=== PATIENT | male | born 1935 | race Asian ===

== ENCOUNTER 2017-07-22 12:21 | Emergency (ER) | payer OTHER ==
[~2017-07-22] VITALS: Ht 152.4 cm; Wt 49.0 kg
[2017-07-22] MEDS ORDERED: IV NORMAL SALINE 1000ML BAG 1,000 ML IV SCH ×3 (13:49→14:55)
[2017-07-22] MEDS ORDERED: DEXAMETHASONE SOD PHOS 20 MG/5 ML VIAL. IV ONE (14:00)
[2017-07-22] MEDS ORDERED: diphenhydrAMINE 50 MG/ML VIAL IVP ONE (14:00)
[2017-07-22] MEDS ORDERED: ONDANSETRON PF 4 MG/2 ML VIAL. IV ONE (14:00)
[2017-07-22] MEDS ORDERED: KETOROLAC 30 MG/ML INJ. IV ONE (14:00)
[2017-07-22] MEDS ORDERED: 0.9 % SODIUM CHLORIDE 10 ML DISP.SYRIN. IV PRN ×2 (14:00→15:00)
[2017-07-22 14:04] LABS: BASO % 1 % (0-3); EOS % 2 % (0-3); HEMATOCRIT 41.7 % (39.0-53.0); HEMOGLOBIN 13.8 g/dL (13.0-17.5); LYMPH # 1.7 x10^3/uL (1.0-4.8); LYMPH % 28 % (24-48); MEAN CORPUSCULAR HEMOGLOBIN 29 pg (25-35); MEAN CORPUSCULAR HGB CONC 33 g/dL (31-37); MEAN CORPUSCULAR VOLUME 88 fL (79-100); MONO % 10 % (0-9); NEUT % 60 % (31-73); PLATELET COUNT 126 x10^3/uL (140-400); RED BLOOD COUNT 4.73 x10^6/uL (4.30-5.70); WHITE BLOOD COUNT 5.9 x10^3/uL (4.0-11.0)
[2017-07-22 14:18] LABS: CALCIUM 9.3 mg/dL (8.5-10.1); CREATININE 0.8 mg/dL (0.7-1.3); GFR 92.3
--- NOTE | 2017-07-22 14:21 | RAD ---
CT of the head without contrast, 07/22/2017: History: Migraine headache There is moderate cerebral atrophy. The ventricles are within normal limits in size. There is no shift of the midline structures. There is no evidence of acute intracranial hemorrhage or mass effect. IMPRESSION: 1. Cerebral atrophy. 2. No acute intracranial abnormality is detected. PQRS Compliance Statement: One or more of the following individualized dose reduction techniques were utilized for this examination: 1. Automated exposure control 2. Adjustment of the mA and/or kV according to patient size 3. Use of iterative reconstruction technique
[2017-07-22 14:23] LABS: ALBUMIN 3.2 g/dL (3.4-5.0); DIRECT BILIRUBIN 0.1 mg/dL (0.0-0.2); TOTAL BILIRUBIN 0.4 mg/dL (0.2-1.0); TOTAL PROTEIN 7.6 g/dL (6.4-8.2)
[2017-07-22 14:35] LABS: BILIRUBIN,URINE NEGATIVE (NEG); GLUCOSE,URINE NEGATIVE (NEG); NITRITE,URINE NEGATIVE (NEG); PH,URINE 7.5; PROTEIN,URINE NEGATIVE (NEG-TRACE); UROBILINOGEN,URINE 0.2 mg/dL (0.2 mg/dL)
--- NOTE | 2017-07-22 14:43 | EKG ---
[facility] [address] [place] [address] Test Date: 2017-07-22 Test Time: 12:40:19 Pat Name: KEV PERAZA Department: Room: Gender: M Pediatric Psychiatrist: : 1935 Requested By: HOLDEN MONROE Order Number: [id number] Reading MD: Jason Abdi MD Measurements Intervals [place] Rate: 79 P: 35 LA: 140 QRS: -11 QRSD: 78 T: 51 QT: 412 QTc: 474 Interpretive Statements SINUS RHYTHM NON-SPECIFIC ST/T CHANGES Electronically Signed On 07-22-2017 16:08:07 TRAP SETTER by Jason Abdi MD
[2017-07-22 14:45] LABS: RBC,URINE 0 /HPF (0-2); WBC,URINE OCC /HPF (0-4)
[2017-07-22 14:46] LABS: BACTERIA,URINE 0 /HPF (0-FEW)
--- NOTE | 2017-07-22 14:50 | PHYS DOC ---
Past Medical History Past Medical History: COPD, Dementia, Migraines, Other Additional Past Medical Histor: enlarged prostate, Past Surgical History: No Surgical History Alcohol Use: None Drug Use: None Adult General Chief Complaint Chief Complaint: HEADACHE HPI HPI As patient is a pleasant 82-year-old male with a history of migraines, prostate hyperplasia, hypertension, depression, COPD who presents with headache that is intermittent for last week. Patient has a known history of migraine disorders and barely is on Imitrex for a long time and has been recently discharged on that medication. He's had persistent daily headaches since that is gotten progressively worse with intermittent bouts of nausea and vomiting secondary to the headaches. Patient has developed increasing postural dizziness is worse with standing. Patient is a headache as dull and achy typical get over his entire scalp and skull is not worse of life and not sudden onset. There is no fevers associated with it. The vomiting is intermittent nonbilious nonbloody. Patient denies any sick contacts or travel outside the country. He further denies any trauma. He has no neck pain or neck stiffness with associated with this headache. Patient denies any shortness of breath or abdominal pain diarrhea or sick contacts. Patient is not normally on any medications for blood pressure and his blood pressures elevated upon arrival. His as best we can tell moderate patient is very hard of hearing and speaks only a dialect from [facility] his son is translating for us because there is no point using the translation phone as the patient cannot hear the questions anyhow. Review of Systems Review of Systems Constitutional: Denies fever or chills [] Eyes: Denies change in visual acuity, redness, or eye pain [] HENT: Denies nasal congestion or sore throat [] Respiratory: Denies cough or shortness of breath [] Cardiovascular: No additional information not addressed in HPI [] GI: Denies abdominal pain, bloody stools or diarrhea but has had some nausea and vomiting : Denies dysuria or hematuria [] Musculoskeletal: Denies back pain or joint pain [] Integument: Denies rash or skin lesions [] Neurologic: Patient is a persistent headache over the top of the skull not described as worse of life sudden onset is dull aching in nature worse with position changes Endocrine: Denies polyuria or polydipsia [] All other systems were reviewed and found to be within normal limits, except as documented in this note. Current Medications Current Medications Current Medications Medications (Trade) Dose Ordered Sig/Ayleen Start Time Stop Time Status Last Admin Dose Admin Dexamethasone Sodium Phosphate (Decadron) 10 mg 1X ONCE 07/22/17 14:00 07/22/17 14:27 DC Diphenhydramine HCl (Benadryl) 50 mg 1X ONCE 07/22/17 14:00 07/22/17 14:27 DC Ketorolac Tromethamine (Toradol) 30 mg 1X ONCE 07/22/17 14:00 07/22/17 14:27 DC Labetalol HCl (Normodyne) 20 mg 1X ONCE 07/22/17 15:00 07/22/17 15:01 Ondansetron HCl (Zofran) 4 mg 1X ONCE 07/22/17 14:00 07/22/17 14:27 DC Sodium Chloride (Normal Saline Flush) 10 ml QSHIFT PRN 07/22/17 14:00 Allergies Allergies Allergies Coded Allergies Type Severity Reaction Last Updated Verified No Known Drug Allergies 07/22/17 No Physical Exam Physical Exam Constitutional: Well developed, well nourished, no acute distress, non-toxic appearance. [] HENT: Normocephalic, atraumatic, bilateral external ears normal, oropharynx moist, no oral exudates, nose normal. [] Eyes: PERRLA, EOMI, conjunctiva normal, no discharge. [] Neck: Normal range of motion, no tenderness, supple, no stridor. [] Cardiovascular:Heart rate regular rhythm, no murmur [] Lungs & Thorax: Bilateral breath sounds clear to auscultation [] Abdomen: Bowel sounds normal, soft, no tenderness, no masses, no pulsatile masses. [] Skin: Warm, dry, no erythema, no rash. [] Back: No tenderness, no CVA tenderness. [] Extremities: No tenderness, no cyanosis, no clubbing, ROM intact, no edema. [] Neurologic: Alert and oriented X 3, normal motor function, normal sensory function, no focal deficits noted. [] Psychologic: Affect normal, judgement normal, mood normal. [] Current Patient Data Vital Signs Vital Signs Date Time Temp Pulse Resp B/P (MAP) Pulse Ox O2 Delivery O2 Flow Rate FiO2 07/22/17 12:34 97.6 84 24 212/101 (138) 95 Room Air 97.6 Lab Values Laboratory Tests Test 07/22/17 12:43 07/22/17 14:25 White Blood Count 5.9 x10^3/uL (4.0-11.0) Red Blood Count 4.73 x10^6/uL (4.30-5.70) Hemoglobin 13.8 g/dL (13.0-17.5) Hematocrit 41.7 % (39.0-53.0) Mean Corpuscular Volume 88 fL (79-100) Mean Corpuscular Hemoglobin 29 pg (25-35) Mean Corpuscular Hemoglobin Concent 33 g/dL (31-37) Red Cell Distribution Width 15.0 % (11.5-14.5) H Platelet Count 126 x10^3/uL (140-400) L Neutrophils (%) (Auto) 60 % (31-73) Lymphocytes (%) (Auto) 28 % (24-48) Monocytes (%) (Auto) 10 % (0-9) H Eosinophils (%) (Auto) 2 % (0-3) Basophils (%) (Auto) 1 % (0-3) Neutrophils # (Auto) 3.5 x10^3uL (1.8-7.7) Lymphocytes # (Auto) 1.7 x10^3/uL (1.0-4.8) Monocytes # (Auto) 0.6 x10^3/uL (0.0-1.1) Eosinophils # (Auto) 0.1 x10^3/uL (0.0-0.7) Basophils # (Auto) 0.0 x10^3/uL (0.0-0.2) Sodium Level 144 mmol/L (136-145) Potassium Level 4.0 mmol/L (3.5-5.1) Chloride Level 109 mmol/L (98-107) H Carbon Dioxide Level 26 mmol/L (21-32) Anion Gap 9 (6-14) Blood Urea Nitrogen 13 mg/dL (8-26) Creatinine 0.8 mg/dL (0.7-1.3) Estimated GFR (Cockcroft-Gault) 92.3 Glucose Level 100 mg/dL (70-99) H Calcium Level 9.3 mg/dL (8.5-10.1) Total Bilirubin 0.4 mg/dL (0.2-1.0) Direct Bilirubin 0.1 mg/dL (0.0-0.2) Aspartate Amino Transferase (AST) 19 U/L (15-37) Alanine Aminotransferase (ALT) 20 U/L (16-63) Alkaline Phosphatase 67 U/L (46-116) C-Reactive Protein, Quantitative 4.0 mg/L (0-3.3) H Total Protein 7.6 g/dL (6.4-8.2) Albumin 3.2 g/dL (3.4-5.0) L Urine Collection Type Unknown Urine Color Yellow Urine Clarity Clear Urine pH 7.5 Urine Specific [place] 1.015 Urine Protein Negative mg/dL (NEG-TRACE) Urine Glucose (UA) Negative mg/dL (NEG) Urine Ketones (Stick) Negative mg/dL (NEG) Urine Blood Negative (NEG) Urine Nitrite Negative (NEG) Urine Bilirubin Negative (NEG) Urine Urobilinogen Dipstick 0.2 mg/dL (0.2 mg/dL) Urine Leukocyte Esterase Negative (NEG) Urine RBC 0 /HPF (0-2) Urine WBC Occ /HPF (0-4) Urine Bacteria 0 /HPF (0-FEW) Urine Mucus Mod /LPF Laboratory Tests 07/22/17 12:43 Laboratory Tests 07/22/17 12:43 EKG EKG []Time of EKG is 12:40 PM 07/22/2017 read by me. EKG demonstrates heart rate of 79 there is a pediatric QRS normal sinus rhythm this a left axis deviation ME interval is 140 which is normal, there is a normal QRS width of 78 QTC is 747 which is mildly elevated or prolonged QT there is a T-wave inversion in lateral leads well. This is an abnormal EKG Radiology/Procedures Radiology/Procedures [] [facility] [address] [place] [address] IMAGING REPORT Signed PATIENT: KEV PERAZA ACCOUNT: [id number] : 1935 LOCATION: ER AGE: 82 SEX: M EXAM STATUS: REG ER ORD. PHYSICIAN: HOLDEN MONROE MD REASON: headache PROCEDURE: CT HEAD WO CONTRAST CT of the head without contrast, 07/22/2017: History: Migraine headache There is moderate cerebral atrophy. The ventricles are within normal limits in size. There is no shift of the midline structures. There is no evidence of acute intracranial hemorrhage or mass effect. IMPRESSION: 1. Cerebral atrophy. 2. No acute intracranial abnormality is detected. PQRS Compliance Statement: One or more of the following individualized dose reduction techniques were utilized for this examination: 1. Automated exposure control 2. Adjustment of the mA and/or kV according to patient size 3. Use of iterative reconstruction technique DICTATED and SIGNED BY: BENJIE ELDRIDGE MD DATE: 07/22/17 9055 CC: HOLDEN MONROE MD; UNKNOWN PCP NAME ~ Course & Med Decision Making Course & Med Decision Making Pertinent Labs and Imaging studies reviewed. (See chart for details) []Patient presents with headache described as typical migraine with dizziness as got progressively worse over last week so patient admits that he's got no neurologic deficits other than this headache is change with position and exertion. Patient noted to be very hypertensive on arrival concerning for possible hypertensive emergency based on headache and new change in pattern. Patient's head CT completed at 2:22 PM deficits no acute intercranial abnormalities of bleeding, mass or stroke. But based on symptoms of continued hypertension patient be given pain medication to see that improves his symptoms. Time is now 2:28 PM patient given Benadryl, Decadron, Toradol and was which have improved significantly but unfortunately patient is still very hypertensive 210/130. Labetalol ordered labetolol dose 2:45 PM Improvement Manager note: Improvement Manager called at of the service 2:54 PM Consult called back at 2:54 PM Discussed the case I presented and they agreed with admission. Time of acceptance to 2:54 pm "I have assessed this patient clinically and believe that their condition requires an admission to the hospital. After consulting the admitting physician about this case, they have asked that I admit this patient to their service as an inpatient based on the clinical presentation and my impression." Impression: Migraine headache, hypertensive urgency, nausea and vomiting At approximately 3 PM patient was reevaluated and his blood pressure is 157/64. He feels markedly better and asking asked to go home. Patient will follow-up with his primary care doctor because he feels so much better he prefer to go home after treatment here in the emergency. MDM headache reevaluation: The patient presented to the emergency part with headache. The patient is now resting comfortably and feels better, is awake, talkative, interactive, and in no acute distress. The patient appears well and is able to tolerate by mouth fluids and medications. Repeat evaluation is unremarkable without any specific neurologic findings. The patient is neurologically intact, has normal mental status, and is ambulatory in the ED. The history, exam, and any diagnostic testing completed in the ED (if any) and the patient's current condition do not suggest meningitis, stroke, sepsis, subarachnoid hemorrhage, intracranial bleed , encephalitis, temporal arteritis, or other significant pathology warranting further testing and continue treatment in the ED. At this point I do not believe admission or neurologic consultation or other specialist evaluation are needed at this point. The patient's vital signs have been stabilized. Patient' s condition is stable and appropriate for discharge. The patient will pursue further up and evaluation with primary care and other designated resources or consulting physicians as indicated in the discharge instructions. Dragon Disclaimer Dragon Disclaimer This electronic medical record was generated, in whole or in part, using a voice recognition dictation system. Departure Departure Impression: Primary Impression: Headache Additional Impression: Hypertension Disposition: 01 HOME, SELF-CARE Condition: IMPROVED Referrals: UNKNOWN PCP NAME (PCP) Patient Instructions: Hypertension, Migraine Headache Additional Instructions: discharge: I've spoken with the patient and/or caregivers. I've explained the patient's condition, diagnosis and treatment plan based on information available to me at this time. I've answered the patient's and/or caregivers questions and addressed any concerns. The patient and/or caregivers have a good understanding the patient's diagnosis, condition and treatment plan as can be expected at this point. Vital signs have been stabilized. The patient's condition is stable for discharge from the emergency department. The patient will pursue further outpatient evaluation with her primary care provider or other designated consulting physician as outlined in the discharge instructions. Patient and/or caregivers are agreeable to this plan of care and follow-up instructions have been explained in detail. The patient and/or caregivers have received these instructions in written format and expressed understanding of these discharge instructions. The patient and her caregivers are aware that if any significant change in condition or worsening of symptoms should prompt him to immediately return to this of the closest emergency department. If an emergent department is not readily available I would encourage him to call 911. I encouraged follow-up with his primary care doctor for repeat evaluation of his high blood pressure which is not getting treated at this time Scripts Sumatriptan Succinate (IMITREX) 100 Mg Tablet 1 TAB PO UD, #9 TAB 1 Refill Prov: HOLDEN MONROE MD 07/22/17 Acetaminophen (TYLENOL) 325 Mg Tablet 1-2 TAB PO QID, #60 TAB 2 Refills Prov: HOLDEN MONROE MD 07/22/17 Ondansetron (ZOFRAN ODT) 4 Mg Tab.rapdis 4 MG PO BID Y for NAUSEA/VOMITING for 7 Days, #14 TAB Prov: HOLDEN MONROE MD 07/22/17 Problem Qualifiers HOLDEN MONROE MD Jul 22, 2017 14:50
[2017-07-22 15:00] VITALS: BP 157/69
[2017-07-22] MEDS ORDERED: ACETAMINOPHEN 325 MG TABLET. PO PRN (15:00)
[2017-07-22] MEDS ORDERED: ONDANSETRON PF 4 MG/2 ML VIAL. IV PRN (15:00)
[2017-07-22] MEDS ORDERED: LABETALOL 20 MG/4 ML DISP.SYRIN. IVP ONE (15:00)
[2017-07-22] MEDS ORDERED: ACET325T9 PO (15:08)
[2017-07-22] MEDS ORDERED: ONDA4TAB10 PO (15:08)
[2017-07-22] MEDS ORDERED: SUMA100T3 PO (15:08)
== END 2017-07-22 15:35 | disposition home or self-care (01) ==
LOC: ER 12:21
DX: R51 Headache (principal); G43.909 Migraine, unspecified, not intractable, without status migrainosus; I10 Essential (primary) hypertension; F03.90 Unspecified dementia, unspecified severity, without behavioral disturbance, psychotic disturbance, mood disturbance, and anxiety; J44.9 Chronic obstructive pulmonary disease, unspecified; N40.0 Benign prostatic hyperplasia without lower urinary tract symptoms
CPT/HCPCS: 36415; 70450; 80048; 80076; 81001; 85025; 85651; 86140; 93005; 99285-25

== ENCOUNTER 2021-12-04 01:43 | Inpatient (IN) | payer OTHER ==
[~2021-12-04] VITALS: Ht 165.1 cm; Wt 58.2 kg
[~2021-12-04 01:43] MED LIST: ACET325T9 PO; ONDA4TAB10 PO; SUMA100T3 PO
[2021-12-04] MEDS ORDERED: FAMOTIDINE 20 MG/2 ML VIAL IVP ONE (02:00)
[2021-12-04] MEDS ORDERED: ONDANSETRON PF 4 MG/2 ML VIAL. IVP ONE ×2 (02:00→04:15)
[2021-12-04] MEDS ORDERED: MORPHINE SULFATE 4 MG/ML INJ. IVP ONE (02:00)
[2021-12-04] MEDS ORDERED: IV NORMAL SALINE 1000ML BAG 1,000 ML IV ONE ×2 (02:00→02:15)
[2021-12-04 02:18] LABS: BASO # 0.1 x10^3/uL (0.0-0.2); BASO % 0 % (0-3); EOS # 0.1 x10^3/uL (0.0-0.7); EOS % 1 % (0-3); HEMATOCRIT 46.3 % (39.0-53.0); HEMOGLOBIN 14.9 g/dL (13.0-17.5); LYMPH # 3.4 x10^3/uL (1.0-4.8); LYMPH % 22 % (24-48); MEAN CORPUSCULAR HEMOGLOBIN 28 pg (25-35); MEAN CORPUSCULAR HGB CONC 32 g/dL (31-37); MEAN CORPUSCULAR VOLUME 88 fL (79-100); MONO % 6 % (0-9); NEUT # 10.8 x10^3/uL (1.8-7.7); NEUT % 71 % (31-73); PLATELET COUNT 150 x10^3/uL (140-400); RED BLOOD COUNT 5.28 x10^6/uL (4.30-5.70); RED CELL DISTRIBUTION WIDTH 15.6 % (11.5-14.5); WHITE BLOOD COUNT 15.3 x10^3/uL (4.0-11.0)
[2021-12-04 02:25] LABS: PROTHROMBIN TIME PATIENT 13.3 SEC (11.7-14.0)
[2021-12-04 02:42] LABS: INFLUENZA A PATIENT NEGATIVE (NEGATIVE); INFLUENZA B PATIENT NEGATIVE (NEGATIVE)
[2021-12-04 02:47] LABS: BACTERIA,URINE 0 /HPF (0-FEW)
[2021-12-04 02:55] LABS: ALBUMIN 3.6 g/dL (3.4-5.0); ALBUMIN/GLOBULIN RATIO 0.9 (1.0-1.7); CALCIUM 8.9 mg/dL (8.5-10.1); CREATININE 1.4 mg/dL (0.7-1.3); GFR 47.9; MAGNESIUM 2.2 mg/dL (1.8-2.4); TOTAL BILIRUBIN 0.8 mg/dL (0.2-1.0); TOTAL PROTEIN 7.8 g/dL (6.4-8.2)
[2021-12-04 02:56] LABS: POTASSIUM 2.9 mmol/L (3.5-5.1)
[2021-12-04] MEDS ORDERED: POTASSIUM CHLORIDE 20MEQ 100 ML IV ONE (03:00)
[2021-12-04] MEDS ORDERED: IOHEXOL 300 MG/ML 100ML VIAL. IV ONE (03:15)
[2021-12-04] MEDS ORDERED: CONTRAST GIVEN. MC PRN (03:15)
[2021-12-04] MEDS: POTASSIUM CHLORIDE 10MEQ 100 ML IV SCH ×2 (03:38→05:28)
--- NOTE | 2021-12-04 03:44 | RAD ---
EXAMINATION: XR CHEST 1V CLINICAL HISTORY: Chest pain. EXAM DATE/TIME: 12/04/2021 3:00 AM COMPARISON: None FINDINGS: Lines, Tubes, and Devices: None. Cardiomediastinal Silhouette: Normal heart size. Aortic atherosclerotic calcification. Lungs and Pleura: Diffuse interstitial prominence, possibly chronic, and ill-defined hazy opacities i n the bilateral mid to lower lung zones. No pleural effusion. Bones and Soft Tissues: Degenerative changes in the thoracic spine. IMPRESSION: Ill-defined hazy opacities in the bilateral mid to lower lung zones and nonspecific interstitial prom inence, possibly related to edema and/or atypical infection. Electronically signed by: Matt Aden DO (12/04/2021 3:42 AM) [facility]
--- NOTE | 2021-12-04 03:57 | RAD ---
EXAMINATION: CT ABDOMEN+PELVIS W CLINICAL HISTORY: Right lower quadrant abdominal pain.. TECHNIQUE: CT of the abdomen and pelvis was performed using standard technique, scanning from just ab ove the dome of the diaphragm to the symphysis pubis following administration of intravenous contrast . CT Dose Reduction Employed: One or more of the following individualized dose reduction techniques wer e utilized for this examination: 1. Automated exposure control 2. Adjustment of the mA and/or kV ac cording to patient size 3. Use of iterative reconstruction technique. COMPARISON: None FINDINGS: Motion degraded images of the lung bases demonstrate bibasilar interstitial and groundglass opacities . Fat stranding and edema surrounding the pancreatic head and neck and first-third segments of the duod enum. No evidence of pancreatic necrosis or organized peripancreatic collection. Mild ill-defined flu id along the left anterior pararenal space, likely reactive. Mildly distended gallbladder with circumferential hypodense wall thickening and/or pericholecystic fl uid, possibly reactive. No visualized cholelithiasis. Several subcentimeter hypoenhancing lesions in the liver and left kidney, too small adequately characterize. Spleen, adrenal glands, and right kidne y unremarkable. Mildly filled urinary bladder. Nonenlarged prostate. No dilated bowel. Appendix not definitively visualized. Mild arterial atherosclerotic calcification without aneurysm. Mild free fluid in the right paracolic gutter and dependent abdomen. Multilevel thoracolumbar degenerative changes. IMPRESSION: Fat stranding and edema surrounding the pancreatic head and neck and first-third segments of the duod enum. Differential includes acute pancreatitis/chronic pancreatitis versus duodenitis. Correlate with serum lipase levels. Suspected reactive changes in the gallbladder is described. Electronically signed by: Matt Aden DO (12/04/2021 3:54 AM) [facility]
--- NOTE | 2021-12-04 04:11 | PHYS DOC ---
Past Medical History Past Medical History: COPD, Dementia, Migraines, Other Additional Past Medical Histor: enlarged prostate, Past Surgical History: No Surgical History Smoking Status: Never Smoker Alcohol Use: None Drug Use: None Adult General Chief Complaint Chief Complaint: ABDOMINAL PAIN HPI HPI Patient is a 86 year old male with abdominal pains been present for about 12 hours. This is more on the right side of the abdomen that is diffuse. The patient has had several episodes of vomiting and feels nauseated currently. He has not had any diarrhea. No blood in his emesis. No fever that he is aware of. He is not any chest pain, shortness of breath, sick contacts or trauma. Symptoms are progressively getting worse in intensity as far as the pain goes. Constant ache. Review of Systems Review of Systems Constitutional: Denies fever Eyes: Denies change in visual acuity or eye pain HENT: Denies sore throat Respiratory: Denies shortness of breath Cardiovascular: Denies chest pain GI: Reports abd pain : Denies dysuria Musculoskeletal: Denies back or extremity injury Integument: Denies rash or skin lesions Neurologic: Denies headache, focal weakness or sensory changes All other systems were reviewed and found to be within normal limits, except as documented in this note. Current Medications Current Medications Current Medications Medications (Trade) Dose Ordered Sig/Ayleen Start Time Stop Time Status Last Admin Dose Admin Famotidine (Pepcid Vial) 20 mg 1X ONCE 12/04/21 02:00 12/04/21 02:01 DC 12/04/21 02:11 20 MG Info (CONTRAST GIVEN -- Rx MONITORING) 1 each PRN DAILY PRN 12/04/21 03:15 12/06/21 03:14 Iohexol (Omnipaque 300 Mg/ml) 60 ml 1X ONCE 12/04/21 03:15 12/04/21 03:16 DC 12/04/21 03:34 60 ML Morphine Sulfate (Morphine Sulfate) 4 mg 1X ONCE 12/04/21 02:00 12/04/21 02:01 DC 12/04/21 02:12 4 MG Ondansetron HCl (Zofran) 4 mg 1X ONCE 12/04/21 04:15 12/04/21 04:16 UNV Potassium Chloride/Water 100 ml @ 100 mls/hr Q1H 12/04/21 03:15 12/04/21 05:14 12/04/21 03:38 100 MLS/HR Sodium Chloride 1,000 ml @ 1,000 mls/hr 1X ONCE 12/04/21 02:15 12/04/21 03:14 DC 12/04/21 02:13 1,000 MLS/HR Allergies Allergies Allergies Coded Allergies Type Severity Reaction Last Updated Verified No Known Drug Allergies 07/22/17 No Physical Exam Physical Exam Constitutional: Well developed, well nourished, no acute distress, non-toxic appearance. HENT: Normocephalic, atraumatic, bilateral external ears normal, mucosa moist, nose normal. Eyes: EOMI, conjunctiva normal, no discharge. Neck: Normal range of motion, supple, no stridor, no meningeal signs. Cardiovascular: Initially tachycardic at 140 with a regular rhythm, with fluids and pain management patient's heart rates come down to 100 and his converted into a regular rhythm. Lungs & Thorax: Bilateral breath sounds clear to auscultation Abdomen: Soft, generalized tenderness, no obvious masses Skin: Warm, dry, no erythema, no rash. Extremities: No tenderness, no cyanosis, no clubbing, ROM intact, no edema. Neurologic: Alert and oriented, normal motor function, normal sensory function, no focal deficits noted. Psychologic: Affect normal, judgement normal, mood normal. Current Patient Data Vital Signs Vital Signs Date Time Temp Pulse Resp B/P (MAP) Pulse Ox O2 Delivery O2 Flow Rate FiO2 12/04/21 03:35 96.0 96.0 12/04/21 02:59 106 29 172/100 (124) 92 Nasal Cannula 3.0 Lab Values Laboratory Tests Test 12/04/21 02:00 12/04/21 02:21 White Blood Count 15.3 x10^3/uL (4.0-11.0) H Red Blood Count 5.28 x10^6/uL (4.30-5.70) Hemoglobin 14.9 g/dL (13.0-17.5) Hematocrit 46.3 % (39.0-53.0) Mean Corpuscular Volume 88 fL (79-100) Mean Corpuscular Hemoglobin 28 pg (25-35) Mean Corpuscular Hemoglobin Concent 32 g/dL (31-37) Red Cell Distribution Width 15.6 % (11.5-14.5) H Platelet Count 150 x10^3/uL (140-400) Neutrophils (%) (Auto) 71 % (31-73) Lymphocytes (%) (Auto) 22 % (24-48) L Monocytes (%) (Auto) 6 % (0-9) Eosinophils (%) (Auto) 1 % (0-3) Basophils (%) (Auto) 0 % (0-3) Neutrophils # (Auto) 10.8 x10^3/uL (1.8-7.7) H Lymphocytes # (Auto) 3.4 x10^3/uL (1.0-4.8) Monocytes # (Auto) 1.0 x10^3/uL (0.0-1.1) Eosinophils # (Auto) 0.1 x10^3/uL (0.0-0.7) Basophils # (Auto) 0.1 x10^3/uL (0.0-0.2) Prothrombin Time 13.3 SEC (11.7-14.0) Prothrombin Time INR 1.0 (0.8-1.1) Activated Partial Thromboplast Time 29 SEC (24-38) Sodium Level 142 mmol/L (136-145) Potassium Level 2.9 mmol/L (3.5-5.1) *L Chloride Level 106 mmol/L (98-107) Carbon Dioxide Level 25 mmol/L (21-32) Anion Gap 11 (6-14) Blood Urea Nitrogen 17 mg/dL (8-26) Creatinine 1.4 mg/dL (0.7-1.3) H Estimated GFR (Cockcroft-Gault) 47.9 BUN/Creatinine Ratio 12 (6-20) Glucose Level 255 mg/dL (70-99) H Lactic Acid Level 4.4 mmol/L (0.4-2.0) *H Calcium Level 8.9 mg/dL (8.5-10.1) Magnesium Level 2.2 mg/dL (1.8-2.4) Total Bilirubin 0.8 mg/dL (0.2-1.0) Aspartate Amino Transferase (AST) 109 U/L (15-37) H Alanine Aminotransferase (ALT) 86 U/L (16-63) H Alkaline Phosphatase 85 U/L (46-116) Troponin I High Sensitivity 7 ng/L (4-75) BJ-Gxq-K-Type Natriuretic Peptide 71 pg/mL (0-449) Total Protein 7.8 g/dL (6.4-8.2) Albumin 3.6 g/dL (3.4-5.0) Albumin/Globulin Ratio 0.9 (1.0-1.7) L Lipase 60401 U/L (73-393) H Influenza Type A Antigen Negative (NEGATIVE) Influenza Type B Antigen Negative (NEGATIVE) SARS-CoV-2 Antigen (Rapid) Negative (NEGATIVE) Urine Collection Type U cath Urine Color (Auto) Light yellow Urine Turbidity Clear Urine pH (Auto) 5.5 (<5.0-8.0) Urine Specific [place] 1.011 (1.000-1.030) Urine Protein (Auto) Negative mg/dL (Negative) Urine Glucose (Auto)(UA) 500 mg/dL (Negative) Urine Ketones (Auto) Negative mg/dL (Negative) Urine Blood (Auto) Negative (Negative) Urine Nitrite Negative (Negative) Urine Bilirubin (Auto) Negative (Negative) Urine Urobilinogen (Auto) Normal mg/dL (Normal) Urine Leukocyte Esterase (Auto) Negative (Negative) Urine RBC 3-5 /HPF (0-2) Urine WBC 1-4 /HPF (0-4) Urine Squamous Epithelial Cells Occ /LPF Urine Bacteria 0 /HPF (0-FEW) Urine Mucus Slight /LPF Laboratory Tests 12/04/21 02:00 Laboratory Tests 12/04/21 02:00 EKG EKG Twelve-lead EKG demonstrates atrial fibrillation with rate of 40. QRS and QT corrected intervals are 84 and [address] segment elevation or depression. [] Radiology/Procedures Radiology/Procedures [] Impressions: PATIENT: KEV PERAZAACCOUNT: [id number]#: [id number] : 1935 LOCATION: ER AGE: 86 SEX: M EXAM STATUS: REG ER ORD. PHYSICIAN: ZHEN POND MD REASON: pain PROCEDURE: CHEST AP ONLY EXAMINATION: XR CHEST 1V CLINICAL HISTORY: Chest pain. EXAM DATE/TIME: 12/04/2021 3:00 AM COMPARISON: None FINDINGS: Lines, Tubes, and Devices: None. Cardiomediastinal Silhouette: Normal heart size. Aortic atherosclerotic calcification. Lungs and Pleura: Diffuse interstitial prominence, possibly chronic, and ill- defined hazy opacities in the bilateral mid to lower lung zones. No pleural eff usion. Bones and Soft Tissues: Degenerative changes in the thoracic spine. IMPRESSION: Ill-defined hazy opacities in the bilateral mid to lower lung zones and nonspecific interstitial prominence, possibly related to edema and/or atypical infection. Electronically signed by: Matt Chairez DO (12/04/2021 3:42 AM) [facility] DICTATED and SIGNED BY: MATT CHAIREZ DO DATE: 12/04/21338 PATIENT: KEV PERAZA ACCOUNT: [id number] : 1935 LOCATION: ER AGE: 86 SEX: M EXAM STATUS: REG ER ORD. PHYSICIAN: ZHEN POND MD REASON: rlq pain;OMNI 300, 60ML PROCEDURE: CT ABD PELV W/ IV CONTRST ONLY EXAMINATION: CT ABDOMEN+PELVIS W CLINICAL HISTORY: Right lower quadrant abdominal pain.. TECHNIQUE: CT of the abdomen and pelvis was performed using standard technique, scanning from just above the dome of the diaphragm to the symphysis pubis following administration of intravenous contrast. CT Dose Reduction Employed: One or more of the following individualized dose reduction techniques were utilized for this examination: 1. Automated exposure control 2. Adjustment of the mA and/or kV according to patient size 3. Use of iterative reconstruction technique. COMPARISON: None FINDINGS: Motion degraded images of the lung bases demonstrate bibasilar interstitial and groundglass opacities. Fat stranding and edema surrounding the pancreatic head and neck and first-third segments of the duodenum. No evidence of pancreatic necrosis or organized peripancreatic collection. Mild ill-defined fluid along the left anterior pararenal space, likely reactive. Mildly distended gallbladder with circumferential hypodense wall thickening and/or pericholecystic fluid, possibly reactive. No visualized cholelithiasis. Several subcentimeter hypoenhancing lesions in the liver and left kidney, too small adequately characterize. Spleen, adrenal glands, and right kidney unremarkable. Mildly filled urinary bladder. Nonenlarged prostate. No dilated bowel. Appendix not definitively visualized. Mild arterial atherosclerotic calcification without aneurysm. Mild free fluid in the right paracolic gutter and dependent abdomen. Multilevel thoracolumbar degenerative changes. IMPRESSION: Fat stranding and edema surrounding the pancreatic head and neck and first-third segments of the duodenum. Differential includes acute pancreatitis/chronic pancreatitis versus duodenitis. Correlate with serum lipase levels. Suspected reactive changes in the gallbladder is described. Electronically signed by: Matt Chairez DO (12/04/2021 3:54 AM) [facility] DICTATED and SIGNED BY: MATT CHAIREZ DO DATE: 12/04/21342 Course & Med Decision Making Course & Med Decision Making Pertinent Labs and Imaging studies reviewed. (See chart for details) [] This is an 86-year-old male presents with abdominal pain. CT of the abdomen and pelvis demonstrates pancreatitis. Lipase is markedly elevated at 22,000. Potassium was 2.9, patient was supplemented with 20 mEq orally. We will keep him n.p.o. for now. He was given a liter of normal saline and 4 morphine with 4 of Zofran which was repeated. Patient also has a lactate of 4.4 and was transiently in atrial fibrillation. We will keep him in the hospital for further management, condition is stable but guarded at this time. Dragon Disclaimer Dragon Disclaimer This electronic medical record was generated, in whole or in part, using a voice recognition dictation system. Departure Departure Impression: Primary Impression: Pancreatitis Additional Impressions: Hypokalemia Lactic acidosis Paroxysmal atrial fibrillation Disposition: ADMITTED INPATIENT Condition: GUARDED Referrals: UNKNOWN PCP NAME (PCP) Problem Qualifiers ZHEN POND MD Dec 04, 2021 04:11
[2021-12-04] MEDS ORDERED: MORPHINE SULFATE 2 MG/ML INJ. IVP PRN (04:15)
[2021-12-04] MEDS ORDERED: ONDANSETRON PF 4 MG/2 ML VIAL. IVP PRN ×2 (04:15→10:00)
[2021-12-04] MEDS ORDERED: PROCHLORPERAZINE 10 MG/2 ML VIAL. IV ONE (05:00)
[2021-12-04 05:30] VITALS: BP 166/99
[2021-12-04 07:00] VITALS: BP 136/88
[2021-12-04] MEDS ORDERED: IPRA4AER IH (07:21)
[2021-12-04] MEDS ORDERED: CETI10TA16 PO (07:22)
[2021-12-04] MEDS ORDERED: POTASSIUM CL 20MEQ D5-0.45NACL 1,000 ML IV ONE (07:30)
--- NOTE | 2021-12-04 08:31 | EKG ---
[facility] [address] [place] [address] Test Date: 2021-12-04 Test Time: 01:59:38 Pat Name: KEV PERAZA Department: Room: 402 1 Gender: M Belt Operator: : 1935 Requested By: ZHEN POND Order Number: [id number] Reading MD: Dakotah Javier Measurements Intervals [place] Rate: 140 P: [place]: QRS: -32 QRSD: 84 T: 62 QT: 308 QTc: 474 Interpretive Statements ATRIAL FIBRILLATION WITH RVR ABNORMAL LEFT AXIS DEVIATION LEFT ANTERIOR FASCICULAR BLOCK ST & T ABNORMALITY, CONSIDER HIGH LATERAL ISCHEMIA OR LEFT VENTRICULAR STRAIN ABNORMAL ECG Electronically Signed On 12-06-2021 21:33:32 CDT by Dakotah Javier
--- NOTE | 2021-12-04 08:50 | PDOC2 ---
RUDDYCINDY Brian [employer] OPERATOR 12/04/21 0850: CONSULT Date of Consult Date of Consult DATE: 12/04/21 TIME: 08:42 Reason for Consult Reason for Consult: pancreatitis Referring Physician Referring Physician: Dr Heath Identification/Chief Complaint Chief Complaint abdominal pain Source Source: Chart review, Patient History of Present Illness Reason for Visit: Family present and interprets Admitted with acute upper abdominal pain, nausea, and emesis. No similar pain in past. Denies alcohol use No daily medication use no surgical hx Past Medical History CENTRAL NERVOUS SYSTEM: Migraine Renal/: Benign prostatic enlarg. Past Surgical History Past Surgical History: No pertinent history Family History Family History: Family History Unknown Social History No ALCOHOL: none Drugs: None Lives: with Family Current Problem List Problem List Problems Medical Problems: (1) Hypokalemia Status: Acute (2) Lactic acidosis Status: Acute (3) Pancreatitis Status: Acute (4) Paroxysmal atrial fibrillation Status: Acute Current Medications Current Medications Current Medications Morphine Sulfate (Morphine Sulfate) 4 mg 1X ONCE IVP Last administered on 12/04/21at 02:12; Start 12/04/21 at 02:00; Stop 12/04/21 at 02:01; Status DC Sodium Chloride 1,000 ml @ 1,000 mls/hr 1X ONCE IV Last administered on 12/04/21at 02:11; Start 12/04/21 at 02:00; Stop 12/04/21 at 02:59; Status DC Ondansetron HCl (Zofran) 4 mg 1X ONCE IVP Last administered on 12/04/21at 02:1 1; Start 12/04/21 at 02:00; Stop 12/04/21 at 02:01; Status DC Famotidine (Pepcid Vial) 20 mg 1X ONCE IVP Last administered on 12/04/21at 02:11; Start 12/04/21 at 02:00; Stop 12/04/21 at 02:01; Status DC Sodium Chloride 1,000 ml @ 1,000 mls/hr 1X ONCE IV Last administered on 12/04/21at 02:13; Start 12/04/21 at 02:15; Stop 12/04/21 at 03:14; Status DC Potassium Chloride/Water 100 ml @ 100 mls/hr 1X ONCE IV ; Start 12/04/21 at 03:00; Stop 12/04/21 at 03:59; Status UNV Potassium Chloride/Water 100 ml @ 100 mls/hr Q1H IV Last administered on 12/04/21at 05:28; Start 12/04/21 at 03:15; Stop 12/04/21 at 05:14; Status DC Iohexol (Omnipaque 300 Mg/ml) 60 ml 1X ONCE IV Last administered on 12/04/21at 03:34; Start 12/04/21 at 03:15; Stop 12/04/21 at 03:16; Status DC Info (CONTRAST GIVEN -- Rx MONITORING) 1 each PRN DAILY PRN MC SEE COMMENTS; Start 12/04/21 at 03:15; Stop 12/06/21 at 03:14 Ondansetron HCl (Zofran) 4 mg 1X ONCE IVP Last administered on 12/04/21at 04:12; Start 12/04/21 at 04:15; Stop 12/04/21 at 04:16; Status DC Ondansetron HCl (Zofran) 4 mg PRN Q8HRS PRN IVP NAUSEA/VOMITING; Start 12/04/21 at 04:15; Stop 12/06/21 at 04:14 Morphine Sulfate (Morphine Sulfate) 2 mg PRN Q2HR PRN IVP PAIN; Start 12/04/21 at 04:15; Stop 12/06/21 at 04:14 Prochlorperazine Edisylate (Compazine) 5 mg 1X ONCE IV Last administered on 12/04/21at 05:49; Start 12/04/21 at 05:00; Stop 12/04/21 at 05:01; Status DC Potassium Chloride/Dextrose/ Sod Cl 1,000 ml @ 125 mls/hr Q8H ONCE IV Last administered on 12/04/21at 08:34; Start 12/04/21 at 07:30; Stop 12/04/21 at 15:29 Active Scripts Active Imitrex (Sumatriptan Succinate) 100 Mg Tablet 1 Tab PO UD Tylenol (Acetaminophen) 325 Mg Tablet 1-2 Tab PO QID Zofran Odt (Ondansetron) 4 Mg Tab.rapdis 4 Mg PO BID PRN 7 Days Reported Cetirizine Hcl 10 Mg Tablet 1 Tab PO DAILY Combivent Respimat Inhal (Ipratropium/Albuterol Sulfate) 4 Gm Aer.w.adap 2 Inh IH QID Allergies Allergies: Coded Allergies: No Known Drug Allergies (Unverified , 07/22/17) ROS General: YES: Fatigue; No: Chills PSYCHOLOGICAL ROS: No: Anxiety, Depression Eyes: No Blurry vision, No Double vision Hematological and Lymphatic: No: Bleeding Problems, Blood Clots Respiratory: No: Cough, Shortness of breath Cardiovascular: No Chest Pain, No Palpitations Gastrointestinal: Yes Other (see hpi) Genitourinary: No Dysuria, No Retention Musculoskeletal: No Joint Pain, No Muscle Pain Neurological: No Impaired Coord/balance, No Numbness/Tingling Skin: No Pruritus, No Rash Physical Exam General: Alert, Cooperative, Other (frail) HEENT: Atraumatic, PERRLA Lungs: Clear to auscultation, Normal air movement Heart: Normal S1, Normal S2, Other (tachy) Abdomen: Soft, Other (thin, LUQ moderate ttp ) Extremities: No clubbing, No cyanosis Skin: No rashes, No breakdown Neuro: Normal gait, Normal speech Psych/Mental Status: Mental status NL, Mood NL MUSCULOSKELETAL: No deformity, No swelling Vitals VITALS Vital Signs Date Time Temp Pulse Resp B/P (MAP) Pulse Ox O2 Delivery O2 Flow Rate FiO2 12/04/21 07:40 Room Air 12/04/21 07:00 98.1 118 19 136/88 (104) 92 3.0 98.1 Labs Labs Laboratory Tests Test 12/04/21 02:00 12/04/21 02:21 12/04/21 06:25 White Blood Count 15.3 x10^3/uL (4.0-11.0) Red Blood Count 5.28 x10^6/uL (4.30-5.70) Hemoglobin 14.9 g/dL (13.0-17.5) Hematocrit 46.3 % (39.0-53.0) Mean Corpuscular Volume 88 fL (79-100) Mean Corpuscular Hemoglobin 28 pg (25-35) Mean Corpuscular Hemoglobin Concent 32 g/dL (31-37) Red Cell Distribution Width 15.6 % (11.5-14.5) Platelet Count 150 x10^3/uL (140-400) Neutrophils (%) (Auto) 71 % (31-73) Lymphocytes (%) (Auto) 22 % (24-48) Monocytes (%) (Auto) 6 % (0-9) Eosinophils (%) (Auto) 1 % (0-3) Basophils (%) (Auto) 0 % (0-3) Neutrophils # (Auto) 10.8 x10^3/uL (1.8-7.7) Lymphocytes # (Auto) 3.4 x10^3/uL (1.0-4.8) Monocytes # (Auto) 1.0 x10^3/uL (0.0-1.1) Eosinophils # (Auto) 0.1 x10^3/uL (0.0-0.7) Basophils # (Auto) 0.1 x10^3/uL (0.0-0.2) Prothrombin Time 13.3 SEC (11.7-14.0) Prothromb Time International Ratio 1.0 (0.8-1.1) Activated Partial Thromboplast Time 29 SEC (24-38) Sodium Level 142 mmol/L (136-145) Potassium Level 2.9 mmol/L (3.5-5.1) Chloride Level 106 mmol/L (98-107) Carbon Dioxide Level 25 mmol/L (21-32) Anion Gap 11 (6-14) Blood Urea Nitrogen 17 mg/dL (8-26) Creatinine 1.4 mg/dL (0.7-1.3) Estimated GFR (Cockcroft-Gault) 47.9 BUN/Creatinine Ratio 12 (6-20) Glucose Level 255 mg/dL (70-99) Lactic Acid Level 4.4 mmol/L (0.4-2.0) 2.7 mmol/L (0.4-2.0) Calcium Level 8.9 mg/dL (8.5-10.1) Magnesium Level 2.2 mg/dL (1.8-2.4) Total Bilirubin 0.8 mg/dL (0.2-1.0) Aspartate Amino Transf (AST/SGOT) 109 U/L (15-37) Alanine Aminotransferase (ALT/SGPT) 86 U/L (16-63) Alkaline Phosphatase 85 U/L (46-116) Troponin I High Sensitivity 7 ng/L (4-75) AB-Tql-G-Type Natriuretic Peptide 71 pg/mL (0-449) Total Protein 7.8 g/dL (6.4-8.2) Albumin 3.6 g/dL (3.4-5.0) Albumin/Globulin Ratio 0.9 (1.0-1.7) Lipase 45336 U/L (73-393) Influenza Type A Antigen Negative (NEGATIVE) Influenza Type B Antigen Negative (NEGATIVE) SARS-CoV-2 Antigen (Rapid) Negative (NEGATIVE) Urine Collection Type U cath Urine Color (Auto) Light yellow Urine Turbidity Clear Urine pH (Auto) 5.5 (<5.0-8.0) Urine Specific [place] 1.011 (1.000-1.030) Urine Protein (Auto) Negative mg/dL (Negative) Urine Glucose (Auto)(UA) 500 mg/dL (Negative) Urine Ketones (Auto) Negative mg/dL (Negative) Urine Blood (Auto) Negative (Negative) Urine Nitrite Negative (Negative) Urine Bilirubin (Auto) Negative (Negative) Urine Urobilinogen (Auto) Normal mg/dL (Normal) Urine Leukocyte Esterase (Auto) Negative (Negative) Urine RBC 3-5 /HPF (0-2) Urine WBC 1-4 /HPF (0-4) Urine Squamous Epithelial Cells Occ /LPF Urine Bacteria 0 /HPF (0-FEW) Urine Mucus Slight /LPF Laboratory Tests Test 12/04/21 02:00 12/04/21 02:21 12/04/21 06:25 White Blood Count 15.3 x10^3/uL (4.0-11.0) Red Blood Count 5.28 x10^6/uL (4.30-5.70) Hemoglobin 14.9 g/dL (13.0-17.5) Hematocrit 46.3 % (39.0-53.0) Mean Corpuscular Volume 88 fL (79-100) Mean Corpuscular Hemoglobin 28 pg (25-35) Mean Corpuscular Hemoglobin Concent 32 g/dL (31-37) Red Cell Distribution Width 15.6 % (11.5-14.5) Platelet Count 150 x10^3/uL (140-400) Neutrophils (%) (Auto) 71 % (31-73) Lymphocytes (%) (Auto) 22 % (24-48) Monocytes (%) (Auto) 6 % (0-9) Eosinophils (%) (Auto) 1 % (0-3) Basophils (%) (Auto) 0 % (0-3) Neutrophils # (Auto) 10.8 x10^3/uL (1.8-7.7) Lymphocytes # (Auto) 3.4 x10^3/uL (1.0-4.8) Monocytes # (Auto) 1.0 x10^3/uL (0.0-1.1) Eosinophils # (Auto) 0.1 x10^3/uL (0.0-0.7) Basophils # (Auto) 0.1 x10^3/uL (0.0-0.2) Prothrombin Time 13.3 SEC (11.7-14.0) Prothromb Time International Ratio 1.0 (0.8-1.1) Activated Partial Thromboplast Time 29 SEC (24-38) Sodium Level 142 mmol/L (136-145) Potassium Level 2.9 mmol/L (3.5-5.1) Chloride Level 106 mmol/L (98-107) Carbon Dioxide Level 25 mmol/L (21-32) Anion Gap 11 (6-14) Blood Urea Nitrogen 17 mg/dL (8-26) Creatinine 1.4 mg/dL (0.7-1.3) Estimated GFR (Cockcroft-Gault) 47.9 BUN/Creatinine Ratio 12 (6-20) Glucose Level 255 mg/dL (70-99) Lactic Acid Level 4.4 mmol/L (0.4-2.0) 2.7 mmol/L (0.4-2.0) Calcium Level 8.9 mg/dL (8.5-10.1) Magnesium Level 2.2 mg/dL (1.8-2.4) Total Bilirubin 0.8 mg/dL (0.2-1.0) Aspartate Amino Transf (AST/SGOT) 109 U/L (15-37) Alanine Aminotransferase (ALT/SGPT) 86 U/L (16-63) Alkaline Phosphatase 85 U/L (46-116) Troponin I High Sensitivity 7 ng/L (4-75) SZ-Ybc-E-Type Natriuretic Peptide 71 pg/mL (0-449) Total Protein 7.8 g/dL (6.4-8.2) Albumin 3.6 g/dL (3.4-5.0) Albumin/Globulin Ratio 0.9 (1.0-1.7) Lipase 27117 U/L (73-393) Influenza Type A Antigen Negative (NEGATIVE) Influenza Type B Antigen Negative (NEGATIVE) SARS-CoV-2 Antigen (Rapid) Negative (NEGATIVE) Urine Collection Type U cath Urine Color (Auto) Light yellow Urine Turbidity Clear Urine pH (Auto) 5.5 (<5.0-8.0) Urine Specific [place] 1.011 (1.000-1.030) Urine Protein (Auto) Negative mg/dL (Negative) Urine Glucose (Auto)(UA) 500 mg/dL (Negative) Urine Ketones (Auto) Negative mg/dL (Negative) Urine Blood (Auto) Negative (Negative) Urine Nitrite Negative (Negative) Urine Bilirubin (Auto) Negative (Negative) Urine Urobilinogen (Auto) Normal mg/dL (Normal) Urine Leukocyte Esterase (Auto) Negative (Negative) Urine RBC 3-5 /HPF (0-2) Urine WBC 1-4 /HPF (0-4) Urine Squamous Epithelial Cells Occ /LPF Urine Bacteria 0 /HPF (0-FEW) Urine Mucus Slight /LPF Assessment/Plan Assessment/Plan acute pancreatitis lipase 22,000 will US GB to eval further, trigs pending, denies alcohol agree with GI consult bowel rest, hydration, electrolyte management TIERA BLANCHARD MD 12/04/21 1408: CONSULT Assessment/Plan Assessment/Plan Pt seen and examined. Agree with Ms. Bermudez's note Pt with c/o epigastric abd pain US c/w cholelithiasis, agree with bowel rest and supportive care. Plan cholecystectomy prior to d/c d/w pt's family. Thanks for consult! CINDY BERMUDEZ APRN Dec 04, 2021 08:50 TIERA BLANCHARD MD Dec 04, 2021 14:08
--- NOTE | 2021-12-04 09:21 | PDOC1 ---
History and Physical Date of Admission Date of Admission DATE: 12/04/21 TIME: 09:19 Identification/Chief Complaint Chief Complaint Abdominal pain Source Source: Caregiver History of Present Illness History of Present Illness Patient is 86-year-old male with no significant past medical history, who presents to the ED with complaints of abdominal pain that started abruptly yesterday evening. Much history is obtained through patient's [id number] as he does not speak much Romansh. Family also notes associated nausea and vomiting. Upon arrival in the ED he was tachycardic and tachypneic. Labs on admission showed CBC 15.3, potassium 2.9, creatinine 1.4, alk phos 255, AST 169, ALT 86, lipase 22,430, triglycerides 69. CT abdomen showed fat stranding and edema surrounding the pancreatic head and neck and first-third segments of the duodenum. Family denies any alcohol use. Patient will be admitted for further medical management. Past Medical History Past Medical History Migraines CENTRAL NERVOUS SYSTEM: Migraine Renal/: Benign prostatic enlarg. Past Surgical History Past Surgical History: No pertinent history Family History Family History Reviewed with patient family but denies significant medical history Social History Smoke: No ALCOHOL: none Drugs: None Current Problem List Problem List Problems Medical Problems: (1) Hypokalemia Status: Acute (2) Lactic acidosis Status: Acute (3) Pancreatitis Status: Acute (4) Paroxysmal atrial fibrillation Status: Acute Current Medications Current Medications Current Medications Morphine Sulfate (Morphine Sulfate) 4 mg 1X ONCE IVP Last administered on 12/04/21at 02:12; Start 12/04/21 at 02:00; Stop 12/04/21 at 02:01; Status DC Sodium Chloride 1,000 ml @ 1,000 mls/hr 1X ONCE IV Last administered on 12/04/21at 02:11; Start 12/04/21 at 02:00; Stop 12/04/21 at 02:59; Status DC Ondansetron HCl (Zofran) 4 mg 1X ONCE IVP Last administered on 12/04/21at 02:11; Start 12/04/21 at 02:00; Stop 12/04/21 at 02:01; Status DC Famotidine (Pepcid Vial) 20 mg 1X ONCE IVP Last administered on 12/04/21at 02:11; Start 12/04/21 at 02:00; Stop 12/04/21 at 02:01; Status DC Sodium Chloride 1,000 ml @ 1,000 mls/hr 1X ONCE IV Last administered on 12/04/21at 02:13; Start 12/04/21 at 02:15; Stop 12/04/21 at 03:14; Status DC Potassium Chloride/Water 100 ml @ 100 mls/hr 1X ONCE IV ; Start 12/04/21 at 03:00; Stop 12/04/21 at 03:59; Status UNV Potassium Chloride/Water 100 ml @ 100 mls/hr Q1H IV Last administered on 12/04/21at 05:28; Start 12/04/21 at 03:15; Stop 12/04/21 at 05:14; Status DC Iohexol (Omnipaque 300 Mg/ml) 60 ml 1X ONCE IV Last administered on 12/04/21at 03:34; Start 12/04/21 at 03:15; Stop 12/04/21 at 03:16; Status DC Info (CONTRAST GIVEN -- Rx MONITORING) 1 each PRN DAILY PRN MC SEE COMMENTS; Start 12/04/21 at 03:15; Stop 12/06/21 at 03:14 Ondansetron HCl (Zofran) 4 mg 1X ONCE IVP Last administered on 12/04/21at 04:12; Start 12/04/21 at 04:15; Stop 12/04/21 at 04:16; Status DC Ondansetron HCl (Zofran) 4 mg PRN Q8HRS PRN IVP NAUSEA/VOMITING; Start 12/04/21 at 04:15; Stop 12/06/21 at 04:14 Morphine Sulfate (Morphine Sulfate) 2 mg PRN Q2HR PRN IVP PAIN; Start 12/04/21 at 04:15; Stop 12/06/21 at 04:14 Prochlorperazine Edisylate (Compazine) 5 mg 1X ONCE IV Last administered on 12/04/21at 05:49; Start 12/04/21 at 05:00; Stop 12/04/21 at 05:01; Status DC Potassium Chloride/Dextrose/ Sod Cl 1,000 ml @ 125 mls/hr Q8H ONCE IV Last administered on 12/04/21at 08:34; Start 12/04/21 at 07:30; Stop 12/04/21 at 15:29 Active Scripts Active Imitrex (Sumatriptan Succinate) 100 Mg Tablet 1 Tab PO UD Tylenol (Acetaminophen) 325 Mg Tablet 1-2 Tab PO QID Zofran Odt (Ondansetron) 4 Mg Tab.rapdis 4 Mg PO BID PRN 7 Days Reported Cetirizine Hcl 10 Mg Tablet 1 Tab PO DAILY Combivent Respimat Inhal (Ipratropium/Albuterol Sulfate) 4 Gm Aer.w.adap 2 Inh IH QID Allergies Allergies: Coded Allergies: No Known Drug Allergies (Unverified , 07/22/17) ROS Review of System GENERAL: No history of weight change, weakness or fevers. SKIN: No bruising, hair changes or rashes. EYES: No blurred, double or loss of vision. NOSE AND THROAT: No history of nosebleeds, hoarseness or sore throat. HEART: Denies chest pain, denies palpitations. LUNGS: Denies cough, hemoptysis, wheezing or shortness of breath. GASTROINTESTINAL: Abdominal pain, nausea, vomiting. GENITOURINARY: Denies dysuria, frequency, urgency, hematuria. NEUROLOGIC: Denies history of numbness, tingling, tremor or weakness. PSYCHIATRIC: Denies anxiety, denies depression. ENDOCRINE: No history of heat or cold intolerance, polyuria or polydipsia. EXTREMITIES: Denies muscle weakness, joint pain, pain on walking or stiffness. Physical Exam Physical Exam General: Alert, Oriented X3, Cooperative, mild distress HEENT: PERRLA, EOMI Lungs: Clear to auscultation, Normal air movement Heart: RRR, no murmurs Cardiovascular: S1, S2. Tachycardic. Abdomen: Mild epigastric tenderness and guarding. Extremities: No clubbing, No cyanosis Skin: No rashes, No significant lesion Neuro: Normal speech, Normal tone, Sensation intact Psych/Mental Status: Mental status NL, Mood NL Vitals Vitals Vital Signs Date Time Temp Pulse Resp B/P (MAP) Pulse Ox O2 Delivery O2 Flow Rate FiO2 12/04/21 07:40 Room Air 12/04/21 07:00 98.1 118 19 136/88 (104) 92 3.0 98.1 Labs Labs Laboratory Tests Test 12/04/21 02:00 12/04/21 02:21 12/04/21 06:25 White Blood Count 15.3 x10^3/uL (4.0-11.0) Red Blood Count 5.28 x10^6/uL (4.30-5.70) Hemoglobin 14.9 g/dL (13.0-17.5) Hematocrit 46.3 % (39.0-53.0) Mean Corpuscular Volume 88 fL (79-100) Mean Corpuscular Hemoglobin 28 pg (25-35) Mean Corpuscular Hemoglobin Concent 32 g/dL (31-37) Red Cell Distribution Width 15.6 % (11.5-14.5) Platelet Count 150 x10^3/uL (140-400) Neutrophils (%) (Auto) 71 % (31-73) Lymphocytes (%) (Auto) 22 % (24-48) Monocytes (%) (Auto) 6 % (0-9) Eosinophils (%) (Auto) 1 % (0-3) Basophils (%) (Auto) 0 % (0-3) Neutrophils # (Auto) 10.8 x10^3/uL (1.8-7.7) Lymphocytes # (Auto) 3.4 x10^3/uL (1.0-4.8) Monocytes # (Auto) 1.0 x10^3/uL (0.0-1.1) Eosinophils # (Auto) 0.1 x10^3/uL (0.0-0.7) Basophils # (Auto) 0.1 x10^3/uL (0.0-0.2) Prothrombin Time 13.3 SEC (11.7-14.0) Prothromb Time International Ratio 1.0 (0.8-1.1) Activated Partial Thromboplast Time 29 SEC (24-38) Sodium Level 142 mmol/L (136-145) Potassium Level 2.9 mmol/L (3.5-5.1) Chloride Level 106 mmol/L (98-107) Carbon Dioxide Level 25 mmol/L (21-32) Anion Gap 11 (6-14) Blood Urea Nitrogen 17 mg/dL (8-26) Creatinine 1.4 mg/dL (0.7-1.3) Estimated GFR (Cockcroft-Gault) 47.9 BUN/Creatinine Ratio 12 (6-20) Glucose Level 255 mg/dL (70-99) Lactic Acid Level 4.4 mmol/L (0.4-2.0) 2.7 mmol/L (0.4-2.0) Calcium Level 8.9 mg/dL (8.5-10.1) Magnesium Level 2.2 mg/dL (1.8-2.4) Total Bilirubin 0.8 mg/dL (0.2-1.0) Aspartate Amino Transf (AST/SGOT) 109 U/L (15-37) Alanine Aminotransferase (ALT/SGPT) 86 U/L (16-63) Alkaline Phosphatase 85 U/L (46-116) Troponin I High Sensitivity 7 ng/L (4-75) SN-Uls-Q-Type Natriuretic Peptide 71 pg/mL (0-449) Total Protein 7.8 g/dL (6.4-8.2) Albumin 3.6 g/dL (3.4-5.0) Albumin/Globulin Ratio 0.9 (1.0-1.7) Lipase 06543 U/L (73-393) Influenza Type A Antigen Negative (NEGATIVE) Influenza Type B Antigen Negative (NEGATIVE) SARS-CoV-2 Antigen (Rapid) Negative (NEGATIVE) Urine Collection Type U cath Urine Color (Auto) Light yellow Urine Turbidity Clear Urine pH (Auto) 5.5 (<5.0-8.0) Urine Specific [place] 1.011 (1.000-1.030) Urine Protein (Auto) Negative mg/dL (Negative) Urine Glucose (Auto)(UA) 500 mg/dL (Negative) Urine Ketones (Auto) Negative mg/dL (Negative) Urine Blood (Auto) Negative (Negative) Urine Nitrite Negative (Negative) Urine Bilirubin (Auto) Negative (Negative) Urine Urobilinogen (Auto) Normal mg/dL (Normal) Urine Leukocyte Esterase (Auto) Negative (Negative) Urine RBC 3-5 /HPF (0-2) Urine WBC 1-4 /HPF (0-4) Urine Squamous Epithelial Cells Occ /LPF Urine Bacteria 0 /HPF (0-FEW) Urine Mucus Slight /LPF Triglycerides Level 69 mg/dL (0-150) Laboratory Tests Test 12/04/21 02:00 12/04/21 02:21 12/04/21 06:25 White Blood Count 15.3 x10^3/uL (4.0-11.0) Red Blood Count 5.28 x10^6/uL (4.30-5.70) Hemoglobin 14.9 g/dL (13.0-17.5) Hematocrit 46.3 % (39.0-53.0) Mean Corpuscular Volume 88 fL (79-100) Mean Corpuscular Hemoglobin 28 pg (25-35) Mean Corpuscular Hemoglobin Concent 32 g/dL (31-37) Red Cell Distribution Width 15.6 % (11.5-14.5) Platelet Count 150 x10^3/uL (140-400) Neutrophils (%) (Auto) 71 % (31-73) Lymphocytes (%) (Auto) 22 % (24-48) Monocytes (%) (Auto) 6 % (0-9) Eosinophils (%) (Auto) 1 % (0-3) Basophils (%) (Auto) 0 % (0-3) Neutrophils # (Auto) 10.8 x10^3/uL (1.8-7.7) Lymphocytes # (Auto) 3.4 x10^3/uL (1.0-4.8) Monocytes # (Auto) 1.0 x10^3/uL (0.0-1.1) Eosinophils # (Auto) 0.1 x10^3/uL (0.0-0.7) Basophils # (Auto) 0.1 x10^3/uL (0.0-0.2) Prothrombin Time 13.3 SEC (11.7-14.0) Prothromb Time International Ratio 1.0 (0.8-1.1) Activated Partial Thromboplast Time 29 SEC (24-38) Sodium Level 142 mmol/L (136-145) Potassium Level 2.9 mmol/L (3.5-5.1) Chloride Level 106 mmol/L (98-107) Carbon Dioxide Level 25 mmol/L (21-32) Anion Gap 11 (6-14) Blood Urea Nitrogen 17 mg/dL (8-26) Creatinine 1.4 mg/dL (0.7-1.3) Estimated GFR (Cockcroft-Gault) 47.9 BUN/Creatinine Ratio 12 (6-20) Glucose Level 255 mg/dL (70-99) Lactic Acid Level 4.4 mmol/L (0.4-2.0) 2.7 mmol/L (0.4-2.0) Calcium Level 8.9 mg/dL (8.5-10.1) Magnesium Level 2.2 mg/dL (1.8-2.4) Total Bilirubin 0.8 mg/dL (0.2-1.0) Aspartate Amino Transf (AST/SGOT) 109 U/L (15-37) Alanine Aminotransferase (ALT/SGPT) 86 U/L (16-63) Alkaline Phosphatase 85 U/L (46-116) Troponin I High Sensitivity 7 ng/L (4-75) VX-Hba-X-Type Natriuretic Peptide 71 pg/mL (0-449) Total Protein 7.8 g/dL (6.4-8.2) Albumin 3.6 g/dL (3.4-5.0) Albumin/Globulin Ratio 0.9 (1.0-1.7) Lipase 65153 U/L (73-393) Influenza Type A Antigen Negative (NEGATIVE) Influenza Type B Antigen Negative (NEGATIVE) SARS-CoV-2 Antigen (Rapid) Negative (NEGATIVE) Urine Collection Type U cath Urine Color (Auto) Light yellow Urine Turbidity Clear Urine pH (Auto) 5.5 (<5.0-8.0) Urine Specific [place] 1.011 (1.000-1.030) Urine Protein (Auto) Negative mg/dL (Negative) Urine Glucose (Auto)(UA) 500 mg/dL (Negative) Urine Ketones (Auto) Negative mg/dL (Negative) Urine Blood (Auto) Negative (Negative) Urine Nitrite Negative (Negative) Urine Bilirubin (Auto) Negative (Negative) Urine Urobilinogen (Auto) Normal mg/dL (Normal) Urine Leukocyte Esterase (Auto) Negative (Negative) Urine RBC 3-5 /HPF (0-2) Urine WBC 1-4 /HPF (0-4) Urine Squamous Epithelial Cells Occ /LPF Urine Bacteria 0 /HPF (0-FEW) Urine Mucus Slight /LPF Triglycerides Level 69 mg/dL (0-150) Images Images PATIENT: KEV PERAZA ACCOUNT: [id number] : 1935 LOCATION: ER AGE: 86 SEX: M EXAM STATUS: REG ER ORD. PHYSICIAN: ZHEN POND MD REASON: rlq pain;OMNI 300, 60ML PROCEDURE: CT ABD PELV W/ IV CONTRST ONLY EXAMINATION: CT ABDOMEN+PELVIS W CLINICAL HISTORY: Right lower quadrant abdominal pain.. TECHNIQUE: CT of the abdomen and pelvis was performed using standard technique, scanning from just above the dome of the diaphragm to the symphysis pubis following administration of intravenous contrast. CT Dose Reduction Employed: One or more of the following individualized dose reduction techniques were utilized for this examination: 1. Automated exposure control 2. Adjustment of the mA and/or kV according to patient size 3. Use of iterative reconstruction technique. COMPARISON: None FINDINGS: Motion degraded images of the lung bases demonstrate bibasilar interstitial and groundglass opacities. Fat stranding and edema surrounding the pancreatic head and neck and first-third segments of the duodenum. No evidence of pancreatic necrosis or organized peripancreatic collection. Mild ill-defined fluid along the left anterior pararenal space, likely reactive. Mildly distended gallbladder with circumferential hypodense wall thickening and/or pericholecystic fluid, possibly reactive. No visualized cholelithiasis. Several subcentimeter hypoenhancing lesions in the liver and left kidney, too small adequately characterize. Spleen, adrenal glands, and right kidney unremarkable. Mildly filled urinary bladder. Nonenlarged prostate. No dilated bowel. Appendix not definitively visualized. Mild arterial atherosclerotic calcification without aneurysm. Mild free fluid in the right paracolic gutter and dependent abdomen. Multilevel thoracolumbar degenerative changes. IMPRESSION: Fat stranding and edema surrounding the pancreatic head and neck and first-third segments of the duodenum. Differential includes acute pancreatitis/chronic pancreatitis versus duodenitis. Correlate with serum lipase levels. Suspected reactive changes in the gallbladder is described. VTE Prophylaxis Ordered VTE Prophylaxis Devices: No VTE Pharmacological Prophylaxi: Yes Assessment/Plan Assessment/Plan Pancreatitis Sepsis Lactic acidosis Hypokalemia Hyperglycemia Plan: Consultation placed to GI and general surgery No history of alcohol use and triglycerides 69. Abdominal ultrasound pending. We will administer continuous IV fluids and IV pain medication If no improvement in symptoms he will need NG tube for nutrition Hyperglycemia may be stress-induced. Will administer insulin orders for monitoring and subcu insulin as needed. FEN - NPO PPX - Heparin FULL CODE/surrogate decision maker is his son (Tc Read) Dispo - inpatient for above Justifications for Admission Other Justification JOANA JENSEN MD Dec 04, 2021 09:21
--- NOTE | 2021-12-04 09:58 | PDOC2 ---
GI CONSULT Date of Service: DATE: 12/04/21 TIME: 09:57 Reason For Consult: pancreatitis HPI: HPI: 86 y/o male admitted through ER, history from family at bedside - she says he is "old and forgetful," speaks French. In usual state of health til 10:30 last night when reported "stomach pain." No improvement w/ Tylenol, worsened, associated w/ vomiting. No similar symptoms in the last. No chronic GI issues except intermittent constipation controlled w/ Miralax. Denies reflux, dysphagia, diarrhea, hematochezia, melena, hematemesis, change in appetite, or weight loss. No previous EGD or colonoscopy. No GB, liver, pancreas, or PUD history. PMH: PMH: dementia, COPD, migraines, seasonal allergies, BPH FH: Family History: No pertinent hx Social History: Smoke: No ALCOHOL: none Drugs: None ROS: Obtained per family as in HPI. Vitals: Vitals: Vital Signs Date Time Temp Pulse Resp B/P (MAP) Pulse Ox O2 Delivery O2 Flow Rate FiO2 12/04/21 07:40 Room Air 12/04/21 07:00 98.1 118 19 136/88 (104) 92 3.0 98.1 Labs: Labs: Laboratory Tests Test 12/04/21 02:00 12/04/21 02:21 12/04/21 06:25 White Blood Count 15.3 x10^3/uL (4.0-11.0) Red Blood Count 5.28 x10^6/uL (4.30-5.70) Hemoglobin 14.9 g/dL (13.0-17.5) Hematocrit 46.3 % (39.0-53.0) Mean Corpuscular Volume 88 fL (79-100) Mean Corpuscular Hemoglobin 28 pg (25-35) Mean Corpuscular Hemoglobin Concent 32 g/dL (31-37) Red Cell Distribution Width 15.6 % (11.5-14.5) Platelet Count 150 x10^3/uL (140-400) Neutrophils (%) (Auto) 71 % (31-73) Lymphocytes (%) (Auto) 22 % (24-48) Monocytes (%) (Auto) 6 % (0-9) Eosinophils (%) (Auto) 1 % (0-3) Basophils (%) (Auto) 0 % (0-3) Neutrophils # (Auto) 10.8 x10^3/uL (1.8-7.7) Lymphocytes # (Auto) 3.4 x10^3/uL (1.0-4.8) Monocytes # (Auto) 1.0 x10^3/uL (0.0-1.1) Eosinophils # (Auto) 0.1 x10^3/uL (0.0-0.7) Basophils # (Auto) 0.1 x10^3/uL (0.0-0.2) Prothrombin Time 13.3 SEC (11.7-14.0) Prothromb Time International Ratio 1.0 (0.8-1.1) Activated Partial Thromboplast Time 29 SEC (24-38) Sodium Level 142 mmol/L (136-145) Potassium Level 2.9 mmol/L (3.5-5.1) 5.2 mmol/L (3.5-5.1) Chloride Level 106 mmol/L (98-107) Carbon Dioxide Level 25 mmol/L (21-32) Anion Gap 11 (6-14) Blood Urea Nitrogen 17 mg/dL (8-26) Creatinine 1.4 mg/dL (0.7-1.3) Estimated GFR (Cockcroft-Gault) 47.9 BUN/Creatinine Ratio 12 (6-20) Glucose Level 255 mg/dL (70-99) Lactic Acid Level 4.4 mmol/L (0.4-2.0) 2.7 mmol/L (0.4-2.0) Calcium Level 8.9 mg/dL (8.5-10.1) Magnesium Level 2.2 mg/dL (1.8-2.4) Total Bilirubin 0.8 mg/dL (0.2-1.0) Aspartate Amino Transf (AST/SGOT) 109 U/L (15-37) Alanine Aminotransferase (ALT/SGPT) 86 U/L (16-63) Alkaline Phosphatase 85 U/L (46-116) Troponin I High Sensitivity 7 ng/L (4-75) AJ-Stw-E-Type Natriuretic Peptide 71 pg/mL (0-449) Total Protein 7.8 g/dL (6.4-8.2) Albumin 3.6 g/dL (3.4-5.0) Albumin/Globulin Ratio 0.9 (1.0-1.7) Lipase 53085 U/L (73-393) Influenza Type A Antigen Negative (NEGATIVE) Influenza Type B Antigen Negative (NEGATIVE) SARS-CoV-2 Antigen (Rapid) Negative (NEGATIVE) Urine Collection Type U cath Urine Color (Auto) Light yellow Urine Turbidity Clear Urine pH (Auto) 5.5 (<5.0-8.0) Urine Specific [place] 1.011 (1.000-1.030) Urine Protein (Auto) Negative mg/dL (Negative) Urine Glucose (Auto)(UA) 500 mg/dL (Negative) Urine Ketones (Auto) Negative mg/dL (Negative) Urine Blood (Auto) Negative (Negative) Urine Nitrite Negative (Negative) Urine Bilirubin (Auto) Negative (Negative) Urine Urobilinogen (Auto) Normal mg/dL (Normal) Urine Leukocyte Esterase (Auto) Negative (Negative) Urine RBC 3-5 /HPF (0-2) Urine WBC 1-4 /HPF (0-4) Urine Squamous Epithelial Cells Occ /LPF Urine Bacteria 0 /HPF (0-FEW) Urine Mucus Slight /LPF Triglycerides Level 69 mg/dL (0-150) Allergies: Coded Allergies: No Known Drug Allergies (Unverified , 07/22/17) Medications: Current Medications Medications (Trade) Dose Ordered Sig/Ayleen Route PRN Reason Start Time Stop Time Status Last Admin Dose Admin Morphine Sulfate (Morphine Sulfate) 4 mg 1X ONCE IVP 12/04/21 02:00 12/04/21 02:01 DC 12/04/21 02:12 Sodium Chloride 1,000 ml @ 1,000 mls/hr 1X ONCE IV 12/04/21 02:00 12/04/21 02:59 DC 12/04/21 02:11 Ondansetron HCl (Zofran) 4 mg 1X ONCE IVP 12/04/21 02:00 12/04/21 02:01 DC 12/04/21 02:11 Famotidine (Pepcid Vial) 20 mg 1X ONCE IVP 12/04/21 02:00 12/04/21 02:01 DC 12/04/21 02:11 Sodium Chloride 1,000 ml @ 1,000 mls/hr 1X ONCE IV 12/04/21 02:15 12/04/21 03:14 DC 12/04/21 02:13 Potassium Chloride/Water 100 ml @ 100 mls/hr Q1H IV 12/04/21 03:15 12/04/21 05:14 DC 12/04/21 05:28 Iohexol (Omnipaque 300 Mg/ml) 60 ml 1X ONCE IV 12/04/21 03:15 12/04/21 03:16 DC 12/04/21 03:34 Ondansetron HCl (Zofran) 4 mg 1X ONCE IVP 12/04/21 04:15 12/04/21 04:16 DC 12/04/21 04:12 Prochlorperazine Edisylate (Compazine) 5 mg 1X ONCE IV 12/04/21 05:00 12/04/21 05:01 DC 12/04/21 05:49 Potassium Chloride/Dextrose/ Sod Cl 1,000 ml @ 125 mls/hr Q8H ONCE IV 12/04/21 07:30 12/04/21 15:29 12/04/21 08:34 Imaging: Imaging: CT A/P FINDINGS: Motion degraded images of the lung bases demonstrate bibasilar interstitial and groundglass opacities. Fat stranding and edema surrounding the pancreatic head and neck and first-third segments of the duodenum. No evidence of pancreatic necrosis or organized peripancreatic collection. Mild ill-defined fluid along the left anterior pararenal space, likely reactive. Mildly distended gallbladder with circumferential hypodense wall thickening and/or pericholecystic fluid, possibly reactive. No visualized cholelithiasis. Several subcentimeter hypoenhancing lesions in the liver and left kidney, too sm all adequately characterize. Spleen, adrenal glands, and right kidney unremarkable. Mildly filled urinary bladder. Nonenlarged prostate. No dilated bowel. Appendix not definitively visualized. Mild arterial atherosclerotic calcification without aneurysm. Mild free fluid in the right paracolic gutter and dependent abdomen. Multilevel thoracolumbar degenerative changes. IMPRESSION: Fat stranding and edema surrounding the pancreatic head and neck and first-third segments of the duodenum. Differential includes acute pancreatitis/chronic pancreatitis versus duodenitis. Correlate with serum lipase levels. Suspected reactive changes in the gallbladder is described. CXR IMPRESSION: Ill-defined hazy opacities in the bilateral mid to lower lung zones and nonspecific interstitial prominence, possibly related to edema and/or atypical infection. PE: GEN: NAD HEENT: Atraumatic, PERRL LUNGS: clear, NC 3L HEART: tachycardic ABD: quiet, periumbilical discomfort EXTREMITY: No edema SKIN: No rashes, no jaundice NEURO/PSYCH: A & O, cooperative A/P: A/P: Pancreatitis - unclear cause, no alcohol use Leukocytosis, lactic acidosis, hypokalemia, elevated AST and ALT Tachycardia CRC screen - none H/o constipation Rapid COVID negative -- Await triglycerides and US. NPO, IVF. Add IV PPI. SEAN SERRANO Dec 04, 2021 09:57
[2021-12-04] MEDS ORDERED: ACETAMINOPHEN 325 MG TABLET. PO PRN (10:00)
[2021-12-04] MEDS ORDERED: DEXTROSE 50% 25 GM / 50ML DISP.SYRIN. IV PRN (10:15)
[2021-12-04] MEDS ORDERED: IV DEXTROSE 5% 250 ML BAG. IV PRN (10:15)
--- NOTE | 2021-12-04 10:33 | RAD ---
EXAM: Abdomen sonogram. HISTORY: Pain. TECHNIQUE: Sonographic imaging of the abdomen was performed. COMPARISON: None. FINDINGS: The exam is limited due to bowel gas. The right kidney, common bile duct, pancreas, and inf erior vena cava are obscured. There is hepatic steatosis. No focal hepatic lesion is seen. There is c holelithiasis. There is gallbladder wall thickening. IMPRESSION: 1. Cholelithiasis with superimposed gallbladder wall thickening favoring cholecystitis. 2. Hepatic steatosis. Note is made that small hypodense lesions within the liver on the recent CT are not seen sonographically. 3. Limited exam due to bowel gas. Electronically signed by: Patricia Vila MD (12/04/2021 10:31 AM) [facility]
[2021-12-04] MEDS: IV NORMAL SALINE 1000ML BAG 1,000 ML IV SCH ×3 (10:52→23:16)
[2021-12-04] MEDS: PANTOPRAZOLE IV PUSH 40 MG VIAL. IVP SCH (10:52)
[2021-12-04] MEDS: HEPARIN for SUB-Q USE 5,000 UNIT/ML VIAL. SQ SCH ×2 (10:57→23:23)
[2021-12-04 11:00] VITALS: BP 130/82
[2021-12-04] MEDS: INSULIN LISPRO 300 UNITS/3 ML VIAL. SQ SCH ×2 (11:40→16:47)
[2021-12-04] MEDS: MORPHINE SULFATE 4 MG/ML INJ. IV PRN ×3 (13:28→23:16)
[2021-12-04 15:00] VITALS: BP 104/71
[2021-12-04 19:00] VITALS: BP 134/77
[2021-12-04 23:00] VITALS: BP 133/88
[2021-12-05 02:17] LABS: HEMOGLOBIN A1C 6.2 % (4.8-5.6)
[2021-12-05 03:00] VITALS: BP 122/87
[2021-12-05 07:00] VITALS: BP 122/74
[2021-12-05 07:36] LABS: BASO % 0 % (0-3); EOS % 0 % (0-3); HEMATOCRIT 43.8 % (39.0-53.0); HEMOGLOBIN 14.3 g/dL (13.0-17.5); LYMPH # 1.3 x10^3/uL (1.0-4.8); LYMPH % 13 % (24-48); MEAN CORPUSCULAR HEMOGLOBIN 28 pg (25-35); MEAN CORPUSCULAR HGB CONC 33 g/dL (31-37); MEAN CORPUSCULAR VOLUME 87 fL (79-100); MONO # 0.9 x10^3/uL (0.0-1.1); MONO % 9 % (0-9); NEUT # 7.8 x10^3/uL (1.8-7.7); NEUT % 78 % (31-73); PLATELET COUNT 111 x10^3/uL (140-400); RED BLOOD COUNT 5.06 x10^6/uL (4.30-5.70); RED CELL DISTRIBUTION WIDTH 15.8 % (11.5-14.5)
[2021-12-05] MEDS: INSULIN LISPRO 300 UNITS/3 ML VIAL. SQ SCH ×3 (08:00→17:00)
[2021-12-05 08:15] LABS: CALCIUM 6.6 mg/dL (8.5-10.1); CREATININE 1.1 mg/dL (0.7-1.3); GFR 63.3
[2021-12-05 08:16] LABS: ALBUMIN 2.6 g/dL (3.4-5.0); DIRECT BILIRUBIN 0.3 mg/dL (0.0-0.2); TOTAL BILIRUBIN 1.3 mg/dL (0.2-1.0); TOTAL PROTEIN 5.3 g/dL (6.4-8.2)
[2021-12-05] MEDS: IV NORMAL SALINE 1000ML BAG 1,000 ML IV SCH ×3 (08:46→20:38)
[2021-12-05] MEDS: PANTOPRAZOLE IV PUSH 40 MG VIAL. IVP SCH (08:46)
[2021-12-05] MEDS: HEPARIN for SUB-Q USE 5,000 UNIT/ML VIAL. SQ SCH ×2 (08:49→20:45)
--- NOTE | 2021-12-05 10:37 | PDOC ---
Date of Service: DATE: 12/05/21 TIME: 10:33 Subjective: Subjective: Family present to translate - pt feels better, says he's tired from being in bed and wants to shower, also asking why he can't eat. Objective: Vital Signs: Vital Signs Date Time Temp Pulse Resp B/P (MAP) Pulse Ox O2 Delivery O2 Flow Rate FiO2 12/05/21 07:15 Nasal Cannula 2.0 12/05/21 07:00 97.4 98 22 122/74 (90) 89 97.4 Labs: Laboratory Tests Test 12/04/21 11:38 12/04/21 16:40 12/04/21 20:53 12/05/21 06:15 Glucose (Fingerstick) 139 mg/dL 100 mg/dL 135 mg/dL White Blood Count 10.0 x10^3/uL Red Blood Count 5.06 x10^6/uL Hemoglobin 14.3 g/dL Hematocrit 43.8 % Mean Corpuscular Volume 87 fL Mean Corpuscular Hemoglobin 28 pg Mean Corpuscular Hemoglobin Concent 33 g/dL Red Cell Distribution Width 15.8 % Platelet Count 111 x10^3/uL Neutrophils (%) (Auto) 78 % Lymphocytes (%) (Auto) 13 % Monocytes (%) (Auto) 9 % Eosinophils (%) (Auto) 0 % Basophils (%) (Auto) 0 % Neutrophils # (Auto) 7.8 x10^3/uL Lymphocytes # (Auto) 1.3 x10^3/uL Monocytes # (Auto) 0.9 x10^3/uL Eosinophils # (Auto) 0.0 x10^3/uL Basophils # (Auto) 0.0 x10^3/uL Sodium Level 144 mmol/L Potassium Level 4.0 mmol/L Chloride Level 114 mmol/L Carbon Dioxide Level 20 mmol/L Anion Gap 10 Blood Urea Nitrogen 20 mg/dL Creatinine 1.1 mg/dL Estimated GFR (Cockcroft-Gault) 63.3 Glucose Level 133 mg/dL Calcium Level 6.6 mg/dL Total Bilirubin 1.3 mg/dL Direct Bilirubin 0.3 mg/dL Aspartate Amino Transf (AST/SGOT) 39 U/L Alanine Aminotransferase (ALT/SGPT) 42 U/L Alkaline Phosphatase 54 U/L Total Protein 5.3 g/dL Albumin 2.6 g/dL Lipase 2471 U/L Test 12/05/21 07:17 Glucose (Fingerstick) 154 mg/dL BLOOD CULTURE Preliminary NO GROWTH AFTER 1 DAY Imaging: Abd US 12/04 IMPRESSION: 1. Cholelithiasis with superimposed gallbladder wall thickening favoring cholecystitis. 2. Hepatic steatosis. Note is made that small hypodense lesions within the liver on the recent CT are not seen sonographically. 3. Limited exam due to bowel gas. PE: GEN: NAD LUNGS: clear, NC 2L HEART: RRR ABD: pretty quiet, epigastric tenderness, soft NEURO/PSYCH: awake and alert A/P: Pancreatitis - gallstones likely cause Rapid COVID negative -- Discussed family/pt's concerns with nurse. Labs improving, continue per surgery. Justicifation of Admission Dx: Justifications for Admission: Justification of Admission Dx: Yes SEAN SERRANO Dec 05, 2021 10:37
[2021-12-05 11:00] VITALS: BP 123/75
[2021-12-05] MEDS ORDERED: FUROSEMIDE 20 MG/2 ML VIAL. IVP ONE (11:45)
--- NOTE | 2021-12-05 11:45 | NUR ---
Pt. sating 89% on 4L NC. Upon auscultation, mild insp. crackles noted to ant. LLL. Dr. Miller notified. Telephone orders received.
--- NOTE | 2021-12-05 12:35 | PDOC ---
[employer] PROGRESS NOTE Date of Service DOS: DATE: 12/05/21 TIME: 12:32 Chief Complaint Chief Complaint Pancreatitis Sepsis Lactic acidosis Hypokalemia Hyperglycemia History of Present Illness History of Present Illness 12/05: Afebrile, currently breathing on 4 L nasal cannula. Some crackling noted on exam in the lung bases. Will administer Lasix 20 mg IV x1. Cholecystectomy prior to discharge, per general surgery. Vitals/I&O Vitals/I&O: Vital Signs Date Time Temp Pulse Resp B/P (MAP) Pulse Ox O2 Delivery O2 Flow Rate FiO2 12/05/21 11:00 98.9 105 22 123/75 (91) 89 Nasal Cannula 4.0 98.9 I & O 12/04/21 12/04/21 12/05/21 15:00 23:00 07:00 Intake Total 0 ml Output Total 380 ml 610 ml Balance -380 ml -610 ml 0 ml Physical Exam General: Alert, Cooperative, Other (frail) Heart: Normal S1, Normal S2, Other (tachy) Lungs: Crackles Abdomen: Soft, Other (thin, LUQ moderate ttp ) Extremities: No clubbing, No cyanosis Skin: No rashes, No breakdown Labs Labs: Laboratory Tests Test 12/04/21 16:40 12/04/21 20:53 12/05/21 06:15 12/05/21 07:17 Glucose (Fingerstick) 100 mg/dL (70-99) 135 mg/dL (70-99) 154 mg/dL (70-99) White Blood Count 10.0 x10^3/uL (4.0-11.0) Red Blood Count 5.06 x10^6/uL (4.30-5.70) Hemoglobin 14.3 g/dL (13.0-17.5) Hematocrit 43.8 % (39.0-53.0) Mean Corpuscular Volume 87 fL (79-100) Mean Corpuscular Hemoglobin 28 pg (25-35) Mean Corpuscular Hemoglobin Concent 33 g/dL (31-37) Red Cell Distribution Width 15.8 % (11.5-14.5) Platelet Count 111 x10^3/uL (140-400) Neutrophils (%) (Auto) 78 % (31-73) Lymphocytes (%) (Auto) 13 % (24-48) Monocytes (%) (Auto) 9 % (0-9) Eosinophils (%) (Auto) 0 % (0-3) Basophils (%) (Auto) 0 % (0-3) Neutrophils # (Auto) 7.8 x10^3/uL (1.8-7.7) Lymphocytes # (Auto) 1.3 x10^3/uL (1.0-4.8) Monocytes # (Auto) 0.9 x10^3/uL (0.0-1.1) Eosinophils # (Auto) 0.0 x10^3/uL (0.0-0.7) Basophils # (Auto) 0.0 x10^3/uL (0.0-0.2) Sodium Level 144 mmol/L (136-145) Potassium Level 4.0 mmol/L (3.5-5.1) Chloride Level 114 mmol/L (98-107) Carbon Dioxide Level 20 mmol/L (21-32) Anion Gap 10 (6-14) Blood Urea Nitrogen 20 mg/dL (8-26) Creatinine 1.1 mg/dL (0.7-1.3) Estimated GFR (Cockcroft-Gault) 63.3 Glucose Level 133 mg/dL (70-99) Calcium Level 6.6 mg/dL (8.5-10.1) Total Bilirubin 1.3 mg/dL (0.2-1.0) Direct Bilirubin 0.3 mg/dL (0.0-0.2) Aspartate Amino Transf (AST/SGOT) 39 U/L (15-37) Alanine Aminotransferase (ALT/SGPT) 42 U/L (16-63) Alkaline Phosphatase 54 U/L (46-116) Total Protein 5.3 g/dL (6.4-8.2) Albumin 2.6 g/dL (3.4-5.0) Lipase 2471 U/L (73-393) Test 12/05/21 11:45 Glucose (Fingerstick) 150 mg/dL (70-99) Assessment and Plan Assessmemt and Plan Problems Medical Problems: (1) Hypokalemia Status: Acute (2) Lactic acidosis Status: Acute (3) Pancreatitis Status: Acute (4) Paroxysmal atrial fibrillation Status: Acute Comment Review of Relevant I have reviewed the following items ayo (where applicable) has been applied. Medications: Current Medications Medications (Trade) Dose Ordered Sig/Ayleen Route PRN Reason Start Time Stop Time Status Last Admin Dose Admin Furosemide (Lasix) 20 mg 1X ONCE IVP 12/05/21 11:45 12/05/21 11:49 DC 12/05/21 11:59 Justifications for Admission Other Justification JOANA JENSEN MD Dec 05, 2021 12:35
--- NOTE | 2021-12-05 14:06 | PDOC ---
SURGICAL PROGRESS NOTE DATE: 12/05/21 TIME: 14:04 Subjective Pt reports feeling better, thirsty Vital Signs Vital Signs Date Time Temp Pulse Resp B/P (MAP) Pulse Ox O2 Delivery O2 Flow Rate FiO2 12/05/21 11:00 98.9 105 22 123/75 (91) 89 Nasal Cannula 4.0 98.9 I&O Intake and Output 12/05/21 07:00 Intake Total 0 ml Output Total 990 ml Balance -990 ml Intake Oral 0 ml Output Urine Total 990 ml General: Alert, Oriented X3, Cooperative, No acute distress Abdomen: Soft, No tenderness Labs Laboratory Tests Test 12/04/21 02:00 12/04/21 02:21 12/04/21 06:25 12/04/21 11:38 White Blood Count 15.3 x10^3/uL (4.0-11.0) Red Blood Count 5.28 x10^6/uL (4.30-5.70) Hemoglobin 14.9 g/dL (13.0-17.5) Hematocrit 46.3 % (39.0-53.0) Mean Corpuscular Volume 88 fL (79-100) Mean Corpuscular Hemoglobin 28 pg (25-35) Mean Corpuscular Hemoglobin Concent 32 g/dL (31-37) Red Cell Distribution Width 15.6 % (11.5-14.5) Platelet Count 150 x10^3/uL (140-400) Neutrophils (%) (Auto) 71 % (31-73) Lymphocytes (%) (Auto) 22 % (24-48) Monocytes (%) (Auto) 6 % (0-9) Eosinophils (%) (Auto) 1 % (0-3) Basophils (%) (Auto) 0 % (0-3) Neutrophils # (Auto) 10.8 x10^3/uL (1.8-7.7) Lymphocytes # (Auto) 3.4 x10^3/uL (1.0-4.8) Monocytes # (Auto) 1.0 x10^3/uL (0.0-1.1) Eosinophils # (Auto) 0.1 x10^3/uL (0.0-0.7) Basophils # (Auto) 0.1 x10^3/uL (0.0-0.2) Prothrombin Time 13.3 SEC (11.7-14.0) Prothromb Time International Ratio 1.0 (0.8-1.1) Activated Partial Thromboplast Time 29 SEC (24-38) Sodium Level 142 mmol/L (136-145) Potassium Level 2.9 mmol/L (3.5-5.1) 5.2 mmol/L (3.5-5.1) Chloride Level 106 mmol/L (98-107) Carbon Dioxide Level 25 mmol/L (21-32) Anion Gap 11 (6-14) Blood Urea Nitrogen 17 mg/dL (8-26) Creatinine 1.4 mg/dL (0.7-1.3) Estimated GFR (Cockcroft-Gault) 47.9 BUN/Creatinine Ratio 12 (6-20) Glucose Level 255 mg/dL (70-99) Lactic Acid Level 4.4 mmol/L (0.4-2.0) 2.7 mmol/L (0.4-2.0) Calcium Level 8.9 mg/dL (8.5-10.1) Magnesium Level 2.2 mg/dL (1.8-2.4) Total Bilirubin 0.8 mg/dL (0.2-1.0) Aspartate Amino Transf (AST/SGOT) 109 U/L (15-37) Alanine Aminotransferase (ALT/SGPT) 86 U/L (16-63) Alkaline Phosphatase 85 U/L (46-116) Troponin I High Sensitivity 7 ng/L (4-75) HL-Lup-O-Type Natriuretic Peptide 71 pg/mL (0-449) Total Protein 7.8 g/dL (6.4-8.2) Albumin 3.6 g/dL (3.4-5.0) Albumin/Globulin Ratio 0.9 (1.0-1.7) Lipase 94435 U/L (73-393) Influenza Type A Antigen Negative (NEGATIVE) Influenza Type B Antigen Negative (NEGATIVE) SARS-CoV-2 Antigen (Rapid) Negative (NEGATIVE) Urine Collection Type U cath Urine Color (Auto) Light yellow Urine Turbidity Clear Urine pH (Auto) 5.5 (<5.0-8.0) Urine Specific Ronks 1.011 (1.000-1.030) Urine Protein (Auto) Negative mg/dL (Negative) Urine Glucose (Auto)(UA) 500 mg/dL (Negative) Urine Ketones (Auto) Negative mg/dL (Negative) Urine Blood (Auto) Negative (Negative) Urine Nitrite Negative (Negative) Urine Bilirubin (Auto) Negative (Negative) Urine Urobilinogen (Auto) Normal mg/dL (Normal) Urine Leukocyte Esterase (Auto) Negative (Negative) Urine RBC 3-5 /HPF (0-2) Urine WBC 1-4 /HPF (0-4) Urine Squamous Epithelial Cells Occ /LPF Urine Bacteria 0 /HPF (0-FEW) Urine Mucus Slight /LPF Hemoglobin A1c 6.2 % (4.8-5.6) Triglycerides Level 69 mg/dL (0-150) Glucose (Fingerstick) 139 mg/dL (70-99) Test 12/04/21 16:40 12/04/21 20:53 12/05/21 06:15 12/05/21 07:17 Glucose (Fingerstick) 100 mg/dL (70-99) 135 mg/dL (70-99) 154 mg/dL (70-99) White Blood Count 10.0 x10^3/uL (4.0-11.0) Red Blood Count 5.06 x10^6/uL (4.30-5.70) Hemoglobin 14.3 g/dL (13.0-17.5) Hematocrit 43.8 % (39.0-53.0) Mean Corpuscular Volume 87 fL (79-100) Mean Corpuscular Hemoglobin 28 pg (25-35) Mean Corpuscular Hemoglobin Concent 33 g/dL (31-37) Red Cell Distribution Width 15.8 % (11.5-14.5) Platelet Count 111 x10^3/uL (140-400) Neutrophils (%) (Auto) 78 % (31-73) Lymphocytes (%) (Auto) 13 % (24-48) Monocytes (%) (Auto) 9 % (0-9) Eosinophils (%) (Auto) 0 % (0-3) Basophils (%) (Auto) 0 % (0-3) Neutrophils # (Auto) 7.8 x10^3/uL (1.8-7.7) Lymphocytes # (Auto) 1.3 x10^3/uL (1.0-4.8) Monocytes # (Auto) 0.9 x10^3/uL (0.0-1.1) Eosinophils # (Auto) 0.0 x10^3/uL (0.0-0.7) Basophils # (Auto) 0.0 x10^3/uL (0.0-0.2) Sodium Level 144 mmol/L (136-145) Potassium Level 4.0 mmol/L (3.5-5.1) Chloride Level 114 mmol/L (98-107) Carbon Dioxide Level 20 mmol/L (21-32) Anion Gap 10 (6-14) Blood Urea Nitrogen 20 mg/dL (8-26) Creatinine 1.1 mg/dL (0.7-1.3) Estimated GFR (Cockcroft-Gault) 63.3 Glucose Level 133 mg/dL (70-99) Calcium Level 6.6 mg/dL (8.5-10.1) Total Bilirubin 1.3 mg/dL (0.2-1.0) Direct Bilirubin 0.3 mg/dL (0.0-0.2) Aspartate Amino Transf (AST/SGOT) 39 U/L (15-37) Alanine Aminotransferase (ALT/SGPT) 42 U/L (16-63) Alkaline Phosphatase 54 U/L (46-116) Total Protein 5.3 g/dL (6.4-8.2) Albumin 2.6 g/dL (3.4-5.0) Lipase 2471 U/L (73-393) Test 12/05/21 11:45 Glucose (Fingerstick) 150 mg/dL (70-99) Laboratory Tests Test 12/04/21 16:40 12/04/21 20:53 12/05/21 06:15 12/05/21 07:17 Glucose (Fingerstick) 100 mg/dL (70-99) 135 mg/dL (70-99) 154 mg/dL (70-99) White Blood Count 10.0 x10^3/uL (4.0-11.0) Red Blood Count 5.06 x10^6/uL (4.30-5.70) Hemoglobin 14.3 g/dL (13.0-17.5) Hematocrit 43.8 % (39.0-53.0) Mean Corpuscular Volume 87 fL (79-100) Mean Corpuscular Hemoglobin 28 pg (25-35) Mean Corpuscular Hemoglobin Concent 33 g/dL (31-37) Red Cell Distribution Width 15.8 % (11.5-14.5) Platelet Count 111 x10^3/uL (140-400) Neutrophils (%) (Auto) 78 % (31-73) Lymphocytes (%) (Auto) 13 % (24-48) Monocytes (%) (Auto) 9 % (0-9) Eosinophils (%) (Auto) 0 % (0-3) Basophils (%) (Auto) 0 % (0-3) Neutrophils # (Auto) 7.8 x10^3/uL (1.8-7.7) Lymphocytes # (Auto) 1.3 x10^3/uL (1.0-4.8) Monocytes # (Auto) 0.9 x10^3/uL (0.0-1.1) Eosinophils # (Auto) 0.0 x10^3/uL (0.0-0.7) Basophils # (Auto) 0.0 x10^3/uL (0.0-0.2) Sodium Level 144 mmol/L (136-145) Potassium Level 4.0 mmol/L (3.5-5.1) Chloride Level 114 mmol/L (98-107) Carbon Dioxide Level 20 mmol/L (21-32) Anion Gap 10 (6-14) Blood Urea Nitrogen 20 mg/dL (8-26) Creatinine 1.1 mg/dL (0.7-1.3) Estimated GFR (Cockcroft-Gault) 63.3 Glucose Level 133 mg/dL (70-99) Calcium Level 6.6 mg/dL (8.5-10.1) Total Bilirubin 1.3 mg/dL (0.2-1.0) Direct Bilirubin 0.3 mg/dL (0.0-0.2) Aspartate Amino Transf (AST/SGOT) 39 U/L (15-37) Alanine Aminotransferase (ALT/SGPT) 42 U/L (16-63) Alkaline Phosphatase 54 U/L (46-116) Total Protein 5.3 g/dL (6.4-8.2) Albumin 2.6 g/dL (3.4-5.0) Lipase 2471 U/L (73-393) Test 12/05/21 11:45 Glucose (Fingerstick) 150 mg/dL (70-99) Problem List Problems Medical Problems: (1) Hypokalemia Status: Acute (2) Lactic acidosis Status: Acute (3) Pancreatitis Status: Acute (4) Paroxysmal atrial fibrillation Status: Acute Assessment/Plan gallstone pancreatitis cont supportive care, will try clears monitor clinical situation and labs plan cholecystectomy prior to d/c, possibly 4/3 Justicifation of Admission Dx: Justifications for Admission: Justification of Admission Dx: Yes TIERA BLANCHARD MD Dec 05, 2021 14:06
[2021-12-05 15:00] VITALS: BP 119/73
[2021-12-05 19:00] VITALS: BP 141/85
[2021-12-05 23:00] VITALS: BP 119/67
[2021-12-06 03:00] VITALS: BP 139/78
[2021-12-06] MEDS: IV NORMAL SALINE 1000ML BAG 1,000 ML IV SCH ×2 (04:43→13:00)
[2021-12-06 05:48] LABS: CALCIUM 6.7 mg/dL (8.5-10.1); CREATININE 1.1 mg/dL (0.7-1.3); GFR 63.3; POTASSIUM 3.8 mmol/L (3.5-5.1)
[2021-12-06 05:59] LABS: BASO % 0 % (0-3); EOS % 0 % (0-3); HEMATOCRIT 39.6 % (39.0-53.0); HEMOGLOBIN 13.1 g/dL (13.0-17.5); LYMPH # 1.1 x10^3/uL (1.0-4.8); LYMPH % 12 % (24-48); MEAN CORPUSCULAR HEMOGLOBIN 29 pg (25-35); MEAN CORPUSCULAR HGB CONC 33 g/dL (31-37); MEAN CORPUSCULAR VOLUME 87 fL (79-100); MONO % 11 % (0-9); NEUT % 76 % (31-73); PLATELET COUNT 95 x10^3/uL (140-400); RED BLOOD COUNT 4.55 x10^6/uL (4.30-5.70); RED CELL DISTRIBUTION WIDTH 15.9 % (11.5-14.5); WHITE BLOOD COUNT 9.2 x10^3/uL (4.0-11.0)
[2021-12-06 07:00] VITALS: BP 167/88
[2021-12-06] MEDS: INSULIN LISPRO 300 UNITS/3 ML VIAL. SQ SCH ×3 (08:00→17:00)
[2021-12-06] MEDS: PANTOPRAZOLE IV PUSH 40 MG VIAL. IVP SCH (08:47)
[2021-12-06] MEDS: HEPARIN for SUB-Q USE 5,000 UNIT/ML VIAL. SQ SCH ×2 (08:53→22:22)
--- NOTE | 2021-12-06 10:47 | PDOC ---
SURGICAL PROGRESS NOTE DATE: 12/06/21 TIME: 10:42 Subjective Pt with c/o abd pain and some soa, but off oxygen, pain somewhat improved Vital Signs Vital Signs Date Time Temp Pulse Resp B/P (MAP) Pulse Ox O2 Delivery O2 Flow Rate FiO2 12/06/21 08:00 Nasal Cannula 5.0 12/06/21 07:00 98.7 93 18 167/88 (114) 90 98.7 I&O Intake and Output 12/06/21 07:00 Intake Total 50 ml Output Total 500 ml Balance -450 ml Intake Oral 50 ml Output Urine Total 500 ml General: Alert, Oriented X3, Cooperative, mild distress Abdomen: Soft, Other (min TTP epigastric) Labs Laboratory Tests Test 12/04/21 11:38 12/04/21 16:40 12/04/21 20:53 12/05/21 06:15 Glucose (Fingerstick) 139 mg/dL (70-99) 100 mg/dL (70-99) 135 mg/dL (70-99) White Blood Count 10.0 x10^3/uL (4.0-11.0) Red Blood Count 5.06 x10^6/uL (4.30-5.70) Hemoglobin 14.3 g/dL (13.0-17.5) Hematocrit 43.8 % (39.0-53.0) Mean Corpuscular Volume 87 fL (79-100) Mean Corpuscular Hemoglobin 28 pg (25-35) Mean Corpuscular Hemoglobin Concent 33 g/dL (31-37) Red Cell Distribution Width 15.8 % (11.5-14.5) Platelet Count 111 x10^3/uL (140-400) Neutrophils (%) (Auto) 78 % (31-73) Lymphocytes (%) (Auto) 13 % (24-48) Monocytes (%) (Auto) 9 % (0-9) Eosinophils (%) (Auto) 0 % (0-3) Basophils (%) (Auto) 0 % (0-3) Neutrophils # (Auto) 7.8 x10^3/uL (1.8-7.7) Lymphocytes # (Auto) 1.3 x10^3/uL (1.0-4.8) Monocytes # (Auto) 0.9 x10^3/uL (0.0-1.1) Eosinophils # (Auto) 0.0 x10^3/uL (0.0-0.7) Basophils # (Auto) 0.0 x10^3/uL (0.0-0.2) Sodium Level 144 mmol/L (136-145) Potassium Level 4.0 mmol/L (3.5-5.1) Chloride Level 114 mmol/L (98-107) Carbon Dioxide Level 20 mmol/L (21-32) Anion Gap 10 (6-14) Blood Urea Nitrogen 20 mg/dL (8-26) Creatinine 1.1 mg/dL (0.7-1.3) Estimated GFR (Cockcroft-Gault) 63.3 Glucose Level 133 mg/dL (70-99) Calcium Level 6.6 mg/dL (8.5-10.1) Total Bilirubin 1.3 mg/dL (0.2-1.0) Direct Bilirubin 0.3 mg/dL (0.0-0.2) Aspartate Amino Transf (AST/SGOT) 39 U/L (15-37) Alanine Aminotransferase (ALT/SGPT) 42 U/L (16-63) Alkaline Phosphatase 54 U/L (46-116) Total Protein 5.3 g/dL (6.4-8.2) Albumin 2.6 g/dL (3.4-5.0) Lipase 2471 U/L (73-393) Test 12/05/21 07:17 12/05/21 11:45 12/05/21 16:34 12/05/21 20:41 Glucose (Fingerstick) 154 mg/dL (70-99) 150 mg/dL (70-99) 148 mg/dL (70-99) 150 mg/dL (70-99) Test 12/06/21 04:40 12/06/21 07:32 White Blood Count 9.2 x10^3/uL (4.0-11.0) Red Blood Count 4.55 x10^6/uL (4.30-5.70) Hemoglobin 13.1 g/dL (13.0-17.5) Hematocrit 39.6 % (39.0-53.0) Mean Corpuscular Volume 87 fL (79-100) Mean Corpuscular Hemoglobin 29 pg (25-35) Mean Corpuscular Hemoglobin Concent 33 g/dL (31-37) Red Cell Distribution Width 15.9 % (11.5-14.5) Platelet Count 95 x10^3/uL (140-400) Neutrophils (%) (Auto) 76 % (31-73) Lymphocytes (%) (Auto) 12 % (24-48) Monocytes (%) (Auto) 11 % (0-9) Eosinophils (%) (Auto) 0 % (0-3) Basophils (%) (Auto) 0 % (0-3) Neutrophils # (Auto) 7.0 x10^3/uL (1.8-7.7) Lymphocytes # (Auto) 1.1 x10^3/uL (1.0-4.8) Monocytes # (Auto) 1.0 x10^3/uL (0.0-1.1) Eosinophils # (Auto) 0.0 x10^3/uL (0.0-0.7) Basophils # (Auto) 0.0 x10^3/uL (0.0-0.2) Sodium Level 139 mmol/L (136-145) Potassium Level 3.8 mmol/L (3.5-5.1) Chloride Level 108 mmol/L (98-107) Carbon Dioxide Level 24 mmol/L (21-32) Anion Gap 7 (6-14) Blood Urea Nitrogen 22 mg/dL (8-26) Creatinine 1.1 mg/dL (0.7-1.3) Estimated GFR (Cockcroft-Gault) 63.3 Glucose Level 120 mg/dL (70-99) Calcium Level 6.7 mg/dL (8.5-10.1) Lipase 463 U/L (73-393) Glucose (Fingerstick) 114 mg/dL (70-99) Laboratory Tests Test 12/05/21 11:45 12/05/21 16:34 12/05/21 20:41 12/06/21 04:40 Glucose (Fingerstick) 150 mg/dL (70-99) 148 mg/dL (70-99) 150 mg/dL (70-99) White Blood Count 9.2 x10^3/uL (4.0-11.0) Red Blood Count 4.55 x10^6/uL (4.30-5.70) Hemoglobin 13.1 g/dL (13.0-17.5) Hematocrit 39.6 % (39.0-53.0) Mean Corpuscular Volume 87 fL (79-100) Mean Corpuscular Hemoglobin 29 pg (25-35) Mean Corpuscular Hemoglobin Concent 33 g/dL (31-37) Red Cell Distribution Width 15.9 % (11.5-14.5) Platelet Count 95 x10^3/uL (140-400) Neutrophils (%) (Auto) 76 % (31-73) Lymphocytes (%) (Auto) 12 % (24-48) Monocytes (%) (Auto) 11 % (0-9) Eosinophils (%) (Auto) 0 % (0-3) Basophils (%) (Auto) 0 % (0-3) Neutrophils # (Auto) 7.0 x10^3/uL (1.8-7.7) Lymphocytes # (Auto) 1.1 x10^3/uL (1.0-4.8) Monocytes # (Auto) 1.0 x10^3/uL (0.0-1.1) Eosinophils # (Auto) 0.0 x10^3/uL (0.0-0.7) Basophils # (Auto) 0.0 x10^3/uL (0.0-0.2) Sodium Level 139 mmol/L (136-145) Potassium Level 3.8 mmol/L (3.5-5.1) Chloride Level 108 mmol/L (98-107) Carbon Dioxide Level 24 mmol/L (21-32) Anion Gap 7 (6-14) Blood Urea Nitrogen 22 mg/dL (8-26) Creatinine 1.1 mg/dL (0.7-1.3) Estimated GFR (Cockcroft-Gault) 63.3 Glucose Level 120 mg/dL (70-99) Calcium Level 6.7 mg/dL (8.5-10.1) Lipase 463 U/L (73-393) Test 12/06/21 07:32 Glucose (Fingerstick) 114 mg/dL (70-99) Problem List Problems Medical Problems: (1) Hypokalemia Status: Acute (2) Lactic acidosis Status: Acute (3) Pancreatitis Status: Acute (4) Paroxysmal atrial fibrillation Status: Acute Assessment/Plan gallstone pancreatitis plan laparoscopic versus open cholecystectomy with cholangiogram in AM. Pt at somewhat increased risks secondary to age and comorbidities d/w pt and pt's family. Justicifation of Admission Dx: Justifications for Admission: Justification of Admission Dx: Yes TIERA BLANCHARD MD Dec 06, 2021 10:47
[2021-12-06 11:00] VITALS: BP 147/79
--- NOTE | 2021-12-06 12:11 | PDOC ---
[employer] PROGRESS NOTE Date of Service DOS: DATE: 12/06/21 TIME: 12:06 Chief Complaint Chief Complaint Pancreatitis Sepsis Lactic acidosis Hypokalemia Hyperglycemia History of Present Illness History of Present Illness 12/05: Afebrile, currently breathing on 4 L nasal cannula. Some crackling noted on exam in the lung bases. Will administer Lasix 20 mg IV x1. Cholecystectomy prior to discharge, per general surgery. 12/06: Patient evaluated with family at bedside. He notes some improvement in pain. Lipase improving; he may advance his diet to clears. Currently breathing on 5 L nasal cannula; will give Lasix 20 mg x 1. Scheduled for lap saundra t omorrow morning. Vitals/I&O Vitals/I&O: Vital Signs Date Time Temp Pulse Resp B/P (MAP) Pulse Ox O2 Delivery O2 Flow Rate FiO2 12/06/21 11:00 98.6 88 20 147/79 (101) 94 Nasal Cannula 5.0 98.6 I & O 12/05/21 12/05/21 12/06/21 15:00 23:00 07:00 Intake Total 50 ml 0 ml Output Total 500 ml Balance -500 ml 50 ml 0 ml Physical Exam General: Alert, Oriented X3, Cooperative, No acute distress Heart: Normal S1, Normal S2, Other (tachy) Lungs: Crackles Abdomen: Soft, Other (min TTP epigastric) Extremities: No clubbing, No cyanosis Skin: No rashes, No breakdown Labs Labs: Laboratory Tests Test 12/05/21 16:34 12/05/21 20:41 12/06/21 04:40 12/06/21 07:32 Glucose (Fingerstick) 148 mg/dL (70-99) 150 mg/dL (70-99) 114 mg/dL (70-99) White Blood Count 9.2 x10^3/uL (4.0-11.0) Red Blood Count 4.55 x10^6/uL (4.30-5.70) Hemoglobin 13.1 g/dL (13.0-17.5) Hematocrit 39.6 % (39.0-53.0) Mean Corpuscular Volume 87 fL (79-100) Mean Corpuscular Hemoglobin 29 pg (25-35) Mean Corpuscular Hemoglobin Concent 33 g/dL (31-37) Red Cell Distribution Width 15.9 % (11.5-14.5) Platelet Count 95 x10^3/uL (140-400) Neutrophils (%) (Auto) 76 % (31-73) Lymphocytes (%) (Auto) 12 % (24-48) Monocytes (%) (Auto) 11 % (0-9) Eosinophils (%) (Auto) 0 % (0-3) Basophils (%) (Auto) 0 % (0-3) Neutrophils # (Auto) 7.0 x10^3/uL (1.8-7.7) Lymphocytes # (Auto) 1.1 x10^3/uL (1.0-4.8) Monocytes # (Auto) 1.0 x10^3/uL (0.0-1.1) Eosinophils # (Auto) 0.0 x10^3/uL (0.0-0.7) Basophils # (Auto) 0.0 x10^3/uL (0.0-0.2) Sodium Level 139 mmol/L (136-145) Potassium Level 3.8 mmol/L (3.5-5.1) Chloride Level 108 mmol/L (98-107) Carbon Dioxide Level 24 mmol/L (21-32) Anion Gap 7 (6-14) Blood Urea Nitrogen 22 mg/dL (8-26) Creatinine 1.1 mg/dL (0.7-1.3) Estimated GFR (Cockcroft-Gault) 63.3 Glucose Level 120 mg/dL (70-99) Calcium Level 6.7 mg/dL (8.5-10.1) Lipase 463 U/L (73-393) Test 12/06/21 11:09 Glucose (Fingerstick) 142 mg/dL (70-99) Assessment and Plan Assessmemt and Plan Problems Medical Problems: (1) Hypokalemia Status: Acute (2) Lactic acidosis Status: Acute (3) Pancreatitis Status: Acute (4) Paroxysmal atrial fibrillation Status: Acute Comment Review of Relevant I have reviewed the following items ayo (where applicable) has been applied. Medications: Current Medications Medications (Trade) Dose Ordered Sig/Ayleen Route PRN Reason Start Time Stop Time Status Last Admin Dose Admin Sodium Chloride 1,000 ml @ 125 mls/hr Q8H IV 12/05/21 12:45 12/06/21 04:43 Justifications for Admission Other Justification JENSEN,JOANA A MD Dec 06, 2021 12:11
[2021-12-06] MEDS ORDERED: FUROSEMIDE 20 MG/2 ML VIAL. IVP ONE (12:30)
[2021-12-06 14:56] VITALS: BP 166/83
[2021-12-06 19:00] VITALS: BP 140/80
[2021-12-06] MEDS: MORPHINE SULFATE 4 MG/ML INJ. IV PRN (19:37)
[2021-12-06 23:00] VITALS: BP 134/60
[2021-12-07] VITALS (11 sets, daily range): BP systolic 105–159; BP diastolic 65–90
[2021-12-07] MEDS: IV NORMAL SALINE 1000ML BAG 1,000 ML IV SCH ×2 (02:15→17:37)
[2021-12-07] MEDS ORDERED: BUPIVACAINE-EPI 0.5% 30 ML VIAL KIT. ONE (07:06)
[2021-12-07] MEDS ORDERED: SURGICEL HEMOSTAT 4X8 EACH. ONE (07:06)
[2021-12-07] MEDS ORDERED: IOHEXOL 300 MG/ML 50 ML VIAL. ONE (07:06)
[2021-12-07] MEDS ORDERED: BISACODYL 10 MG SUPP.RECT. ONE (07:06)
[2021-12-07] MEDS ORDERED: ONDANSETRON PF 4 MG/2 ML VIAL. ONE (07:20)
[2021-12-07] MEDS ORDERED: fentaNYL PF VIAL 100 MCG/2 ML VIAL ONE ×2 (07:20→11:21)
[2021-12-07] MEDS ORDERED: PROPOFOL 10 MG/ML (20ML) VIAL. IV ONE (07:20)
[2021-12-07] MEDS ORDERED: LIDOCAINE 2% PF 5 ML VIAL. ONE (07:20)
[2021-12-07] MEDS ORDERED: ROCURONIUM 50 MG/5 ML VIAL. ONE (07:20)
[2021-12-07 07:41] LABS: BASO % 0 % (0-3); EOS # 0.1 x10^3/uL (0.0-0.7); EOS % 1 % (0-3); HEMATOCRIT 36.9 % (39.0-53.0); HEMOGLOBIN 12.2 g/dL (13.0-17.5); LYMPH # 0.9 x10^3/uL (1.0-4.8); LYMPH % 12 % (24-48); MEAN CORPUSCULAR HEMOGLOBIN 29 pg (25-35); MEAN CORPUSCULAR HGB CONC 33 g/dL (31-37); MEAN CORPUSCULAR VOLUME 86 fL (79-100); MONO # 1.1 x10^3/uL (0.0-1.1); MONO % 14 % (0-9); NEUT # 5.6 x10^3/uL (1.8-7.7); NEUT % 73 % (31-73); PLATELET COUNT 104 x10^3/uL (140-400); RED BLOOD COUNT 4.28 x10^6/uL (4.30-5.70); RED CELL DISTRIBUTION WIDTH 15.9 % (11.5-14.5); WHITE BLOOD COUNT 7.7 x10^3/uL (4.0-11.0)
[2021-12-07 07:53] LABS: CALCIUM 6.6 mg/dL (8.5-10.1); CREATININE 0.9 mg/dL (0.7-1.3); GFR 79.8; POTASSIUM 3.2 mmol/L (3.5-5.1)
[2021-12-07] MEDS ORDERED: MORPHINE SULFATE 2 MG/ML INJ. IVP PRN (08:00)
[2021-12-07] MEDS ORDERED: HYDROmorphone 2 MG/ML INJ. IVP PRN (08:00)
[2021-12-07] MEDS ORDERED: IV RINGERS,LACTATED 1000ML 1,000 ML IV SCH (08:00)
[2021-12-07] MEDS ORDERED: fentaNYL PF VIAL 100 MCG/2 ML VIAL IVP PRN (08:00)
[2021-12-07] MEDS ORDERED: ceFAZolin SODIUM IV Push 1 GM VIAL. IVP SCH (08:00)
[2021-12-07] MEDS: INSULIN LISPRO 300 UNITS/3 ML VIAL. SQ SCH ×3 (08:00→17:00)
[2021-12-07] MEDS ORDERED: PROCHLORPERAZINE 10 MG/2 ML VIAL. IVP PRN (08:00)
[2021-12-07] MEDS: HEPARIN 1,000 UNIT in IV NORMAL SALINE 1,000 ML for SURG PERIOP IRR ONE ×2 (08:17→09:14)
--- NOTE | 2021-12-07 08:35 | PDOC ---
SURGICAL PROGRESS NOTE DATE: 12/07/21 TIME: 08:34 Subjective Pre-Op Note 86 yo M with gallstone pancreatitis. TO OR for laparoscopic versus open cholecystectomy with cholangiogram. R/R/B/A d/w pt and pt's supportive family. Risks, including, but not limited to: bleeding, infection, damage to surrounding structures, risk of anesthesia, risk of open. They appear to understand, their questions are answered and they elect to proceed. Vital Signs Vital Signs Date Time Temp Pulse Resp B/P (MAP) Pulse Ox O2 Delivery O2 Flow Rate FiO2 12/07/21 07:00 97.7 98 20 152/67 (95) 90 Nasal Cannula 5.0 97.7 I&O Intake and Output 12/07/21 07:00 Intake Total 360 ml Balance 360 ml Intake Oral 360 ml Labs Laboratory Tests Test 12/05/21 11:45 12/05/21 16:34 12/05/21 20:41 12/06/21 04:40 Glucose (Fingerstick) 150 mg/dL (70-99) 148 mg/dL (70-99) 150 mg/dL (70-99) White Blood Count 9.2 x10^3/uL (4.0-11.0) Red Blood Count 4.55 x10^6/uL (4.30-5.70) Hemoglobin 13.1 g/dL (13.0-17.5) Hematocrit 39.6 % (39.0-53.0) Mean Corpuscular Volume 87 fL (79-100) Mean Corpuscular Hemoglobin 29 pg (25-35) Mean Corpuscular Hemoglobin Concent 33 g/dL (31-37) Red Cell Distribution Width 15.9 % (11.5-14.5) Platelet Count 95 x10^3/uL (140-400) Neutrophils (%) (Auto) 76 % (31-73) Lymphocytes (%) (Auto) 12 % (24-48) Monocytes (%) (Auto) 11 % (0-9) Eosinophils (%) (Auto) 0 % (0-3) Basophils (%) (Auto) 0 % (0-3) Neutrophils # (Auto) 7.0 x10^3/uL (1.8-7.7) Lymphocytes # (Auto) 1.1 x10^3/uL (1.0-4.8) Monocytes # (Auto) 1.0 x10^3/uL (0.0-1.1) Eosinophils # (Auto) 0.0 x10^3/uL (0.0-0.7) Basophils # (Auto) 0.0 x10^3/uL (0.0-0.2) Sodium Level 139 mmol/L (136-145) Potassium Level 3.8 mmol/L (3.5-5.1) Chloride Level 108 mmol/L (98-107) Carbon Dioxide Level 24 mmol/L (21-32) Anion Gap 7 (6-14) Blood Urea Nitrogen 22 mg/dL (8-26) Creatinine 1.1 mg/dL (0.7-1.3) Estimated GFR (Cockcroft-Gault) 63.3 Glucose Level 120 mg/dL (70-99) Calcium Level 6.7 mg/dL (8.5-10.1) Lipase 463 U/L (73-393) Test 12/06/21 07:32 12/06/21 11:09 12/06/21 16:04 12/06/21 20:38 Glucose (Fingerstick) 114 mg/dL (70-99) 142 mg/dL (70-99) 145 mg/dL (70-99) 145 mg/dL (70-99) Test 12/07/21 06:00 12/07/21 07:01 White Blood Count 7.7 x10^3/uL (4.0-11.0) Red Blood Count 4.28 x10^6/uL (4.30-5.70) Hemoglobin 12.2 g/dL (13.0-17.5) Hematocrit 36.9 % (39.0-53.0) Mean Corpuscular Volume 86 fL (79-100) Mean Corpuscular Hemoglobin 29 pg (25-35) Mean Corpuscular Hemoglobin Concent 33 g/dL (31-37) Red Cell Distribution Width 15.9 % (11.5-14.5) Platelet Count 104 x10^3/uL (140-400) Neutrophils (%) (Auto) 73 % (31-73) Lymphocytes (%) (Auto) 12 % (24-48) Monocytes (%) (Auto) 14 % (0-9) Eosinophils (%) (Auto) 1 % (0-3) Basophils (%) (Auto) 0 % (0-3) Neutrophils # (Auto) 5.6 x10^3/uL (1.8-7.7) Lymphocytes # (Auto) 0.9 x10^3/uL (1.0-4.8) Monocytes # (Auto) 1.1 x10^3/uL (0.0-1.1) Eosinophils # (Auto) 0.1 x10^3/uL (0.0-0.7) Basophils # (Auto) 0.0 x10^3/uL (0.0-0.2) Sodium Level 141 mmol/L (136-145) Potassium Level 3.2 mmol/L (3.5-5.1) Chloride Level 106 mmol/L (98-107) Carbon Dioxide Level 23 mmol/L (21-32) Anion Gap 12 (6-14) Blood Urea Nitrogen 20 mg/dL (8-26) Creatinine 0.9 mg/dL (0.7-1.3) Estimated GFR (Cockcroft-Gault) 79.8 Glucose Level 108 mg/dL (70-99) Calcium Level 6.6 mg/dL (8.5-10.1) Glucose (Fingerstick) 115 mg/dL (70-99) Laboratory Tests Test 12/06/21 11:09 12/06/21 16:04 12/06/21 20:38 12/07/21 06:00 Glucose (Fingerstick) 142 mg/dL (70-99) 145 mg/dL (70-99) 145 mg/dL (70-99) White Blood Count 7.7 x10^3/uL (4.0-11.0) Red Blood Count 4.28 x10^6/uL (4.30-5.70) Hemoglobin 12.2 g/dL (13.0-17.5) Hematocrit 36.9 % (39.0-53.0) Mean Corpuscular Volume 86 fL (79-100) Mean Corpuscular Hemoglobin 29 pg (25-35) Mean Corpuscular Hemoglobin Concent 33 g/dL (31-37) Red Cell Distribution Width 15.9 % (11.5-14.5) Platelet Count 104 x10^3/uL (140-400) Neutrophils (%) (Auto) 73 % (31-73) Lymphocytes (%) (Auto) 12 % (24-48) Monocytes (%) (Auto) 14 % (0-9) Eosinophils (%) (Auto) 1 % (0-3) Basophils (%) (Auto) 0 % (0-3) Neutrophils # (Auto) 5.6 x10^3/uL (1.8-7.7) Lymphocytes # (Auto) 0.9 x10^3/uL (1.0-4.8) Monocytes # (Auto) 1.1 x10^3/uL (0.0-1.1) Eosinophils # (Auto) 0.1 x10^3/uL (0.0-0.7) Basophils # (Auto) 0.0 x10^3/uL (0.0-0.2) Sodium Level 141 mmol/L (136-145) Potassium Level 3.2 mmol/L (3.5-5.1) Chloride Level 106 mmol/L (98-107) Carbon Dioxide Level 23 mmol/L (21-32) Anion Gap 12 (6-14) Blood Urea Nitrogen 20 mg/dL (8-26) Creatinine 0.9 mg/dL (0.7-1.3) Estimated GFR (Cockcroft-Gault) 79.8 Glucose Level 108 mg/dL (70-99) Calcium Level 6.6 mg/dL (8.5-10.1) Test 12/07/21 07:01 Glucose (Fingerstick) 115 mg/dL (70-99) Problem List Problems Medical Problems: (1) Hypokalemia Status: Acute (2) Lactic acidosis Status: Acute (3) Pancreatitis Status: Acute (4) Paroxysmal atrial fibrillation Status: Acute Justicifation of Admission Dx: Justifications for Admission: Justification of Admission Dx: Yes TIERA BLANCHARD MD Dec 07, 2021 08:35
[2021-12-07] MEDS ORDERED: PHENYLEPHRINE in 0.9% NACL PF 1 MG/10 ML SYRINGE. IV ONE (08:52)
[2021-12-07 08:56] LABS: % ATYL 2 % (0-0); % BANDS 16 % (0-9); % EOS 1 % (0-5); % LYMPHS 13 % (24-48); % MONOS 10 % (0-10); % SEGS 58 % (35-66); PLT ESTIMATE DECREASED (ADEQUATE)
[2021-12-07] MEDS: HEPARIN for SUB-Q USE 5,000 UNIT/ML VIAL. SQ SCH ×2 (09:00→21:00)
[2021-12-07] MEDS ORDERED: ceFAZolin SODIUM IV Push 1 GM VIAL. IVP ONE (09:02)
[2021-12-07] MEDS ORDERED: DEXAMETHASONE SOD PHOS 4 MG/ML VIAL ONE (09:24)
[2021-12-07] MEDS ORDERED: GLYCOPYRROLATE 1 MG/5 ML VIAL. ONE (09:42)
[2021-12-07] MEDS ORDERED: NEOSTIGMINE METHYLSULFATE 5 MG/5 ML SYRINGE. ONE (09:43)
--- NOTE | 2021-12-07 10:07 | RAD ---
PROCEDURE: Intraoperative cholangiogram 12/07/2021 10:04 AM. INDICATION: Cholecystectomy, cholecystitis. FLUOROSCOPY TIME: 21 seconds. IMAGE COUNT: 4. FINDINGS: Images show contrast injection into the biliary tree. This is normal in caliber without saad arent filling defect. Drainage is seen into the duodenum. IMPRESSION: No apparent abnormality. Electronically signed by: Patrick Du Jr., MD (12/07/2021 10:04 AM) [id number]
--- NOTE | 2021-12-07 10:29 | PDOC4 ---
OPERATIVE NOTE Date: Date: Dec 07, 2021 Pre-Op Diagnosis: Gallstone pancreatitis Post-Op Diagnosis: same, cholecystitis Procedure Performed: laparoscopic cholecystectomy with cholangiogram Surgeon: John Blanchard Anesthesia Type: GETA plus local Blood Loss: 50 Specimans Obtained: gallbladder Findings: severe cholecystitis with gangrenous changes and suspected gallbladder perforation posteriorly, normal liver and grams, evidence of pancreatitis with multiple small areas of saponification Complications: none Operative Note: After obtaining informed consent, patient was taken to OR, induced under GETA and prepped in the usual fashion. 5 mm ports placed umbilical and RUQ, 12 port placed epigastric, all under laparoscopic guidance. Abdominal cavity was explored and noted as above. Gallbladder taken off fossa in dome down fashion. Cystic artery ligated with clips. Cholangiogram obtained via cystic duct and was normal. Cystic duct controlled with hemolok and clips. Gallbladder placed in bag, delivered and sent to pathology. Copious irrigation. No evidence of bleeding or other pathology. Ports removed without bleeding. Fascia repaired with 0 vicryl. Skin repaired with 4 0 monocryl. Dressing placed. Patient tolerated procedure well and sent to PACU in stable condition. All counts correct. Wound class is dirty, 4. 19 MAURI drain placed in fossa and brought out RUQ and secured with 3 0 nylon. TIERA BLANCHARD MD Dec 07, 2021 10:29
[2021-12-07] MEDS ORDERED: DEXTROSE 50% 25 GM / 50ML DISP.SYRIN. IV PRN (10:30)
[2021-12-07] MEDS ORDERED: NALOXONE 0.4 MG/ML VIAL. IV PRN (10:30)
[2021-12-07] MEDS ORDERED: IV NORMAL SALINE 1000ML BAG 1,000 ML IV SCH (10:30)
[2021-12-07] MEDS ORDERED: IV DEXTROSE 5% 250 ML BAG. IV PRN (10:30)
[2021-12-07] MEDS ORDERED: 0.9 % SODIUM CHLORIDE 10 ML DISP.SYRIN. IV PRN (10:30)
[2021-12-07] MEDS ORDERED: ONDANSETRON PF 4 MG/2 ML VIAL. IVP PRN (10:30)
[2021-12-07] MEDS ORDERED: SUGAMMADEX SODIUM 200 MG/2 ML VIAL. IVP ONE (10:30)
[2021-12-07] MEDS ORDERED: IPRATRPIUM/ALBUTEROL 0.5/2.5MG 3 ML NEBU. ONE (10:50)
[2021-12-07] MEDS ORDERED: IPRATRPIUM/ALBUTEROL 0.5/2.5MG 3 ML NEBU. NEB ONE ×2 (10:55→13:30)
[2021-12-07] MEDS ORDERED: KETOROLAC 15 MG/ML VIAL. IVP ONE (11:15)
[2021-12-07] MEDS: IV RINGERS,LACTATED 1000ML 1,000 ML IV SCH ×2 (11:20→20:30)
[2021-12-07] MEDS: fentaNYL PF VIAL 100 MCG/2 ML VIAL IVP PRN ×2 (11:30→11:48)
--- NOTE | 2021-12-07 12:31 | PDOC ---
[facility] [facility] PROGRESS NOTE Date of Service DOS: DATE: 12/07/21 TIME: 12:29 Chief Complaint Chief Complaint Pancreatitis Sepsis Lactic acidosis Hypokalemia Hyperglycemia History of Present Illness History of Present Illness 12/05: Afebrile, currently breathing on 4 L nasal cannula. Some crackling noted on exam in the lung bases. Will administer Lasix 20 mg IV x1. Cholecystectomy prior to discharge, per general surgery. 12/06: Patient evaluated with family at bedside. He notes some improvement in pain. Lipase improving; he may advance his diet to clears. Currently breathing on 5 L nasal cannula; will give Lasix 20 mg x 1. Scheduled for lap saundra t omorrow morning. 12/07: Patient evaluated bedside. He had laparoscopic cholecystectomy today with normal cholangiogram. Surgical site looks good. Audible wheezing noted. Will initiate duo nebs 4 times daily. Discussed with family at bedside and RN. In itiate soft diet and advance as tolerated. Vitals/I&O Vitals/I&O: Vital Signs Date Time Temp Pulse Resp B/P (MAP) Pulse Ox O2 Delivery O2 Flow Rate FiO2 12/07/21 11:48 20 Nasal Cannula 5.0 12/07/21 11:40 96.9 86 135/92 85 96.9 I & O 12/06/21 12/06/21 12/07/21 15:00 23:00 07:00 Intake Total 120 ml 240 ml Balance 120 ml 240 ml Physical Exam General: Alert, Oriented X3, Cooperative, No acute distress Heart: Normal S1, Normal S2, Other (tachy) Lungs: Crackles Abdomen: Soft, Other (min TTP epigastric) Extremities: No clubbing, No cyanosis Skin: No rashes, No breakdown Labs Labs: Laboratory Tests Test 12/06/21 16:04 12/06/21 20:38 12/07/21 06:00 12/07/21 07:01 Glucose (Fingerstick) 145 mg/dL (70-99) 145 mg/dL (70-99) 115 mg/dL (70-99) White Blood Count 7.7 x10^3/uL (4.0-11.0) Red Blood Count 4.28 x10^6/uL (4.30-5.70) Hemoglobin 12.2 g/dL (13.0-17.5) Hematocrit 36.9 % (39.0-53.0) Mean Corpuscular Volume 86 fL (79-100) Mean Corpuscular Hemoglobin 29 pg (25-35) Mean Corpuscular Hemoglobin Concent 33 g/dL (31-37) Red Cell Distribution Width 15.9 % (11.5-14.5) Platelet Count 104 x10^3/uL (140-400) Neutrophils (%) (Auto) 73 % (31-73) Lymphocytes (%) (Auto) 12 % (24-48) Monocytes (%) (Auto) 14 % (0-9) Eosinophils (%) (Auto) 1 % (0-3) Basophils (%) (Auto) 0 % (0-3) Neutrophils # (Auto) 5.6 x10^3/uL (1.8-7.7) Lymphocytes # (Auto) 0.9 x10^3/uL (1.0-4.8) Monocytes # (Auto) 1.1 x10^3/uL (0.0-1.1) Eosinophils # (Auto) 0.1 x10^3/uL (0.0-0.7) Basophils # (Auto) 0.0 x10^3/uL (0.0-0.2) Segmented Neutrophils % 58 % (35-66) Band Neutrophils % 16 % (0-9) Lymphocytes % 13 % (24-48) Atypical Lymphocytes % (Manual) 2 % (0-0) Monocytes % 10 % (0-10) Eosinophils % 1 % (0-5) Platelet Estimate Decreased (ADEQUATE) Large Platelets Few Sodium Level 141 mmol/L (136-145) Potassium Level 3.2 mmol/L (3.5-5.1) Chloride Level 106 mmol/L (98-107) Carbon Dioxide Level 23 mmol/L (21-32) Anion Gap 12 (6-14) Blood Urea Nitrogen 20 mg/dL (8-26) Creatinine 0.9 mg/dL (0.7-1.3) Estimated GFR (Cockcroft-Gault) 79.8 Glucose Level 108 mg/dL (70-99) Calcium Level 6.6 mg/dL (8.5-10.1) Assessment and Plan Assessmemt and Plan Problems Medical Problems: (1) Hypokalemia Status: Acute (2) Lactic acidosis Status: Acute (3) Pancreatitis Status: Acute (4) Paroxysmal atrial fibrillation Status: Acute Comment Review of Relevant I have reviewed the following items ayo (where applicable) has been applied. Medications: Current Medications Medications (Trade) Dose Ordered Sig/Ayleen Route PRN Reason Start Time Stop Time Status Last Admin Dose Admin Sodium Chloride 1,000 ml @ 75 mls/hr [id number] IV 12/06/21 13:00 12/07/21 02:15 Furosemide (Lasix) 20 mg 1X ONCE IVP 12/06/21 12:30 12/06/21 12:46 DC 12/06/21 15:54 Bupivacaine HCl/ Epinephrine Bitart (Sensorcain-Epi 0.5% Kit) 30 ml STK-MED ONCE .ROUTE 12/07/21 07:06 12/07/21 07:06 DC 12/07/21 09:14 Iohexol (Omnipaque 300 Mg/ml) 50 ml STK-MED ONCE .ROUTE 12/07/21 07:06 12/07/21 07:06 DC 12/07/21 09:41 Heparin Sodium (Porcine) 1000 unit/Sodium Chloride 1,001 ml @ 1,001 mls/hr 1X ONCE IRR 12/07/21 06:00 12/07/21 07:07 DC 12/07/21 09:14 Bisacodyl (Dulcolax Supp) 10 mg STK-MED ONCE .ROUTE 12/07/21 07:06 12/07/21 07:06 DC 12/07/21 10:06 Fentanyl Citrate (Fentanyl 2ml Vial) 25 mcg PRN Q5MIN PRN IVP MILD PAIN 1-3 12/07/21 08:00 12/08/21 07:59 12/07/21 11:48 Ringer's Solution 1,000 ml @ 30 mls/hr Q24H IV 12/07/21 08:00 12/07/21 19:59 12/07/21 09:00 Ringer's Solution 1,000 ml @ 100 mls/hr Q10H IV 12/07/21 10:30 12/07/21 11:20 Albuterol/ Ipratropium (Duoneb) 3 ml 1X ONCE NEB 12/07/21 10:55 12/07/21 11:10 DC 12/07/21 11:20 Ketorolac Tromethamine (Toradol 15mg Vial) 15 mg 1X ONCE IVP 12/07/21 11:15 12/07/21 11:16 DC 12/07/21 11:24 Justifications for Admission Other Justification JOANA JENSEN MD Dec 07, 2021 12:31
[2021-12-07] MEDS: PANTOPRAZOLE IV PUSH 40 MG VIAL. IVP SCH (15:43)
[2021-12-07] MEDS: HYDROcodone/APAP 5/325MG 1 TAB TABLET PO PRN (15:46)
[2021-12-07] MEDS ORDERED: POTASSIUM CHLORIDE 20 MEQ TABLET.ER. PO ONE (16:00)
--- NOTE | 2021-12-07 18:55 | NUR ---
Nurse's Note: The patient underwent laparoscopic cholecystectomy with intraoperative cholangiogram. He was back on the unit at 1200, drowsy, VSS, O2 sat at 90% on 5L oxygen. Surgical wound dressing, clean, dry and intact; MAURI drain on the RLQ. The patient tolerated clears and full liquids; we'll continue to monitor.
[2021-12-07] MEDS: DOCUSATE SODIUM 100 MG CAPSULE. PO SCH (21:00)
[2021-12-08] VITALS (7 sets, daily range): BP systolic 121–153; BP diastolic 62–77
[2021-12-08] MEDS: IV NORMAL SALINE 1000ML BAG 1,000 ML IV SCH (05:00)
[2021-12-08] MEDS: IV RINGERS,LACTATED 1000ML 1,000 ML IV SCH (06:30)
[2021-12-08] MEDS ORDERED: IPRATRPIUM/ALBUTEROL 0.5/2.5MG 3 ML NEBU. ONE (06:46)
[2021-12-08] MEDS: IPRATRPIUM/ALBUTEROL 0.5/2.5MG 3 ML NEBU. NEB SCH ×4 (07:04→21:02)
[2021-12-08 07:30] LABS: CREATININE 0.9 mg/dL (0.7-1.3); GFR 79.8; POTASSIUM 3.4 mmol/L (3.5-5.1)
[2021-12-08] MEDS: INSULIN LISPRO 300 UNITS/3 ML VIAL. SQ SCH ×3 (08:00→17:00)
[2021-12-08 08:29] LABS: BASO % 0 % (0-3); EOS % 0 % (0-3); HEMOGLOBIN 11.7 g/dL (13.0-17.5); LYMPH # 0.7 x10^3/uL (1.0-4.8); LYMPH % 10 % (24-48); MEAN CORPUSCULAR HEMOGLOBIN 28 pg (25-35); MEAN CORPUSCULAR HGB CONC 33 g/dL (31-37); MEAN CORPUSCULAR VOLUME 86 fL (79-100); MONO # 0.9 x10^3/uL (0.0-1.1); MONO % 12 % (0-9); NEUT # 5.9 x10^3/uL (1.8-7.7); NEUT % 79 % (31-73); PLATELET COUNT 101 x10^3/uL (140-400); RED BLOOD COUNT 4.17 x10^6/uL (4.30-5.70); RED CELL DISTRIBUTION WIDTH 15.6 % (11.5-14.5); WHITE BLOOD COUNT 7.5 x10^3/uL (4.0-11.0)
--- NOTE | 2021-12-08 08:32 | PDOC ---
SURGICAL PROGRESS NOTE DATE: 12/08/21 TIME: 08:31 Subjective resting had some breakfast Vital Signs Vital Signs Date Time Temp Pulse Resp B/P (MAP) Pulse Ox O2 Delivery O2 Flow Rate FiO2 12/08/21 07:06 91 Nasal Cannula 5.0 12/08/21 03:00 97.6 86 20 136/70 (92) 97.6 I&O Intake and Output 12/08/21 06:59 Intake Total 1960 ml Output Total 291 ml Balance 1669 ml Intake Oral 360 ml IV Total 1600 ml Output Urine Total 51 ml Drainage Total 200 ml Estimated Blood Loss 40 ml # Voids 2 General: Alert, Oriented X3, Cooperative Abdomen: Soft, Other (distended, braxton serosang) Labs Laboratory Tests Test 12/06/21 11:09 12/06/21 16:04 12/06/21 20:38 12/07/21 06:00 Glucose (Fingerstick) 142 mg/dL (70-99) 145 mg/dL (70-99) 145 mg/dL (70-99) White Blood Count 7.7 x10^3/uL (4.0-11.0) Red Blood Count 4.28 x10^6/uL (4.30-5.70) Hemoglobin 12.2 g/dL (13.0-17.5) Hematocrit 36.9 % (39.0-53.0) Mean Corpuscular Volume 86 fL (79-100) Mean Corpuscular Hemoglobin 29 pg (25-35) Mean Corpuscular Hemoglobin Concent 33 g/dL (31-37) Red Cell Distribution Width 15.9 % (11.5-14.5) Platelet Count 104 x10^3/uL (140-400) Neutrophils (%) (Auto) 73 % (31-73) Lymphocytes (%) (Auto) 12 % (24-48) Monocytes (%) (Auto) 14 % (0-9) Eosinophils (%) (Auto) 1 % (0-3) Basophils (%) (Auto) 0 % (0-3) Neutrophils # (Auto) 5.6 x10^3/uL (1.8-7.7) Lymphocytes # (Auto) 0.9 x10^3/uL (1.0-4.8) Monocytes # (Auto) 1.1 x10^3/uL (0.0-1.1) Eosinophils # (Auto) 0.1 x10^3/uL (0.0-0.7) Basophils # (Auto) 0.0 x10^3/uL (0.0-0.2) Segmented Neutrophils % 58 % (35-66) Band Neutrophils % 16 % (0-9) Lymphocytes % 13 % (24-48) Atypical Lymphocytes % (Manual) 2 % (0-0) Monocytes % 10 % (0-10) Eosinophils % 1 % (0-5) Platelet Estimate Decreased (ADEQUATE) Large Platelets Few Sodium Level 141 mmol/L (136-145) Potassium Level 3.2 mmol/L (3.5-5.1) Chloride Level 106 mmol/L (98-107) Carbon Dioxide Level 23 mmol/L (21-32) Anion Gap 12 (6-14) Blood Urea Nitrogen 20 mg/dL (8-26) Creatinine 0.9 mg/dL (0.7-1.3) Estimated GFR (Cockcroft-Gault) 79.8 Glucose Level 108 mg/dL (70-99) Calcium Level 6.6 mg/dL (8.5-10.1) Test 12/07/21 07:01 12/07/21 16:59 12/07/21 20:45 12/08/21 06:15 Glucose (Fingerstick) 115 mg/dL (70-99) 172 mg/dL (70-99) 183 mg/dL (70-99) White Blood Count 7.5 x10^3/uL (4.0-11.0) Red Blood Count 4.17 x10^6/uL (4.30-5.70) Hemoglobin 11.7 g/dL (13.0-17.5) Hematocrit 36.0 % (39.0-53.0) Mean Corpuscular Volume 86 fL (79-100) Mean Corpuscular Hemoglobin 28 pg (25-35) Mean Corpuscular Hemoglobin Concent 33 g/dL (31-37) Red Cell Distribution Width 15.6 % (11.5-14.5) Platelet Count 101 x10^3/uL (140-400) Neutrophils (%) (Auto) 79 % (31-73) Lymphocytes (%) (Auto) 10 % (24-48) Monocytes (%) (Auto) 12 % (0-9) Eosinophils (%) (Auto) 0 % (0-3) Basophils (%) (Auto) 0 % (0-3) Neutrophils # (Auto) 5.9 x10^3/uL (1.8-7.7) Lymphocytes # (Auto) 0.7 x10^3/uL (1.0-4.8) Monocytes # (Auto) 0.9 x10^3/uL (0.0-1.1) Eosinophils # (Auto) 0.0 x10^3/uL (0.0-0.7) Basophils # (Auto) 0.0 x10^3/uL (0.0-0.2) Sodium Level 143 mmol/L (136-145) Potassium Level 3.4 mmol/L (3.5-5.1) Chloride Level 109 mmol/L (98-107) Carbon Dioxide Level 23 mmol/L (21-32) Anion Gap 11 (6-14) Blood Urea Nitrogen 24 mg/dL (8-26) Creatinine 0.9 mg/dL (0.7-1.3) Estimated GFR (Cockcroft-Gault) 79.8 Glucose Level 148 mg/dL (70-99) Calcium Level 7.0 mg/dL (8.5-10.1) Test 12/08/21 07:15 Glucose (Fingerstick) 144 mg/dL (70-99) Laboratory Tests Test 12/07/21 16:59 12/07/21 20:45 12/08/21 06:15 12/08/21 07:15 Glucose (Fingerstick) 172 mg/dL (70-99) 183 mg/dL (70-99) 144 mg/dL (70-99) White Blood Count 7.5 x10^3/uL (4.0-11.0) Red Blood Count 4.17 x10^6/uL (4.30-5.70) Hemoglobin 11.7 g/dL (13.0-17.5) Hematocrit 36.0 % (39.0-53.0) Mean Corpuscular Volume 86 fL (79-100) Mean Corpuscular Hemoglobin 28 pg (25-35) Mean Corpuscular Hemoglobin Concent 33 g/dL (31-37) Red Cell Distribution Width 15.6 % (11.5-14.5) Platelet Count 101 x10^3/uL (140-400) Neutrophils (%) (Auto) 79 % (31-73) Lymphocytes (%) (Auto) 10 % (24-48) Monocytes (%) (Auto) 12 % (0-9) Eosinophils (%) (Auto) 0 % (0-3) Basophils (%) (Auto) 0 % (0-3) Neutrophils # (Auto) 5.9 x10^3/uL (1.8-7.7) Lymphocytes # (Auto) 0.7 x10^3/uL (1.0-4.8) Monocytes # (Auto) 0.9 x10^3/uL (0.0-1.1) Eosinophils # (Auto) 0.0 x10^3/uL (0.0-0.7) Basophils # (Auto) 0.0 x10^3/uL (0.0-0.2) Sodium Level 143 mmol/L (136-145) Potassium Level 3.4 mmol/L (3.5-5.1) Chloride Level 109 mmol/L (98-107) Carbon Dioxide Level 23 mmol/L (21-32) Anion Gap 11 (6-14) Blood Urea Nitrogen 24 mg/dL (8-26) Creatinine 0.9 mg/dL (0.7-1.3) Estimated GFR (Cockcroft-Gault) 79.8 Glucose Level 148 mg/dL (70-99) Calcium Level 7.0 mg/dL (8.5-10.1) Problem List Problems Medical Problems: (1) Hypokalemia Status: Acute (2) Lactic acidosis Status: Acute (3) Pancreatitis Status: Acute (4) Paroxysmal atrial fibrillation Status: Acute Assessment/Plan s/p saundra, severe--would continue drain, abx requiring 5 l o2--defer management to IPC Justicifation of Admission Dx: Justifications for Admission: Justification of Admission Dx: Yes CINDY FOX JEWEL BEARING GRINDER Dec 08, 2021 08:32
[2021-12-08] MEDS: PANTOPRAZOLE IV PUSH 40 MG VIAL. IVP SCH (08:33)
[2021-12-08] MEDS: DOCUSATE SODIUM 100 MG CAPSULE. PO SCH ×2 (08:33→20:32)
[2021-12-08] MEDS: HEPARIN for SUB-Q USE 5,000 UNIT/ML VIAL. SQ SCH ×2 (08:36→20:37)
--- NOTE | 2021-12-08 10:07 | PDOC ---
Date of Service: DATE: 12/08/21 TIME: 10:02 Subjective: Subjective: Family in room (translates) says was told he could go home today. Tolerating diet, feeling better. Questions about drain. Objective: Vital Signs: Vital Signs Date Time Temp Pulse Resp B/P (MAP) Pulse Ox O2 Delivery O2 Flow Rate FiO2 12/08/21 08:30 97.4 84 23 153/69 (97) 90 Nasal Cannula 5.0 97.4 Labs: Laboratory Tests Test 12/07/21 16:59 12/07/21 20:45 12/08/21 06:15 12/08/21 07:15 Glucose (Fingerstick) 172 mg/dL 183 mg/dL 144 mg/dL White Blood Count 7.5 x10^3/uL Red Blood Count 4.17 x10^6/uL Hemoglobin 11.7 g/dL Hematocrit 36.0 % Mean Corpuscular Volume 86 fL Mean Corpuscular Hemoglobin 28 pg Mean Corpuscular Hemoglobin Concent 33 g/dL Red Cell Distribution Width 15.6 % Platelet Count 101 x10^3/uL Neutrophils (%) (Auto) 79 % Lymphocytes (%) (Auto) 10 % Monocytes (%) (Auto) 12 % Eosinophils (%) (Auto) 0 % Basophils (%) (Auto) 0 % Neutrophils # (Auto) 5.9 x10^3/uL Lymphocytes # (Auto) 0.7 x10^3/uL Monocytes # (Auto) 0.9 x10^3/uL Eosinophils # (Auto) 0.0 x10^3/uL Basophils # (Auto) 0.0 x10^3/uL Sodium Level 143 mmol/L Potassium Level 3.4 mmol/L Chloride Level 109 mmol/L Carbon Dioxide Level 23 mmol/L Anion Gap 11 Blood Urea Nitrogen 24 mg/dL Creatinine 0.9 mg/dL Estimated GFR (Cockcroft-Gault) 79.8 Glucose Level 148 mg/dL Calcium Level 7.0 mg/dL BLOOD CULTURE Preliminary NO GROWTH AFTER 4 DAYS Imaging: IOC IMPRESSION: No apparent abnormality. PE: GEN: NAD LUNGS: diminished, 5L O2 HEART: RRR ABD: soft, non-tender, MAURI drain thin reddish NEURO/PSYCH: awake and alert, calm A/P: Pancreatitis s/o cholecystectomy -- Continue per surgery/primary - tolerating diet post-op - some increased O2 requirements since admission. Justicifation of Admission Dx: Justifications for Admission: Justification of Admission Dx: Yes SEAN SERRANO Dec 08, 2021 10:07
[2021-12-08] MEDS ORDERED: HYDR-2761 PO (11:53)
--- NOTE | 2021-12-08 11:54 | SNU/HH DC ---
DISCHARGE WITH HOME HEALTH DISCHARGE INFORMATION: Final Diagnosis: Problems Medical Problems: (1) Hypokalemia Status: Acute (2) Lactic acidosis Status: Acute (3) Pancreatitis Status: Acute (4) Paroxysmal atrial fibrillation Status: Acute Condition on Discharge: Stable CODE STATUS: Code Status: Full HOME HEALTH: Face to Face: I certify this patient is under my care and that I, or a nurse practitioner or physician's yard assistant working with me, had a face to face encounter that meets the physician face to face encounter requirements with this patient on []. Medical Complications: Other (Recent lap Sarai) Intermediate For: Assess & Educate Safety RN For Eval/Treatment: Yes Physical Therapy For: Evalulation/Treatment Occupational Therapy For: Evaluation/Treatment Home Health Aide For: Self-care [employer] ADVISOR For: Community Resources Pt Meets Homebound Status: Poor coordination w/ amb. POST DISCHARGE ORDERS: DIET AFTER DISCHARGE: Cardiac CERTIFICATION STATEMENT: Certification Statement: Certification Statement: Based on the above finding, I certify that this patient is confined to the home and needs intermittent residential care, physical therapy and/or speech therapy, or continues to need occupational therapy.~ This patient is under my care, and I have initiated the establishment of the plan of care.~ This patient will be followed by myself or a community physician who will periodically review the plan of care. Home Meds Active Scripts Hydrocodone Bit/Acetaminophen (HYDROCODONE-APAP 5-325 ) 1 Tab Tablet, 1 TAB PO PRN Q4HRS PRN for MILD PAIN 1-3 for 10 Days, #20 TAB Prov:BOBBY ELIZABETHL K III DO 12/08/21 Sumatriptan Succinate (IMITREX) 100 Mg Tablet, 1 TAB PO UD, #9 TAB 1 Refill Prov:HOLDEN MONROE MD 07/22/17 Acetaminophen (TYLENOL) 325 Mg Tablet, 1-2 TAB PO QID, #60 TAB 2 Refills Prov:HOLDEN MONROE MD 07/22/17 Ondansetron (ZOFRAN ODT) 4 Mg Tab.rapdis, 4 MG PO BID PRN for NAUSEA/VOMITING for 7 Days, #14 TAB Prov:HOLDEN MONROE MD 07/22/17 Reported Medications Cetirizine Hcl (CETIRIZINE HCL) 10 Mg Tablet, 1 TAB PO DAILY for allergy, #30 TAB 5 Refills 12/04/21 Ipratropium/Albuterol Sulfate (COMBIVENT RESPIMAT INHAL) 4 Gm Aer.w.adap, 2 INH IH QID for shortness of breathe, EACH 12/04/21 MONICA ELIZABETH III DO Dec 08, 2021 11:54
--- NOTE | 2021-12-08 12:15 | NUR ---
Dr. Garcia paged re: pt's wheezing and d/c order for today.
--- NOTE | 2021-12-08 12:22 | NUR ---
Dr. Garcia returned call, notified of pt's respiratory status, telephone orders received.
--- NOTE | 2021-12-08 14:16 | RAD ---
EXAMINATION: XR CHEST 1V CLINICAL HISTORY: Wheezing. TECHNIQUE: XR CHEST 1V COMPARISON: 12/04/2021 FINDINGS/ IMPRESSION: Findings suspicious for volume overload, correlate clinically. Small bilateral pleural effusions with increased hazy and patchy opacities in the lower lung zones, g reater on the left. Increased diffuse interstitial opacities. Electronically signed by: Matt Aden DO (12/08/2021 2:13 PM) [id number]
[2021-12-08] MEDS ORDERED: FUROSEMIDE 40 MG/4 ML VIAL. IVP ONE (15:15)
--- NOTE | 2021-12-09 00:39 | PN ---
DATE: 12/08/2021 CHIEF COMPLAINT: Pancreatitis, postoperative laparoscopic cholecystectomy. HISTORY OF PRESENT ILLNESS: The patient is a pleasant 86-year-old male who underwent laparoscopic cholecystectomy yesterday. Today, I saw and examined him. He is doing well and wants to go home, but his lungs are little wet. We got a chest x-ray showing vascular congestion. I discussed the case with the nurse and the patient case coordinator. We plan to go ahead and give him a dose of Lasix, let him to go home tomorrow. ASSESSMENT AND PLAN: Postoperative laparoscopic cholecystectomy and volume overload. We will give her IV Lasix today and then hope to discharge in the morning. DEE/JOANNE DR: Tha TID: [id number]
[2021-12-09 03:00] VITALS: BP 142/67
[2021-12-09 05:45] LABS: CALCIUM 7.4 mg/dL (8.5-10.1); CREATININE 0.9 mg/dL (0.7-1.3); GFR 79.8
[2021-12-09 05:48] LABS: POTASSIUM 2.8 mmol/L (3.5-5.1)
[2021-12-09 05:56] LABS: BASO % 0 % (0-3); EOS # 0.1 x10^3/uL (0.0-0.7); EOS % 1 % (0-3); HEMATOCRIT 36.1 % (39.0-53.0); HEMOGLOBIN 11.9 g/dL (13.0-17.5); LYMPH # 0.9 x10^3/uL (1.0-4.8); LYMPH % 11 % (24-48); MEAN CORPUSCULAR HEMOGLOBIN 28 pg (25-35); MEAN CORPUSCULAR HGB CONC 33 g/dL (31-37); MEAN CORPUSCULAR VOLUME 85 fL (79-100); MONO # 1.4 x10^3/uL (0.0-1.1); MONO % 17 % (0-9); NEUT % 71 % (31-73); PLATELET COUNT 122 x10^3/uL (140-400); RED BLOOD COUNT 4.25 x10^6/uL (4.30-5.70); RED CELL DISTRIBUTION WIDTH 15.5 % (11.5-14.5); WHITE BLOOD COUNT 8.4 x10^3/uL (4.0-11.0)
[2021-12-09] MEDS ORDERED: POTASSIUM CHLORIDE 20 MEQ TABLET.ER. PO ONE ×2 (06:00→10:00)
[2021-12-09 07:15] VITALS: BP 120/54
[2021-12-09] MEDS: IPRATRPIUM/ALBUTEROL 0.5/2.5MG 3 ML NEBU. NEB SCH ×4 (07:28→20:00)
[2021-12-09] MEDS: INSULIN LISPRO 300 UNITS/3 ML VIAL. SQ SCH ×3 (07:55→17:00)
[2021-12-09] MEDS: PANTOPRAZOLE IV PUSH 40 MG VIAL. IVP SCH (08:19)
[2021-12-09] MEDS: DOCUSATE SODIUM 100 MG CAPSULE. PO SCH ×2 (08:19→20:30)
[2021-12-09] MEDS: HEPARIN for SUB-Q USE 5,000 UNIT/ML VIAL. SQ SCH ×2 (08:24→20:36)
--- NOTE | 2021-12-09 09:54 | PDOC ---
Date of Service: DATE: 12/09/21 TIME: 09:51 Subjective: Subjective: Family says he has some incisional-type pain. Tolerating PO. Objective: Objective: No GI concerns per nurse. Vital Signs: Vital Signs Date Time Temp Pulse Resp B/P (MAP) Pulse Ox O2 Delivery O2 Flow Rate FiO2 12/09/21 07:28 86 Nasal Cannula 4.0 12/09/21 07:15 99.8 90 18 120/54 (76) 99.8 Labs: Laboratory Tests Test 12/08/21 11:27 12/08/21 16:46 12/08/21 20:17 12/09/21 04:10 Glucose (Fingerstick) 164 mg/dL 102 mg/dL 125 mg/dL White Blood Count 8.4 x10^3/uL Red Blood Count 4.25 x10^6/uL Hemoglobin 11.9 g/dL Hematocrit 36.1 % Mean Corpuscular Volume 85 fL Mean Corpuscular Hemoglobin 28 pg Mean Corpuscular Hemoglobin Concent 33 g/dL Red Cell Distribution Width 15.5 % Platelet Count 122 x10^3/uL Neutrophils (%) (Auto) 71 % Lymphocytes (%) (Auto) 11 % Monocytes (%) (Auto) 17 % Eosinophils (%) (Auto) 1 % Basophils (%) (Auto) 0 % Neutrophils # (Auto) 6.0 x10^3/uL Lymphocytes # (Auto) 0.9 x10^3/uL Monocytes # (Auto) 1.4 x10^3/uL Eosinophils # (Auto) 0.1 x10^3/uL Basophils # (Auto) 0.0 x10^3/uL Sodium Level 144 mmol/L Potassium Level 2.8 mmol/L Chloride Level 109 mmol/L Carbon Dioxide Level 26 mmol/L Anion Gap 9 Blood Urea Nitrogen 21 mg/dL Creatinine 0.9 mg/dL Estimated GFR (Cockcroft-Gault) 79.8 Glucose Level 130 mg/dL Calcium Level 7.4 mg/dL Test 12/09/21 07:15 Glucose (Fingerstick) 135 mg/dL BLOOD CULTURE Final NO GROWTH AFTER 5 DAYS Imaging: CXR FINDINGS/ IMPRESSION: Findings suspicious for volume overload, correlate clinically. Small bilateral pleural effusions with increased hazy and patchy opacities in the lower lung zones, greater on the left. Increased diffuse interstitial opacities. PE: GEN: NAD LUNGS: diminished, NC 5L HEART: RRR ABD: some RUQ discomfort (mild), soft, drain serosang NEURO/PSYCH: A & O A/P: Pancreatitis - resolving S/p cholecystectomy Resp failure - CXR as above Hypokalemia -- Improved from GI standpoint, continue per primary/surgery. Justicifation of Admission Dx: Justifications for Admission: Justification of Admission Dx: Yes SEAN SERRANO Dec 09, 2021 09:54
[2021-12-09 11:08] VITALS: BP 110/63
--- NOTE | 2021-12-09 12:20 | PDOC ---
[employer] PROGRESS NOTE Date of Service DOS: DATE: 12/09/21 TIME: 12:20 Chief Complaint Chief Complaint Pancreatitis Sepsis Lactic acidosis Hypokalemia Hyperglycemia History of Present Illness History of Present Illness 12/10/2019 Patient seen and examined Discussed with RN Chart reviewed Hope to discharge this afternoon 12/05: Afebrile, currently breathing on 4 L nasal cannula. Some crackling noted on exam in the lung bases. Will administer Lasix 20 mg IV x1. Cholecystectomy prior to discharge, per general surgery. 12/06: Patient evaluated with family at bedside. He notes some improvement in pain. Lipase improving; he may advance his diet to clears. Currently breathing on 5 L nasal cannula; will give Lasix 20 mg x 1. Scheduled for lap saundra tomorrow morning. 12/07: Patient evaluated bedside. He had laparoscopic cholecystectomy today with normal cholangiogram. Surgical site looks good. Audible wheezing noted. Will initiate duo nebs 4 times daily. Discussed with family at bedside and RN. Initiate soft diet and advance as tolerated. Vitals/I&O Vitals/I&O: Vital Signs Date Time Temp Pulse Resp B/P (MAP) Pulse Ox O2 Delivery O2 Flow Rate FiO2 12/09/21 11:12 90 Nasal Cannula 5.0 12/09/21 11:08 99.0 94 22 110/63 (79) 99.0 I & O 12/08/21 12/08/21 12/09/21 15:00 23:00 07:00 Output Total 51 ml 30 ml Balance -51 ml -30 ml Physical Exam General: Alert, Oriented X3, Cooperative Heart: Normal S1, Normal S2, Other (tachy) Lungs: Crackles Abdomen: Soft, Other (distended, braxton serosang) Extremities: No clubbing, No cyanosis Skin: No rashes, No breakdown Labs Labs: Laboratory Tests Test 12/08/21 16:46 12/08/21 20:17 12/09/21 04:10 12/09/21 07:15 Glucose (Fingerstick) 102 mg/dL (70-99) 125 mg/dL (70-99) 135 mg/dL (70-99) White Blood Count 8.4 x10^3/uL (4.0-11.0) Red Blood Count 4.25 x10^6/uL (4.30-5.70) Hemoglobin 11.9 g/dL (13.0-17.5) Hematocrit 36.1 % (39.0-53.0) Mean Corpuscular Volume 85 fL (79-100) Mean Corpuscular Hemoglobin 28 pg (25-35) Mean Corpuscular Hemoglobin Concent 33 g/dL (31-37) Red Cell Distribution Width 15.5 % (11.5-14.5) Platelet Count 122 x10^3/uL (140-400) Neutrophils (%) (Auto) 71 % (31-73) Lymphocytes (%) (Auto) 11 % (24-48) Monocytes (%) (Auto) 17 % (0-9) Eosinophils (%) (Auto) 1 % (0-3) Basophils (%) (Auto) 0 % (0-3) Neutrophils # (Auto) 6.0 x10^3/uL (1.8-7.7) Lymphocytes # (Auto) 0.9 x10^3/uL (1.0-4.8) Monocytes # (Auto) 1.4 x10^3/uL (0.0-1.1) Eosinophils # (Auto) 0.1 x10^3/uL (0.0-0.7) Basophils # (Auto) 0.0 x10^3/uL (0.0-0.2) Sodium Level 144 mmol/L (136-145) Potassium Level 2.8 mmol/L (3.5-5.1) Chloride Level 109 mmol/L (98-107) Carbon Dioxide Level 26 mmol/L (21-32) Anion Gap 9 (6-14) Blood Urea Nitrogen 21 mg/dL (8-26) Creatinine 0.9 mg/dL (0.7-1.3) Estimated GFR (Cockcroft-Gault) 79.8 Glucose Level 130 mg/dL (70-99) Calcium Level 7.4 mg/dL (8.5-10.1) Assessment and Plan Assessmemt and Plan Problems Medical Problems: (1) Hypokalemia Status: Acute (2) Lactic acidosis Status: Acute (3) Pancreatitis Status: Acute (4) Paroxysmal atrial fibrillation Status: Acute Discharge see dictation Comment Review of Relevant I have reviewed the following items ayo (where applicable) has been applied. Medications: Current Medications Medications (Trade) Dose Ordered Sig/Ayleen Route PRN Reason Start Time Stop Time Status Last Admin Dose Admin Furosemide (Lasix) 40 mg 1X ONCE IVP 12/08/21 15:15 12/08/21 15:16 DC 12/08/21 15:46 Potassium Chloride (Klor-Con) 40 meq 1X ONCE PO 12/09/21 06:00 12/09/21 06:01 DC 12/09/21 06:04 Potassium Chloride (Klor-Con) 40 meq 1X ONCE PO 12/09/21 10:00 12/09/21 10:01 DC 12/09/21 10:39 Justifications for Admission Other Justification MONICA ELIZABETH K III DO Dec 09, 2021 12:20
--- NOTE | 2021-12-09 12:27 | NUR ---
Dr. Garcia notified of pt still on 5L NC, state he would hold d/c today and place further orders.
[2021-12-09] MEDS ORDERED: FUROSEMIDE 40 MG/4 ML VIAL. IVP ONE (12:30)
[2021-12-09] MEDS: HYDROcodone/APAP 5/325MG 1 TAB TABLET PO PRN (13:48)
[2021-12-09 15:15] VITALS: BP 116/70
[2021-12-09 16:02] LABS: BASE EXCESS ABG 4 mmol/L (-3-3); HCO3 ABG 27 mmol/L (21-28); PCO2 ABG 32 mmHg (35-46); PO2 ABG 62 mmHg (65-108); SAT O2 ABG 93 % (92-99)
[2021-12-09 16:11] LABS: FIO2 ABG 5L n.c.
--- NOTE | 2021-12-09 16:40 | NUR ---
Dr. Garcia paged re: ABG results.
--- NOTE | 2021-12-09 18:08 | NUR ---
Consult paged out to Dr. Al.
[2021-12-09 19:15] VITALS: BP 92/57
--- NOTE | 2021-12-09 19:40 | PDOC ---
SURGICAL PROGRESS NOTE DATE: 12/09/21 TIME: 19:38 Subjective Pt with some SOA, pt seen earlier in the day Vital Signs Vital Signs Date Time Temp Pulse Resp B/P (MAP) Pulse Ox O2 Delivery O2 Flow Rate FiO2 12/09/21 16:12 93 Nasal Cannula 5.0 12/09/21 15:15 98.1 82 20 116/70 (85) 98.1 I&O Intake and Output 12/09/21 07:00 Output Total 81 ml Balance -81 ml Output Urine Total 1 ml Drainage Total 80 ml # Voids 3 General: Alert, No acute distress Abdomen: Soft, No tenderness Labs Laboratory Tests Test 12/07/21 20:45 12/08/21 06:15 12/08/21 07:15 12/08/21 11:27 Glucose (Fingerstick) 183 mg/dL (70-99) 144 mg/dL (70-99) 164 mg/dL (70-99) White Blood Count 7.5 x10^3/uL (4.0-11.0) Red Blood Count 4.17 x10^6/uL (4.30-5.70) Hemoglobin 11.7 g/dL (13.0-17.5) Hematocrit 36.0 % (39.0-53.0) Mean Corpuscular Volume 86 fL (79-100) Mean Corpuscular Hemoglobin 28 pg (25-35) Mean Corpuscular Hemoglobin Concent 33 g/dL (31-37) Red Cell Distribution Width 15.6 % (11.5-14.5) Platelet Count 101 x10^3/uL (140-400) Neutrophils (%) (Auto) 79 % (31-73) Lymphocytes (%) (Auto) 10 % (24-48) Monocytes (%) (Auto) 12 % (0-9) Eosinophils (%) (Auto) 0 % (0-3) Basophils (%) (Auto) 0 % (0-3) Neutrophils # (Auto) 5.9 x10^3/uL (1.8-7.7) Lymphocytes # (Auto) 0.7 x10^3/uL (1.0-4.8) Monocytes # (Auto) 0.9 x10^3/uL (0.0-1.1) Eosinophils # (Auto) 0.0 x10^3/uL (0.0-0.7) Basophils # (Auto) 0.0 x10^3/uL (0.0-0.2) Sodium Level 143 mmol/L (136-145) Potassium Level 3.4 mmol/L (3.5-5.1) Chloride Level 109 mmol/L (98-107) Carbon Dioxide Level 23 mmol/L (21-32) Anion Gap 11 (6-14) Blood Urea Nitrogen 24 mg/dL (8-26) Creatinine 0.9 mg/dL (0.7-1.3) Estimated GFR (Cockcroft-Gault) 79.8 Glucose Level 148 mg/dL (70-99) Calcium Level 7.0 mg/dL (8.5-10.1) Test 12/08/21 16:46 12/08/21 20:17 12/09/21 04:10 12/09/21 07:15 Glucose (Fingerstick) 102 mg/dL (70-99) 125 mg/dL (70-99) 135 mg/dL (70-99) White Blood Count 8.4 x10^3/uL (4.0-11.0) Red Blood Count 4.25 x10^6/uL (4.30-5.70) Hemoglobin 11.9 g/dL (13.0-17.5) Hematocrit 36.1 % (39.0-53.0) Mean Corpuscular Volume 85 fL (79-100) Mean Corpuscular Hemoglobin 28 pg (25-35) Mean Corpuscular Hemoglobin Concent 33 g/dL (31-37) Red Cell Distribution Width 15.5 % (11.5-14.5) Platelet Count 122 x10^3/uL (140-400) Neutrophils (%) (Auto) 71 % (31-73) Lymphocytes (%) (Auto) 11 % (24-48) Monocytes (%) (Auto) 17 % (0-9) Eosinophils (%) (Auto) 1 % (0-3) Basophils (%) (Auto) 0 % (0-3) Neutrophils # (Auto) 6.0 x10^3/uL (1.8-7.7) Lymphocytes # (Auto) 0.9 x10^3/uL (1.0-4.8) Monocytes # (Auto) 1.4 x10^3/uL (0.0-1.1) Eosinophils # (Auto) 0.1 x10^3/uL (0.0-0.7) Basophils # (Auto) 0.0 x10^3/uL (0.0-0.2) Sodium Level 144 mmol/L (136-145) Potassium Level 2.8 mmol/L (3.5-5.1) Chloride Level 109 mmol/L (98-107) Carbon Dioxide Level 26 mmol/L (21-32) Anion Gap 9 (6-14) Blood Urea Nitrogen 21 mg/dL (8-26) Creatinine 0.9 mg/dL (0.7-1.3) Estimated GFR (Cockcroft-Gault) 79.8 Glucose Level 130 mg/dL (70-99) Calcium Level 7.4 mg/dL (8.5-10.1) Test 12/09/21 11:27 12/09/21 12:30 12/09/21 16:57 Glucose (Fingerstick) 156 mg/dL (70-99) 128 mg/dL (70-99) O2 Saturation 93 % (92-99) Arterial Blood pH 7.54 (7.35-7.45) Arterial Blood pCO2 at Patient Temp 32 mmHg (35-46) Arterial Blood pO2 at Patient Temp 62 mmHg (65-108) Arterial Blood HCO3 27 mmol/L (21-28) Arterial Blood Base Excess 4 mmol/L (-3-3) FiO2 5l n.c. Laboratory Tests Test 12/08/21 20:17 12/09/21 04:10 12/09/21 07:15 12/09/21 11:27 Glucose (Fingerstick) 125 mg/dL (70-99) 135 mg/dL (70-99) 156 mg/dL (70-99) White Blood Count 8.4 x10^3/uL (4.0-11.0) Red Blood Count 4.25 x10^6/uL (4.30-5.70) Hemoglobin 11.9 g/dL (13.0-17.5) Hematocrit 36.1 % (39.0-53.0) Mean Corpuscular Volume 85 fL (79-100) Mean Corpuscular Hemoglobin 28 pg (25-35) Mean Corpuscular Hemoglobin Concent 33 g/dL (31-37) Red Cell Distribution Width 15.5 % (11.5-14.5) Platelet Count 122 x10^3/uL (140-400) Neutrophils (%) (Auto) 71 % (31-73) Lymphocytes (%) (Auto) 11 % (24-48) Monocytes (%) (Auto) 17 % (0-9) Eosinophils (%) (Auto) 1 % (0-3) Basophils (%) (Auto) 0 % (0-3) Neutrophils # (Auto) 6.0 x10^3/uL (1.8-7.7) Lymphocytes # (Auto) 0.9 x10^3/uL (1.0-4.8) Monocytes # (Auto) 1.4 x10^3/uL (0.0-1.1) Eosinophils # (Auto) 0.1 x10^3/uL (0.0-0.7) Basophils # (Auto) 0.0 x10^3/uL (0.0-0.2) Sodium Level 144 mmol/L (136-145) Potassium Level 2.8 mmol/L (3.5-5.1) Chloride Level 109 mmol/L (98-107) Carbon Dioxide Level 26 mmol/L (21-32) Anion Gap 9 (6-14) Blood Urea Nitrogen 21 mg/dL (8-26) Creatinine 0.9 mg/dL (0.7-1.3) Estimated GFR (Cockcroft-Gault) 79.8 Glucose Level 130 mg/dL (70-99) Calcium Level 7.4 mg/dL (8.5-10.1) Test 12/09/21 12:30 12/09/21 16:57 O2 Saturation 93 % (92-99) Arterial Blood pH 7.54 (7.35-7.45) Arterial Blood pCO2 at Patient Temp 32 mmHg (35-46) Arterial Blood pO2 at Patient Temp 62 mmHg (65-108) Arterial Blood HCO3 27 mmol/L (21-28) Arterial Blood Base Excess 4 mmol/L (-3-3) FiO2 5l n.c. Glucose (Fingerstick) 128 mg/dL (70-99) Problem List Problems Medical Problems: (1) Hypokalemia Status: Acute (2) Lactic acidosis Status: Acute (3) Pancreatitis Status: Acute (4) Paroxysmal atrial fibrillation Status: Acute Assessment/Plan s/p lap saundra cont supportive care agree with pulm consult Justicifation of Admission Dx: Justifications for Admission: Justification of Admission Dx: Yes TIERA BLANCHARD MD Dec 09, 2021 19:40
[2021-12-09 23:11] VITALS: BP 134/77
[2021-12-10 03:07] VITALS: BP 121/61
[2021-12-10 07:15] VITALS: BP 139/64
[2021-12-10] MEDS: IPRATRPIUM/ALBUTEROL 0.5/2.5MG 3 ML NEBU. NEB SCH ×4 (07:17→20:34)
[2021-12-10] MEDS: INSULIN LISPRO 300 UNITS/3 ML VIAL. SQ SCH ×3 (08:00→17:00)
[2021-12-10] MEDS: DOCUSATE SODIUM 100 MG CAPSULE. PO SCH ×2 (08:54→20:47)
[2021-12-10] MEDS: PANTOPRAZOLE 40 MG TABLET.DR. PO SCH (08:54)
[2021-12-10] MEDS: HEPARIN for SUB-Q USE 5,000 UNIT/ML VIAL. SQ SCH ×2 (08:57→20:48)
--- NOTE | 2021-12-10 09:06 | PDOC ---
[facility] PROGRESS NOTE Date of Service DOS: DATE: 12/10/21 TIME: 09:04 Chief Complaint Chief Complaint Postop day 3 lap saundra Hypoxia Volume overload Pancreatitis Sepsis Lactic acidosis Hypokalemia Hyperglycemia History of Present Illness History of Present Illness 12/10/2021 Patient seen and examined His discharge was held once again yesterday due to hypoxia I have diuresed him twice but he still little hypoxic currently his saturation is 93% I checked ABGs I consulted pulmonary Chest x-ray reviewed Discussed with family Discussed with RN His abdomen has clean dry intact dressings and a right upper quadrant MAURI drain 12/10/2019 Patient seen and examined Discussed with RN Chart reviewed Hope to discharge this afternoon 12/05: Afebrile, currently breathing on 4 L nasal cannula. Some crackling noted on exam in the lung bases. Will administer Lasix 20 mg IV x1. Cholecystectomy prior to discharge, per general surgery. 12/06: Patient evaluated with family at bedside. He notes some improvement in pain. Lipase improving; he may advance his diet to clears. Currently breathing on 5 L nasal cannula; will give Lasix 20 mg x 1. Scheduled for lap saundra maritza orr. 12/07: Patient evaluated bedside. He had laparoscopic cholecystectomy today with normal cholangiogram. Surgical site looks good. Audible wheezing noted. Will initiate duo nebs 4 times daily. Discussed with family at bedside and RN. Init iate soft diet and advance as tolerated. Vitals/I&O Vitals/I&O: Vital Signs Date Time Temp Pulse Resp B/P (MAP) Pulse Ox O2 Delivery O2 Flow Rate FiO2 12/10/21 07:19 93 Nasal Cannula 4.0 12/10/21 07:15 100.1 90 20 139/64 (89) 100.1 I & O 12/09/21 12/09/21 12/10/21 15:00 23:00 07:00 Intake Total 240 ml 120 ml Output Total 60 ml 580 ml Balance 240 ml 60 ml -580 ml Physical Exam General: Alert, No acute distress Heart: Normal S1, Normal S2, Other (tachy) Lungs: Crackles Abdomen: Soft, No tenderness Extremities: No clubbing, No cyanosis Skin: No rashes, No breakdown Labs Labs: Laboratory Tests Test 12/09/21 11:27 12/09/21 12:30 12/09/21 16:57 12/09/21 20:44 Glucose (Fingerstick) 156 mg/dL (70-99) 128 mg/dL (70-99) 150 mg/dL (70-99) O2 Saturation 93 % (92-99) Arterial Blood pH 7.54 (7.35-7.45) Arterial Blood pCO2 at Patient Temp 32 mmHg (35-46) Arterial Blood pO2 at Patient Temp 62 mmHg (65-108) Arterial Blood HCO3 27 mmol/L (21-28) Arterial Blood Base Excess 4 mmol/L (-3-3) FiO2 5l n.c. Test 12/10/21 07:53 Glucose (Fingerstick) 141 mg/dL (70-99) Assessment and Plan Assessmemt and Plan Problems Medical Problems: (1) Hypokalemia Status: Acute (2) Lactic acidosis Status: Acute (3) Pancreatitis Status: Acute (4) Paroxysmal atrial fibrillation Status: Acute Postop day 3 lap saundra Hypoxia Volume overload Pancreatitis Sepsis Lactic acidosis Hypokalemia Hyperglycemia Plan Await pulmonary input Continue O2 per nasal cannula As needed Lasix Home meds DVT prophylaxis Full code As needed pain meds Hope to discharge soon once his hypoxia has resolved Comment Review of Relevant I have reviewed the following items ayo (where applicable) has been applied. Medications: Current Medications Medications (Trade) Dose Ordered Sig/Ayleen Route PRN Reason Start Time Stop Time Status Last Admin Dose Admin Potassium Chloride (Klor-Con) 40 meq 1X ONCE PO 12/09/21 10:00 12/09/21 10:01 DC 12/09/21 10:39 Pantoprazole Sodium (Protonix) 40 mg DAILYAC PO 12/10/21 07:30 12/10/21 08:54 Furosemide (Lasix) 40 mg 1X ONCE IVP 12/09/21 12:30 12/09/21 12:31 DC 12/09/21 13:20 Justifications for Admission Other Justification MONICA ELIZABETH III DO Dec 10, 2021 09:05
--- NOTE | 2021-12-10 09:18 | PATHOLOGY ---
[facility] Accession Number: [id number] . 01 Material submitted: . gallbladder - GALLBLADDER WITH CONTENTS . 01 Clinical history: . GALLSTONE PANCREATITIS LAPAROSCOPIC CHOLECYSTECTOMY WITH CHOLENGIOGRAMS . 02 Diagnosis: Gallbladder, laparoscopic cholecystectomy: - Cholelithiasis - Chronic and focal acute cholecystitis - Segments of fibroadipose tissue showing fat necrosis and acute inflammation. (MAURIM:gabriel; 12/09/2021) MBR 12/10/2021 0856 Local . 02 Comment: There is no evidence of malignancy. (JOHANNA:gabriel; 12/09/2021) . 02 Electronically signed: . Dale Vallejo MD, Pathologist NPI- [id number] . 01 Gross description: . Fixative: Formalin Labeled: Gallbladder with contents Specimen received: A previously disrupted gallbladder with a transmural, adventitial defect (0.3 x 0.3 cm) Dimensions: 7.3 x 2.9 x 1.5 cm Lymph node: A glaser, friable candidate lymph node (0.8 x 0.7 x 0.3 cm) which fragments into two lengthwise pieces Serosa: Blue-raymond, dusky and hemorrhagic Calculi: 2 nash-yellow bosselated choleliths (aggregating 2.0 x 1.0 x 1.0 cm) Mucosa: Green and velvety without nash stippling Average wall thickness: 0.4 cm-1.4 cm Abnormalities: The body displays a mucosa out pouching which narrows the lumen down to 1.3 cm in diameter A1-A3: Gallbladder, represented to include the entirety of the candidate lymph node and to show mucosal out pouching in A2 (NEWHALEN; 12/08/2021) DKA/DKA 12/08/2021 1538 Local . 02 Pathologist provided ICD-10: K81.2 . 02 CPT . 206244 Specimen Comment: A courtesy copy of this report has been sent to [phone] Specimen Comment: [id number] Specimen Comment: Report sent to / DR BLANCHARD Performed at: 01 [facility] [address], [place] [id number] MD Gulshan Lyn MD Phone: [phone] Performed at: 02 [facility] [address] [place], [place] [id number] MD Dale Vallejo MD Phone: [phone]
[2021-12-10] MEDS ORDERED: POTASSIUM CHLORIDE 20 MEQ TABLET.ER. PO ONE (10:00)
--- NOTE | 2021-12-10 10:17 | PDOC ---
Date of Service: DATE: 12/10/21 TIME: 10:14 Subjective: Subjective: Family reports tolerating diet, c/o pain around drain. Objective: Objective: temp 100.1 Vital Signs: Vital Signs Date Time Temp Pulse Resp B/P (MAP) Pulse Ox O2 Delivery O2 Flow Rate FiO2 12/10/21 07:19 93 Nasal Cannula 4.0 12/10/21 07:15 100.1 90 20 139/64 (89) 100.1 Labs: Laboratory Tests Test 12/09/21 11:27 12/09/21 12:30 12/09/21 16:57 12/09/21 20:44 Glucose (Fingerstick) 156 mg/dL 128 mg/dL 150 mg/dL O2 Saturation 93 % Arterial Blood pH 7.54 Arterial Blood pCO2 at Patient Temp 32 mmHg Arterial Blood pO2 at Patient Temp 62 mmHg Arterial Blood HCO3 27 mmol/L Arterial Blood Base Excess 4 mmol/L FiO2 5l n.c. Test 12/10/21 07:53 Glucose (Fingerstick) 141 mg/dL Diagnosis: Gallbladder, laparoscopic cholecystectomy: - Cholelithiasis - Chronic and focal acute cholecystitis - Segments of fibroadipose tissue showing fat necrosis and acute inflammation. PE: GEN: has O2 off LUNGS: diminished, NC 4L HEART: RRR ABD: NABS, soft, some mild discomfort around RUQ drain, output serosang NEURO/PSYCH: awake and alert, waves hello A/P: S/p cholecystectomy Resp failure -- Stable GI-fowler, pulm to see. Justicifation of Admission Dx: Justifications for Admission: Justification of Admission Dx: Yes SEAN SERRANO Dec 10, 2021 10:17
[2021-12-10 11:04] VITALS: BP 133/69
--- NOTE | 2021-12-10 11:43 | PDOC ---
PULMONARY PROGRESS NOTES DATE: 12/10/21 TIME: 11:42 Vitals Vital Signs Date Time Temp Pulse Resp B/P (MAP) Pulse Ox O2 Delivery O2 Flow Rate FiO2 12/10/21 11:16 94 Nasal Cannula 4.0 12/10/21 11:04 99.1 87 18 133/69 (90) 99.1 Lungs: Crackles Labs Laboratory Tests Test 12/08/21 16:46 12/08/21 20:17 12/09/21 04:10 12/09/21 07:15 Glucose (Fingerstick) 102 mg/dL (70-99) 125 mg/dL (70-99) 135 mg/dL (70-99) White Blood Count 8.4 x10^3/uL (4.0-11.0) Red Blood Count 4.25 x10^6/uL (4.30-5.70) Hemoglobin 11.9 g/dL (13.0-17.5) Hematocrit 36.1 % (39.0-53.0) Mean Corpuscular Volume 85 fL (79-100) Mean Corpuscular Hemoglobin 28 pg (25-35) Mean Corpuscular Hemoglobin Concent 33 g/dL (31-37) Red Cell Distribution Width 15.5 % (11.5-14.5) Platelet Count 122 x10^3/uL (140-400) Neutrophils (%) (Auto) 71 % (31-73) Lymphocytes (%) (Auto) 11 % (24-48) Monocytes (%) (Auto) 17 % (0-9) Eosinophils (%) (Auto) 1 % (0-3) Basophils (%) (Auto) 0 % (0-3) Neutrophils # (Auto) 6.0 x10^3/uL (1.8-7.7) Lymphocytes # (Auto) 0.9 x10^3/uL (1.0-4.8) Monocytes # (Auto) 1.4 x10^3/uL (0.0-1.1) Eosinophils # (Auto) 0.1 x10^3/uL (0.0-0.7) Basophils # (Auto) 0.0 x10^3/uL (0.0-0.2) Sodium Level 144 mmol/L (136-145) Potassium Level 2.8 mmol/L (3.5-5.1) Chloride Level 109 mmol/L (98-107) Carbon Dioxide Level 26 mmol/L (21-32) Anion Gap 9 (6-14) Blood Urea Nitrogen 21 mg/dL (8-26) Creatinine 0.9 mg/dL (0.7-1.3) Estimated GFR (Cockcroft-Gault) 79.8 Glucose Level 130 mg/dL (70-99) Calcium Level 7.4 mg/dL (8.5-10.1) Test 12/09/21 11:27 12/09/21 12:30 12/09/21 16:57 12/09/21 20:44 Glucose (Fingerstick) 156 mg/dL (70-99) 128 mg/dL (70-99) 150 mg/dL (70-99) O2 Saturation 93 % (92-99) Arterial Blood pH 7.54 (7.35-7.45) Arterial Blood pCO2 at Patient Temp 32 mmHg (35-46) Arterial Blood pO2 at Patient Temp 62 mmHg (65-108) Arterial Blood HCO3 27 mmol/L (21-28) Arterial Blood Base Excess 4 mmol/L (-3-3) FiO2 5l n.c. Test 12/10/21 07:53 12/10/21 10:55 Glucose (Fingerstick) 141 mg/dL (70-99) 143 mg/dL (70-99) Laboratory Tests Test 12/09/21 12:30 12/09/21 16:57 12/09/21 20:44 12/10/21 07:53 O2 Saturation 93 % (92-99) Arterial Blood pH 7.54 (7.35-7.45) Arterial Blood pCO2 at Patient Temp 32 mmHg (35-46) Arterial Blood pO2 at Patient Temp 62 mmHg (65-108) Arterial Blood HCO3 27 mmol/L (21-28) Arterial Blood Base Excess 4 mmol/L (-3-3) FiO2 5l n.c. Glucose (Fingerstick) 128 mg/dL (70-99) 150 mg/dL (70-99) 141 mg/dL (70-99) Test 12/10/21 10:55 Glucose (Fingerstick) 143 mg/dL (70-99) Medications Active Scripts Medications Dose Route/Sig Max Daily Dose Days Date Category Hydrocodone-Apap 5-325 (Hydrocodone Bit/Acetaminophen) 1 Tab Tablet 1 Tab PO PRN Q4HRS PRN 10 12/08/21 Rx Cetirizine Hcl 10 Mg Tablet 1 Tab PO DAILY 12/04/21 Reported Combivent Respimat Inhal (Ipratropium/Albuterol Sulfate) 4 Gm Aer.w.adap 2 Inh IH QID 12/04/21 Reported Imitrex (Sumatriptan Succinate) 100 Mg Tablet 1 Tab PO UD 07/22/17 Rx Tylenol (Acetaminophen) 325 Mg Tablet 1-2 Tab PO QID 07/22/17 Rx Zofran Odt (Ondansetron) 4 Mg Tab.rapdis 4 Mg PO BID PRN 7 07/22/17 Rx Impression . Full consult dictated Possible acute pulmonary edema Chest x-ray prior to admission revealed some ill-defined pulmonary opacities compatible with nonspecific pneumonitis Patient today has a fever Blood initiate empiric antibiotics CT chest Lasix as needed ANUP ANDERSON MD Dec 10, 2021 11:43
--- NOTE | 2021-12-10 12:10 | RAD ---
EXAMINATION: XR CHEST 1V CLINICAL HISTORY: Edema. TECHNIQUE: XR CHEST 1V COMPARISON: 12/08/2021 FINDINGS/ IMPRESSION: Minimal to no change compared to the prior exam. Persistent small bilateral pleural effusions with overlying airspace disease, greater on the left, a nd diffuse interstitial prominence. Electronically signed by: Matt Aden DO (12/10/2021 12:08 PM) [id number]
[2021-12-10] MEDS ORDERED: PIP/TAZO PER PHARMACY MC PRN (14:30)
[2021-12-10 14:36] VITALS: BP 124/77
[2021-12-10] MEDS ORDERED: FUROSEMIDE 40 MG/4 ML VIAL. IVP ONE (15:00)
[2021-12-10] MEDS: POTASSIUM CHLORIDE 10MEQ 100 ML IV SCH ×4 (15:01→21:00)
--- NOTE | 2021-12-10 15:42 | PDOC ---
SURGICAL PROGRESS NOTE DATE: 12/10/21 TIME: 15:41 Subjective Pt reportedly marissa PO Vital Signs Vital Signs Date Time Temp Pulse Resp B/P (MAP) Pulse Ox O2 Delivery O2 Flow Rate FiO2 12/10/21 14:36 100.8 100 22 124/77 (93) 92 Nasal Cannula 4.0 100.8 I&O l Intake and Output 12/10/21 07:00 Intake Total 360 ml Output Total 640 ml Balance -280 ml Intake Oral 360 ml Output Urine Total 550 ml Drainage Total 90 ml General: Alert, No acute distress Abdomen: Soft, No tenderness, Other (MAURI with serosang) Labs Laboratory Tests Test 12/08/21 16:46 12/08/21 20:17 12/09/21 04:10 12/09/21 07:15 Glucose (Fingerstick) 102 mg/dL (70-99) 125 mg/dL (70-99) 135 mg/dL (70-99) White Blood Count 8.4 x10^3/uL (4.0-11.0) Red Blood Count 4.25 x10^6/uL (4.30-5.70) Hemoglobin 11.9 g/dL (13.0-17.5) Hematocrit 36.1 % (39.0-53.0) Mean Corpuscular Volume 85 fL (79-100) Mean Corpuscular Hemoglobin 28 pg (25-35) Mean Corpuscular Hemoglobin Concent 33 g/dL (31-37) Red Cell Distribution Width 15.5 % (11.5-14.5) Platelet Count 122 x10^3/uL (140-400) Neutrophils (%) (Auto) 71 % (31-73) Lymphocytes (%) (Auto) 11 % (24-48) Monocytes (%) (Auto) 17 % (0-9) Eosinophils (%) (Auto) 1 % (0-3) Basophils (%) (Auto) 0 % (0-3) Neutrophils # (Auto) 6.0 x10^3/uL (1.8-7.7) Lymphocytes # (Auto) 0.9 x10^3/uL (1.0-4.8) Monocytes # (Auto) 1.4 x10^3/uL (0.0-1.1) Eosinophils # (Auto) 0.1 x10^3/uL (0.0-0.7) Basophils # (Auto) 0.0 x10^3/uL (0.0-0.2) Sodium Level 144 mmol/L (136-145) Potassium Level 2.8 mmol/L (3.5-5.1) Chloride Level 109 mmol/L (98-107) Carbon Dioxide Level 26 mmol/L (21-32) Anion Gap 9 (6-14) Blood Urea Nitrogen 21 mg/dL (8-26) Creatinine 0.9 mg/dL (0.7-1.3) Estimated GFR (Cockcroft-Gault) 79.8 Glucose Level 130 mg/dL (70-99) Calcium Level 7.4 mg/dL (8.5-10.1) Test 12/09/21 11:27 12/09/21 12:30 12/09/21 16:57 12/09/21 20:44 Glucose (Fingerstick) 156 mg/dL (70-99) 128 mg/dL (70-99) 150 mg/dL (70-99) O2 Saturation 93 % (92-99) Arterial Blood pH 7.54 (7.35-7.45) Arterial Blood pCO2 at Patient Temp 32 mmHg (35-46) Arterial Blood pO2 at Patient Temp 62 mmHg (65-108) Arterial Blood HCO3 27 mmol/L (21-28) Arterial Blood Base Excess 4 mmol/L (-3-3) FiO2 5l n.c. Test 12/10/21 07:53 12/10/21 10:55 Glucose (Fingerstick) 141 mg/dL (70-99) 143 mg/dL (70-99) Laboratory Tests Test 12/09/21 16:57 12/09/21 20:44 12/10/21 07:53 12/10/21 10:55 Glucose (Fingerstick) 128 mg/dL (70-99) 150 mg/dL (70-99) 141 mg/dL (70-99) 143 mg/dL (70-99) Problem List Problems Medical Problems: (1) Hypokalemia Status: Acute (2) Lactic acidosis Status: Acute (3) Pancreatitis Status: Acute (4) Paroxysmal atrial fibrillation Status: Acute Assessment/Plan s/p lap saundra cont supportive care OK to d/c drain prior to d/c Justicifation of Admission Dx: Justifications for Admission: Justification of Admission Dx: Yes TIERA BLANCHARD MD Dec 10, 2021 15:42
[2021-12-10] MEDS: HYDROcodone/APAP 5/325MG 1 TAB TABLET PO PRN (16:16)
[2021-12-10] MEDS: PIPERACILLIN/TAZOBACTAM 3.375 GM in IV NORMAL SALINE 50ML 50 ML IV SCH ×2 (16:56→23:58)
--- NOTE | 2021-12-10 17:16 | NUR ---
Wound Care Pt in dialysis, will follow up tomorrow
[2021-12-10 19:59] VITALS: BP 116/67
--- NOTE | 2021-12-10 23:20 | RAD ---
EXAM: CT CHEST WITHOUT CONTRAST HISTORY: Possible interstitial lung disease COMPARISON: Chest radiograph 12/10/2021 TECHNIQUE: Helical CT of the chest performed without contrast. Coronal and sagittal reformats were o btained. One or more of the following individualized dose reduction techniques were utilized for this examinat ion: 1. Automated exposure control 2. Adjustment of the mA and/or kV according to patient size 3. Use of iterative reconstruction technique. FINDINGS: Thyroid gland and thoracic inlet: There are calcifications in the thyroid gland. Heart and great vessels: The heart is normal in size. No pericardial effusion. No coronary artery morena cifications. There is an ascending thoracic aortic aneurysm measuring 4.8 cm in diameter. Mediastinum and rj: No mediastinal or hilar lymphadenopathy. Lungs and pleura: Mild subpleural opacities in the apices, likely pleural parenchymal scarring. There are small bilateral pleural effusions with adjacent compressive atelectasis in the lower lobes. No c onvincing subpleural reticulation, the cystic changes, or honeycombing. No traction bronchiectasis. Chest wall and axillae: No axillary lymphadenopathy. Upper abdomen: There is peripancreatic inflammation consistent with acute pancreatitis. A drain is se en in the right upper quadrant. There are 3 hypodensities in the liver measuring up to 8 mm, too smal l to characterize. Bones: There is a chronic appearing compression fracture of T12 with 35 percent vertebral body height loss and no retropulsion. There is kyphosis of T11-T12. IMPRESSION: 1. No convincing evidence of interstitial lung disease. 2. Ascending thoracic aortic aneurysm measuring 4.8 cm in diameter. Recommend cardiology consultatio n. 3. Small bilateral pleural effusions with adjacent atelectasis. 4. Findings of acute pancreatitis. 5. 3 subcentimeter hypodensities in the liver, too small characterize. Electronically signed by: Bibi Eller MD (12/10/2021 11:18 PM) [facility]ALS[facility]DR[facility]
[2021-12-11] MEDS: PIPERACILLIN/TAZOBACTAM 3.375 GM in IV NORMAL SALINE 50ML 50 ML IV SCH ×4 (06:00→23:53)
[2021-12-11 07:00] VITALS: BP 112/61
[2021-12-11] MEDS: IPRATRPIUM/ALBUTEROL 0.5/2.5MG 3 ML NEBU. NEB SCH ×4 (08:00→20:16)
[2021-12-11] MEDS: DOCUSATE SODIUM 100 MG CAPSULE. PO SCH ×2 (08:09→20:18)
[2021-12-11] MEDS: PANTOPRAZOLE 40 MG TABLET.DR. PO SCH (08:11)
[2021-12-11] MEDS: HEPARIN for SUB-Q USE 5,000 UNIT/ML VIAL. SQ SCH ×2 (08:15→20:26)
[2021-12-11] MEDS: INSULIN LISPRO 300 UNITS/3 ML VIAL. SQ SCH ×3 (08:16→17:00)
--- NOTE | 2021-12-11 09:14 | PDOC ---
SURGICAL PROGRESS NOTE DATE: 12/11/21 TIME: 09:12 Subjective no nausea low appetite denies pain Vital Signs Vital Signs Date Time Temp Pulse Resp B/P (MAP) Pulse Ox O2 Delivery O2 Flow Rate FiO2 12/11/21 08:39 98 Nasal Cannula 4.0 12/11/21 07:00 96.5 69 16 112/61 (78) 96.5 I&O Intake and Output 12/11/21 07:00 Intake Total 120 ml Output Total 1100 ml Balance -980 ml Intake Oral 120 ml Output Urine Total 1100 ml General: Alert, Cooperative Abdomen: Soft, Other (drain serous ) Labs Laboratory Tests Test 12/09/21 11:27 12/09/21 12:30 12/09/21 16:57 12/09/21 20:44 Glucose (Fingerstick) 156 mg/dL (70-99) 128 mg/dL (70-99) 150 mg/dL (70-99) O2 Saturation 93 % (92-99) Arterial Blood pH 7.54 (7.35-7.45) Arterial Blood pCO2 at Patient Temp 32 mmHg (35-46) Arterial Blood pO2 at Patient Temp 62 mmHg (65-108) Arterial Blood HCO3 27 mmol/L (21-28) Arterial Blood Base Excess 4 mmol/L (-3-3) FiO2 5l n.c. Test 12/10/21 07:53 12/10/21 10:55 12/10/21 17:05 12/10/21 21:01 Glucose (Fingerstick) 141 mg/dL (70-99) 143 mg/dL (70-99) 145 mg/dL (70-99) 137 mg/dL (70-99) Test 12/11/21 07:19 Glucose (Fingerstick) 152 mg/dL (70-99) Laboratory Tests Test 12/10/21 10:55 12/10/21 17:05 12/10/21 21:01 12/11/21 07:19 Glucose (Fingerstick) 143 mg/dL (70-99) 145 mg/dL (70-99) 137 mg/dL (70-99) 152 mg/dL (70-99) Problem List Problems Medical Problems: (1) Hypokalemia Status: Acute (2) Lactic acidosis Status: Acute (3) Pancreatitis Status: Acute (4) Paroxysmal atrial fibrillation Status: Acute Assessment/Plan still on o2, medical management can dc [place] when ready to dc home Justicifation of Admission Dx: Justifications for Admission: Justification of Admission Dx: Yes CINDY FOX CLAIM INVESTIGATOR Dec 11, 2021 09:14
--- NOTE | 2021-12-11 09:20 | CONS ---
DATE OF CONSULTATION: 12/10/2021 REFERRING PHYSICIAN: Elijah Garcia DO CONSULTING PHYSICIAN: Libertad Al MD REASON FOR CONSULTATION: The patient is seen in pulmonary consultation at the request of Dr. Garcia for abnormal x-ray, increasing shortness of breath. HISTORY OF PRESENT ILLNESS: The patient is an 86-year-old who was admitted with abdominal pain, underwent a laparoscopic cholecystectomy with cholangiogram on 12/07. The patient over the last 24-48 hours has become increasingly more short of breath, in fact it was due to discharge in consequence of his hypoxemia and increasing shortness of breath. His discharge was canceled. I reviewed the x-ray from the . There were bilateral infiltrates and bilateral effusions, compatible with CHF. The patient was given some Lasix. I was asked to see him in consultation for further evaluation and management. His son at the bedside was interpreting the patient. Smoked, but quit well over 20 years ago. Uses a metered dose inhaler at home. No oxygen supplementation. Never been admitted for COPD. He currently has a cough, mostly nonproductive. No emesis recently. PAST MEDICAL HISTORY: Remarkable for migraine headaches. Otherwise, there is no significant past history except for dementia, COPD, and seasonal allergies. FAMILY HISTORY: Noncontributory. SOCIAL HISTORY: He is currently not smoking. There is no history of alcoholism. REVIEW OF SYSTEMS: As indicated above, otherwise other systems were reviewed per family and negative. CURRENT MEDICATIONS: List was reviewed. ALLERGIES: No known drug allergies. CURRENT MEDICATIONS: He is receiving Colace, heparin subcutaneously, insulin, nebulized treatments. PHYSICAL EXAMINATION: VITAL SIGNS: Stable. O2 saturation was greater than 92%. NECK: Jugular venous distention was not elevated. No lymphadenopathy. CHEST: Full expansion. LUNGS: Crackles throughout both lung pretty. CARDIOVASCULAR: Regular rate and rhythm with S1, S2. No S3. ABDOMEN: Soft. EXTREMITIES: No clubbing, cyanosis or pitting edema. LABORATORY DATA: Reviewed. White count was normal, hemoglobin and hematocrit noted. Electrolytes were noted. BUN and creatinine were noted. Potassium is low. Arterial blood gas; pH of 7.54, PaCO2 of 32, paO2 of 62. IMPRESSION: 1. Expected hypoxemic respiratory failure. 2. Status post cholecystectomy. 3. Underlying chronic obstructive pulmonary disease. 4. Abnormal x-ray, compatible with pulmonary infiltrates, suspect mostly pulmonary edema, possibly underlying interstitial lung disease. 5. Tobacco dependence, in remission. DISCUSSION: I reviewed the initial x-ray prior to the patient's operation, he had some increased hazy opacities at that time compatible with nonspecific interstitial pneumonitis. If the x-ray continues to be abnormal, I think there is a component of pulmonary edema. PLAN: We will plan on providing IV Lasix, replacing potassium. Obtain CT chest. It is certainly possible that the patient has chronic nonspecific pneumonitis. I reviewed his medication list prior to admission, nothing stands out that would explain the pulmonary infiltrates. I do not think he has had any severe episodes of emesis leading to aspiration. I have noted that he has a low-grade fever today at 100.1. We will initiate empiric antibiotics. I do appreciate the privilege in sharing in patient's care. SILVER/SUZETTE DR: Marlon TID: [id number]
--- NOTE | 2021-12-11 09:46 | PDOC ---
PULMONARY PROGRESS NOTES DATE: 12/11/21 TIME: 09:46 Subjective Patient still short of air with exertion, through his [id number] who is interpreting, he feels dizzy when he stands up. Cough mostly Vitals Vital Signs Date Time Temp Pulse Resp B/P (MAP) Pulse Ox O2 Delivery O2 Flow Rate FiO2 12/11/21 08:39 98 Nasal Cannula 4.0 12/11/21 07:00 96.5 69 16 112/61 (78) 96.5 ROS: No Nausea, No Chest Pain, No Abdominal Pain, No Increase Cough General: Alert Lungs: Crackles Cardiovascular: S1, S2 Abdomen: Soft Neuro Exam: Alert Extremities: No Edema Skin: Warm Labs Laboratory Tests Test 12/09/21 11:27 12/09/21 12:30 12/09/21 16:57 12/09/21 20:44 Glucose (Fingerstick) 156 mg/dL (70-99) 128 mg/dL (70-99) 150 mg/dL (70-99) O2 Saturation 93 % (92-99) Arterial Blood pH 7.54 (7.35-7.45) Arterial Blood pCO2 at Patient Temp 32 mmHg (35-46) Arterial Blood pO2 at Patient Temp 62 mmHg (65-108) Arterial Blood HCO3 27 mmol/L (21-28) Arterial Blood Base Excess 4 mmol/L (-3-3) FiO2 5l n.c. Test 12/10/21 07:53 12/10/21 10:55 12/10/21 17:05 12/10/21 21:01 Glucose (Fingerstick) 141 mg/dL (70-99) 143 mg/dL (70-99) 145 mg/dL (70-99) 137 mg/dL (70-99) Test 12/11/21 07:19 Glucose (Fingerstick) 152 mg/dL (70-99) Laboratory Tests Test 12/10/21 10:55 12/10/21 17:05 12/10/21 21:01 12/11/21 07:19 Glucose (Fingerstick) 143 mg/dL (70-99) 145 mg/dL (70-99) 137 mg/dL (70-99) 152 mg/dL (70-99) Medications Active Scripts Medications Dose Route/Sig Max Daily Dose Days Date Category Hydrocodone-Apap 5-325 (Hydrocodone Bit/Acetaminophen) 1 Tab Tablet 1 Tab PO PRN Q4HRS PRN 10 12/08/21 Rx Cetirizine Hcl 10 Mg Tablet 1 Tab PO DAILY 12/04/21 Reported Combivent Respimat Inhal (Ipratropium/Albuterol Sulfate) 4 Gm Aer.w.adap 2 Inh IH QID 12/04/21 Reported Imitrex (Sumatriptan Succinate) 100 Mg Tablet 1 Tab PO UD 07/22/17 Rx Tylenol (Acetaminophen) 325 Mg Tablet 1-2 Tab PO QID 07/22/17 Rx Zofran Odt (Ondansetron) 4 Mg Tab.rapdis 4 Mg PO BID PRN 7 07/22/17 Rx Impression . IMPRESSION: 1. Expected hypoxemic respiratory failure. 2. Status post cholecystectomy. 3. Underlying chronic obstructive pulmonary disease. 4. Abnormal x-ray, compatible with pulmonary infiltrates, suspect mostly pulmonary edema, possibly underlying interstitial lung disease. 5. Tobacco dependence, in remission. Plan . Updated 12/11 CT reviewed, no evidence of interstitial lung disease some compressive atelectasis, bilateral small effusions. Continue diuresis Arterial blood gas on room air Discussed with [id number] at the bedside, family is adamant about going home, discussed with Rose discharge planning, Low-grade fever yesterday may be secondary to atelectasis Surgery recommends discontinuing MAURI prior to discharge For now continue empiric antibiotics Possible dry discharge 24-48, will change to oral antibiotics upon discharge 12/10 DISCUSSION: I reviewed the initial x-ray prior to the patient's operation, he had some increased hazy opacities at that time compatible with nonspecific interstitial pneumonitis. If the x-ray continues to be abnormal, I think there is a component of pulmonary edema. PLAN: We will plan on providing IV Lasix, replacing potassium. Obtain CT chest. It is certainly possible that the patient has chronic nonspecific pneumonitis. I reviewed his medication list prior to admission, nothing stands out that would explain the pulmonary infiltrates. I do not think he has had any severe episodes of emesis leading to aspiration. I have noted that he has a low-grade fever today at 100.1. We will initiate empiric antibiotics. I do appreciate the privilege in sharing in patient's care. ANUP ANDERSON MD Dec 11, 2021 09:46
--- NOTE | 2021-12-11 10:09 | PDOC ---
Date of Service: DATE: 12/11/21 TIME: 10:06 Subjective: Subjective: Family says no GI complaints except abd sore when coughs. Eating. Objective: Vital Signs: Vital Signs Date Time Temp Pulse Resp B/P (MAP) Pulse Ox O2 Delivery O2 Flow Rate FiO2 12/11/21 08:39 98 Nasal Cannula 4.0 12/11/21 07:00 96.5 69 16 112/61 (78) 96.5 Labs: Laboratory Tests Test 12/10/21 10:55 12/10/21 17:05 12/10/21 21:01 12/11/21 07:19 Glucose (Fingerstick) 143 mg/dL 145 mg/dL 137 mg/dL 152 mg/dL Imaging: Chest CT 12/10 IMPRESSION: 1. No convincing evidence of interstitial lung disease. 2. Ascending thoracic aortic aneurysm measuring 4.8 cm in diameter. Recommend cardiology consultation. 3. Small bilateral pleural effusions with adjacent atelectasis. 4. Findings of acute pancreatitis. 5. 3 subcentimeter hypodensities in the liver, too small characterize. CXR 12/10 IMPRESSION: Minimal to no change compared to the prior exam. Persistent small bilateral pleural effusions with overlying airspace disease, greater on the left, and diffuse interstitial prominence. PE: GEN: NAD, some grunting LUNGS: diminished, 4L NC HEART: RRR ABD: soft, BS+, minimal serous output from drain NEURO/PSYCH: awake and alert, family translated A/P: S/p cholecystectomy, pancreatitis Resp failure - chest CT noted -- Remains stable/improved GI-fowler. Justicifation of Admission Dx: Justifications for Admission: Justification of Admission Dx: Yes SEAN SERRANO Dec 11, 2021 10:09
[2021-12-11 11:00] VITALS: BP 101/57
[2021-12-11 11:15] LABS: GFR 70.7; MAGNESIUM 2.3 mg/dL (1.8-2.4); POTASSIUM 4.4 mmol/L (3.5-5.1)
[2021-12-11 13:00] LABS: BASE EXCESS ABG 0 mmol/L (-3-3); HCO3 ABG 22 mmol/L (21-28); PCO2 ABG 29 mmHg (35-46); SAT O2 ABG 90 % (92-99)
[2021-12-11 13:04] LABS: FIO2 ABG 21; PO2 ABG 50 mmHg (65-108)
[2021-12-11 15:00] VITALS: BP 114/61
[2021-12-11 19:47] VITALS: BP 118/62
[2021-12-11] MEDS: HYDROcodone/APAP 5/325MG 1 TAB TABLET PO PRN (20:18)
--- NOTE | 2021-12-11 20:57 | PDOC ---
[facility] PROGRESS NOTE Date of Service DOS: DATE: 12/11/21 TIME: 20:56 Chief Complaint Chief Complaint Postop day 3 lap saundra Hypoxia Volume overload Pancreatitis Sepsis Lactic acidosis Hypokalemia Hyperglycemia History of Present Illness History of Present Illness 12/11 Patient evaluated examined at bedside. Doing well no major changes. Discussed with pulmonary team. 6-minute walk once oxygen. Out can discharge. Likely discharge over the weekend. 12/10/2021 Patient seen and examined His discharge was held once again yesterday due to hypoxia I have diuresed him twice but he still little hypoxic currently his saturation is 93% I checked ABGs I consulted pulmonary Chest x-ray reviewed Discussed with family Discussed with RN His abdomen has clean dry intact dressings and a right upper quadrant MAURI drain 12/10/2019 Patient seen and examined Discussed with RN Chart reviewed Hope to discharge this afternoon 12/05: Afebrile, currently breathing on 4 L nasal cannula. Some crackling noted on exam in the lung bases. Will administer Lasix 20 mg IV x1. Cholecystectomy prior to discharge, per general surgery. 12/06: Patient evaluated with family at bedside. He notes some improvement in pain. Lipase improving; he may advance his diet to clears. Currently breathing on 5 L nasal cannula; will give Lasix 20 mg x 1. Scheduled for lap saundra tomorrow morning. 12/07: Patient evaluated bedside. He had laparoscopic cholecystectomy today with normal cholangiogram. Surgical site looks good. Audible wheezing noted. Will initiate duo nebs 4 times daily. Discussed with family at bedside and RN. Initiate soft diet and advance as tolerated. Vitals/I&O Vitals/I&O: Vital Signs Date Time Temp Pulse Resp B/P (MAP) Pulse Ox O2 Delivery O2 Flow Rate FiO2 12/11/21 20:18 18 12/11/21 20:16 96 Room Air 3.0 12/11/21 19:47 97.3 110 118/62 (80) 97.3 I & O 12/10/21 12/10/21 12/11/21 15:00 23:00 07:00 Intake Total 120 ml Output Total 900 ml 200 ml Balance 120 ml -900 ml -200 ml Physical Exam General: Alert, Cooperative Heart: Normal S1, Normal S2, Other (tachy) Lungs: Crackles Abdomen: Soft, Other (drain serous ) Extremities: No clubbing, No cyanosis Skin: No rashes, No breakdown Labs Labs: Laboratory Tests Test 12/10/21 21:01 12/11/21 07:19 12/11/21 10:41 12/11/21 11:31 Glucose (Fingerstick) 137 mg/dL (70-99) 152 mg/dL (70-99) 123 mg/dL (70-99) Sodium Level 143 mmol/L (136-145) Potassium Level 4.4 mmol/L (3.5-5.1) Chloride Level 109 mmol/L (98-107) Carbon Dioxide Level 25 mmol/L (21-32) Anion Gap 9 (6-14) Blood Urea Nitrogen 29 mg/dL (8-26) Creatinine 1.0 mg/dL (0.7-1.3) Estimated GFR (Cockcroft-Gault) 70.7 Glucose Level 78 mg/dL (70-99) Calcium Level 8.0 mg/dL (8.5-10.1) Magnesium Level 2.3 mg/dL (1.8-2.4) Test 12/11/21 12:45 12/11/21 17:02 12/11/21 20:46 O2 Saturation 90 % (92-99) Arterial Blood pH 7.51 (7.35-7.45) Arterial Blood pCO2 at Patient Temp 29 mmHg (35-46) Arterial Blood pO2 at Patient Temp 50 mmHg (65-108) Arterial Blood HCO3 22 mmol/L (21-28) Arterial Blood Base Excess 0 mmol/L (-3-3) FiO2 21 Glucose (Fingerstick) 135 mg/dL (70-99) 171 mg/dL (70-99) Assessment and Plan Assessmemt and Plan Problems Medical Problems: (1) Hypokalemia Status: Acute (2) Lactic acidosis Status: Acute (3) Pancreatitis Status: Acute (4) Paroxysmal atrial fibrillation Status: Acute Comment Review of Relevant I have reviewed the following items ayo (where applicable) has been applied. Justifications for Admission Other Justification KEYONNA FLORES MD Dec 11, 2021 20:57
[2021-12-11 23:59] VITALS: BP 101/61
[2021-12-12 03:44] VITALS: BP 110/60
[2021-12-12] MEDS: PIPERACILLIN/TAZOBACTAM 3.375 GM in IV NORMAL SALINE 50ML 50 ML IV SCH ×2 (05:54→12:14)
[2021-12-12] MEDS: IPRATRPIUM/ALBUTEROL 0.5/2.5MG 3 ML NEBU. NEB SCH ×2 (07:05→11:01)
[2021-12-12 07:30] VITALS: BP 122/78
[2021-12-12] MEDS: INSULIN LISPRO 300 UNITS/3 ML VIAL. SQ SCH ×2 (08:00→12:00)
--- NOTE | 2021-12-12 08:10 | PDOC ---
PULMONARY PROGRESS NOTES DATE: 12/12/21 TIME: 08:10 Subjective Patient less short of air, son at the bedside, no productive cough Vitals Vital Signs Date Time Temp Pulse Resp B/P (MAP) Pulse Ox O2 Delivery O2 Flow Rate FiO2 12/12/21 07:30 99.1 93 18 122/78 (93) 95 Nasal Cannula 4.0 99.1 ROS: No Nausea, No Chest Pain, No Abdominal Pain, No Increase Cough General: Alert Lungs: Crackles Cardiovascular: S1, S2 Abdomen: Soft Neuro Exam: Alert Extremities: No Edema Skin: Warm Labs Laboratory Tests Test 12/10/21 10:55 12/10/21 17:05 12/10/21 21:01 12/11/21 07:19 Glucose (Fingerstick) 143 mg/dL (70-99) 145 mg/dL (70-99) 137 mg/dL (70-99) 152 mg/dL (70-99) Test 12/11/21 10:41 12/11/21 11:31 12/11/21 12:45 12/11/21 17:02 Sodium Level 143 mmol/L (136-145) Potassium Level 4.4 mmol/L (3.5-5.1) Chloride Level 109 mmol/L (98-107) Carbon Dioxide Level 25 mmol/L (21-32) Anion Gap 9 (6-14) Blood Urea Nitrogen 29 mg/dL (8-26) Creatinine 1.0 mg/dL (0.7-1.3) Estimated GFR (Cockcroft-Gault) 70.7 Glucose Level 78 mg/dL (70-99) Calcium Level 8.0 mg/dL (8.5-10.1) Magnesium Level 2.3 mg/dL (1.8-2.4) Glucose (Fingerstick) 123 mg/dL (70-99) 135 mg/dL (70-99) O2 Saturation 90 % (92-99) Arterial Blood pH 7.51 (7.35-7.45) Arterial Blood pCO2 at Patient Temp 29 mmHg (35-46) Arterial Blood pO2 at Patient Temp 50 mmHg (65-108) Arterial Blood HCO3 22 mmol/L (21-28) Arterial Blood Base Excess 0 mmol/L (-3-3) FiO2 21 Test 12/11/21 20:46 12/12/21 07:33 Glucose (Fingerstick) 171 mg/dL (70-99) 141 mg/dL (70-99) Laboratory Tests Test 12/11/21 10:41 12/11/21 11:31 12/11/21 12:45 12/11/21 17:02 Sodium Level 143 mmol/L (136-145) Potassium Level 4.4 mmol/L (3.5-5.1) Chloride Level 109 mmol/L (98-107) Carbon Dioxide Level 25 mmol/L (21-32) Anion Gap 9 (6-14) Blood Urea Nitrogen 29 mg/dL (8-26) Creatinine 1.0 mg/dL (0.7-1.3) Estimated GFR (Cockcroft-Gault) 70.7 Glucose Level 78 mg/dL (70-99) Calcium Level 8.0 mg/dL (8.5-10.1) Magnesium Level 2.3 mg/dL (1.8-2.4) Glucose (Fingerstick) 123 mg/dL (70-99) 135 mg/dL (70-99) O2 Saturation 90 % (92-99) Arterial Blood pH 7.51 (7.35-7.45) Arterial Blood pCO2 at Patient Temp 29 mmHg (35-46) Arterial Blood pO2 at Patient Temp 50 mmHg (65-108) Arterial Blood HCO3 22 mmol/L (21-28) Arterial Blood Base Excess 0 mmol/L (-3-3) FiO2 21 Test 12/11/21 20:46 12/12/21 07:33 Glucose (Fingerstick) 171 mg/dL (70-99) 141 mg/dL (70-99) Medications Active Scripts Medications Dose Route/Sig Max Daily Dose Days Date Category Hydrocodone-Apap 5-325 (Hydrocodone Bit/Acetaminophen) 1 Tab Tablet 1 Tab PO PRN Q4HRS PRN 10 12/08/21 Rx Cetirizine Hcl 10 Mg Tablet 1 Tab PO DAILY 12/04/21 Reported Combivent Respimat Inhal (Ipratropium/Albuterol Sulfate) 4 Gm Aer.w.adap 2 Inh IH QID 12/04/21 Reported Imitrex (Sumatriptan Succinate) 100 Mg Tablet 1 Tab PO UD 07/22/17 Rx Tylenol (Acetaminophen) 325 Mg Tablet 1-2 Tab PO QID 07/22/17 Rx Zofran Odt (Ondansetron) 4 Mg Tab.rapdis 4 Mg PO BID PRN 7 07/22/17 Rx Impression . IMPRESSION: 1. Expected hypoxemic respiratory failure. 2. Status post cholecystectomy. 3. Underlying chronic obstructive pulmonary disease. 4. Abnormal x-ray, compatible with pulmonary infiltrates, suspect mostly pulmonary edema, possibly underlying interstitial lung disease. 5. Tobacco dependence, in remission. CT chest 12/10 IMPRESSION: 1. No convincing evidence of interstitial lung disease. 2. Ascending thoracic aortic aneurysm measuring 4.8 cm in diameter. Recommend cardiology consultation. 3. Small bilateral pleural effusions with adjacent atelectasis. 4. Findings of acute pancreatitis. 5. 3 subcentimeter hypodensities in the liver, too small characterize. Plan . Updated 12/12 Discussed with hospitalist Okay to discharge home 6-minute walk Follow-up with me in the office in 4 weeks Updated 12/11 CT reviewed, no evidence of interstitial lung disease some compressive atelectasis, bilateral small effusions. Continue diuresis Arterial blood gas on room air Discussed with [id number] at the bedside, family is adamant about going home, discussed with Rose discharge planning, Low-grade fever yesterday may be secondary to atelectasis Surgery recommends discontinuing MAURI prior to discharge For now continue empiric antibiotics Possible dry discharge 24-48, will change to oral antibiotics upon discharge ANUP ANDERSON MD Dec 12, 2021 08:10
--- NOTE | 2021-12-12 08:41 | NUR ---
patients family came out of room and stated that he had pulled his MAURI drain out when using his urinal. Covered the area. Spoke with Dr. Perez, he said it was ok to leave out.
[2021-12-12] MEDS: PANTOPRAZOLE 40 MG TABLET.DR. PO SCH (08:51)
[2021-12-12] MEDS: DOCUSATE SODIUM 100 MG CAPSULE. PO SCH (08:51)
[2021-12-12] MEDS: HEPARIN for SUB-Q USE 5,000 UNIT/ML VIAL. SQ SCH (09:06)
--- NOTE | 2021-12-12 09:49 | PDOC ---
[facility] PROGRESS NOTE Date of Service DOS: DATE: 12/12/21 TIME: 09:42 Chief Complaint Chief Complaint Postop day 4 lap saundra Hypoxia Volume overload Pancreatitis Sepsis Lactic acidosis Hypokalemia Hyperglycemia History of Present Illness History of Present Illness 12/12/21 Patient seen and examined Chart reviewed Case discussed with family and case management He is currently improving, his O2 needs have decreased from 5L to 4L today Discussed with pulmonary team Likely discharge with home O2 12/11 Patient evaluated examined at bedside. Doing well no major changes. Discussed with pulmonary team. 6-minute walk once oxygen. Out can discharge. Likely discharge over the weekend. 12/10/2021 Patient seen and examined His discharge was held once again yesterday due to hypoxia I have diuresed him twice but he still little hypoxic currently his saturation is 93% I checked ABGs I consulted pulmonary Chest x-ray reviewed Discussed with family Discussed with RN His abdomen has clean dry intact dressings and a right upper quadrant MAURI drain 12/10/2019 Patient seen and examined Discussed with RN Chart reviewed Hope to discharge this afternoon 12/05: Afebrile, currently breathing on 4 L nasal cannula. Some crackling noted on exam in the lung bases. Will administer Lasix 20 mg IV x1. Cholecystectomy prior to discharge, per general surgery. 12/06: Patient evaluated with family at bedside. He notes some improvement in pain. Lipase improving; he may advance his diet to clears. Currently breathing on 5 L nasal cannula; will give Lasix 20 mg x 1. Scheduled for lap saundra tomorrow morning. 12/07: Patient evaluated bedside. He had laparoscopic cholecystectomy today with normal cholangiogram. Surgical site looks good. Audible wheezing noted. Will initiate duo nebs 4 times daily. Discussed with family at bedside and RN. Initiate soft diet and advance as tolerated. Vitals/I&O Vitals/I&O: Vital Signs Date Time Temp Pulse Resp B/P (MAP) Pulse Ox O2 Delivery O2 Flow Rate FiO2 12/12/21 07:30 99.1 93 18 122/78 (93) 95 Nasal Cannula 4.0 99.1 I & O 12/11/21 12/11/21 12/12/21 15:00 23:00 07:00 Output Total 250 ml 30 ml 570 ml Balance -250 ml -30 ml -570 ml Physical Exam General: Alert, Cooperative Heart: Regular rate, Normal S1, Normal S2, Other (tachy) Lungs: Clear, Crackles Abdomen: Soft, Other (drain serous ) Extremities: No clubbing, No cyanosis Skin: No rashes, No breakdown Labs Labs: Laboratory Tests Test 12/11/21 10:41 12/11/21 11:31 12/11/21 12:45 12/11/21 17:02 Sodium Level 143 mmol/L (136-145) Potassium Level 4.4 mmol/L (3.5-5.1) Chloride Level 109 mmol/L (98-107) Carbon Dioxide Level 25 mmol/L (21-32) Anion Gap 9 (6-14) Blood Urea Nitrogen 29 mg/dL (8-26) Creatinine 1.0 mg/dL (0.7-1.3) Estimated GFR (Cockcroft-Gault) 70.7 Glucose Level 78 mg/dL (70-99) Calcium Level 8.0 mg/dL (8.5-10.1) Magnesium Level 2.3 mg/dL (1.8-2.4) Glucose (Fingerstick) 123 mg/dL (70-99) 135 mg/dL (70-99) O2 Saturation 90 % (92-99) Arterial Blood pH 7.51 (7.35-7.45) Arterial Blood pCO2 at Patient Temp 29 mmHg (35-46) Arterial Blood pO2 at Patient Temp 50 mmHg (65-108) Arterial Blood HCO3 22 mmol/L (21-28) Arterial Blood Base Excess 0 mmol/L (-3-3) FiO2 21 Test 12/11/21 20:46 12/12/21 07:33 Glucose (Fingerstick) 171 mg/dL (70-99) 141 mg/dL (70-99) Assessment and Plan Assessmemt and Plan Problems Medical Problems: (1) Hypokalemia Status: Acute (2) Lactic acidosis Status: Acute (3) Pancreatitis Status: Acute (4) Paroxysmal atrial fibrillation Status: Acute Assessment: Postop day 4 lap saundra Hypoxia Volume overload Pancreatitis Sepsis Lactic acidosis Hypokalemia Hyperglycemia Plan: Discuss with family discharging patient with home O2 IV antibiotics Switch to oral antibiotics prior to discharge Pulm has seen, appreciate team's recommendations PT/OT DVT prophylaxis Pain meds PRN Zofran PRN Continue home meds Full Code Comment Review of Relevant I have reviewed the following items ayo (where applicable) has been applied. Justifications for Admission Other Justification MONICA ELIZABETH III DO Dec 12, 2021 09:49
[2021-12-12 10:58] VITALS: BP 117/62
--- NOTE | 2021-12-12 11:22 | PDOC ---
Date of Service: DATE: 12/12/21 TIME: 11:19 Subjective: Subjective: Family says he's doing fine. Objective: Objective: Reviewed chart - pulled drain out. Vital Signs: Vital Signs Date Time Temp Pulse Resp B/P (MAP) Pulse Ox O2 Delivery O2 Flow Rate FiO2 12/12/21 11:01 97 Nasal Cannula 2.0 12/12/21 10:58 98.0 86 20 117/62 (80) 98.0 Labs: Laboratory Tests Test 12/11/21 11:31 12/11/21 17:02 12/11/21 20:46 12/12/21 07:33 Glucose (Fingerstick) 123 mg/dL (70-99) 135 mg/dL (70-99) 171 mg/dL (70-99) 141 mg/dL (70-99) PE: GEN: NAD LUNGS: NC 2L, clearer HEART: RRR ABD: non-distended, soft NEURO/PSYCH: awake and alert, waves hello (family translates) A/P: Pancreatitis s/p cholecystectomy, resp failure -- Stable GI-fowler. Continue per primary/pulm. Justicifation of Admission Dx: Justifications for Admission: Justification of Admission Dx: Yes SEAN SERRANO Dec 12, 2021 11:22
== END 2021-12-12 15:00 | disposition home or self-care (01) | DRG 853 ==
LOC: ER 01:43 → 4 NORTH 04:00
PROVIDERS: ADMIT Internal Medicine; ATTEND Internal Medicine
PROC: BF101ZZ Fluoroscopy of Bile Ducts using Low Osmolar Contrast (ICD-10-PCS; 2021-12-07)
PROC: 0FT44ZZ Resection of Gallbladder, Percutaneous Endoscopic Approach (ICD-10-PCS; principal; 2021-12-07 08:00)
DX: A41.9 Sepsis, unspecified organism (principal); J96.91 Respiratory failure, unspecified with hypoxia; K85.10 Biliary acute pancreatitis without necrosis or infection; J98.11 Atelectasis; K80.10 Calculus of gallbladder with chronic cholecystitis without obstruction; E87.6 Hypokalemia; R73.9 Hyperglycemia, unspecified; F03.90 Unspecified dementia, unspecified severity, without behavioral disturbance, psychotic disturbance, mood disturbance, and anxiety; F17.201 Nicotine dependence, unspecified, in remission; G43.909 Migraine, unspecified, not intractable, without status migrainosus; I48.0 Paroxysmal atrial fibrillation; I50.9 Heart failure, unspecified; I71.2 Thoracic aortic aneurysm, without rupture; J30.2 Other seasonal allergic rhinitis; J44.9 Chronic obstructive pulmonary disease, unspecified; K59.00 Constipation, unspecified; N40.0 Benign prostatic hyperplasia without lower urinary tract symptoms; Y83.6 Removal of other organ (partial) (total) as the cause of abnormal reaction of the patient, or of later complication, without mention of misadventure at the time of the procedure; Z20.822 Contact with and (suspected) exposure to COVID-19
CPT/HCPCS: 36415; 36600; 71045; 71250; 74177; 74300; 76705; 80048; 80053; 80076; 81001; 82805; 82962; 83036; 83605; 83690; 83735; 83880; 84132; 84478; 84484; 85007; 85025; 85610; 85730; 86850; 86900; 86901; 87040; 87428; 88304; 93005; 94618; 94640; 94760; 96361; 96374; 96375; 96376; A4209; A4213; A4314; A4930; A6219; A6402; C1887; C9113; J0690; J0780; J1100; J1644; J1815; J1885; J1940; J2270; J2370; J2405; J2543; J2704; J2710; J3010; J3480; J3490; J7030; J7120; Q9967; 97110-GP; 97116-GP; 99285-25; G0378